=== PATIENT | female | born 1940 | race Caucasian/White ===

== ENCOUNTER 2018-02-13 05:44 | Day surgery (SDC) | payer MEDICARE, BC ==
[2018-02-07 16:26] VITALS: BMI 27.4
--- NOTE | 2018-02-12 12:42 | HP ---
HISTORY AND PHYSICAL Surgery is 02/13/2018 Yasmeen Cabello is a 77-year-old patient seen with progressive right shoulder pain. After treatment options were discussed with her, she elected to proceed with right shoulder arthroscopy. Consent regarding the procedure was obtained. Clearance was provided by Dr. Coates. PAST MEDICAL HISTORY: Past medical history is exm-avyipoy-ijzwxdnke diabetes, hypertension, hypothyroidism, hyperlipidemia. PAST SURGICAL HISTORY: Cholecystectomy, hysterectomy, mastectomy. DAILY MEDICATIONS: 1. Aspirin. 2. Cardizem. 3. Crestor. 4. Imdur. 5. Levothyroxine. 6. Prozac. ALLERGIES: CODEINE and VICODIN, which both cause vomiting. SOCIAL HISTORY: Patient denies tobacco use. PHYSICAL EXAMINATION: Physical evaluation right shoulder: Flexion 140 degrees. Abduction is 90 degrees. External rotation is 30 degrees with weakness. There is tenderness along the anterolateral acromion rotator cuff insertion site. Impingement sign is positive at 90 degrees. Distal neurovascular exam is intact. Right shoulder radiographs revealed cystic changes of the tuberosity, a type 2 anterior acromion and acromioclavicular joint osteoarthritis. A right shoulder MRI revealed rotator cuff tear, labral tear and impingement. IMPRESSION: 1. Right shoulder impingement with rotator cuff tear. 2. Right shoulder labral tear. 3. Hypertension. 4. Hyperlipidemia. 5. Hypothyroidism. PLAN: Right shoulder arthroscopy, subacromial decompression, probable arthroscopic rotator cuff repair and debridement. MMMAKEDAL / KENNETHN: [id number] /
[~2018-02-13 05:44] MED LIST: DEXAMETHASONE SOD PHOSPHATE 10 MG/ML 1 ML VIAL IV ONE; HYDROmorphone 0.5 MG/0.5 ML SYRINGE IVP PRN; LACTATED RINGERS 1,000 ML IV SCH; MORPHINE SULFATE 2 MG/ML SYRINGE IV PRN; ONDANSETRON 4 MG/2 ML VIAL IVP ONE; ceFAZolin IN SWFI 2 GM/20 ML SYRINGE IVP ONE
[2018-02-13] MEDS ORDERED: LIDOCAINE 1% 20 ML VIAL (10MG/ML) FOR IV START INTRADERMA ONE (06:36)
[2018-02-13 06:38] LABS: Glucose,Whole Blood 145 mg/dL (75-99)
[2018-02-13] MEDS ORDERED: MIDAZOLAM 2 MG/2 ML VIAL ONE (06:45)
[2018-02-13] MEDS ORDERED: MIDAZOLAM 2 MG/2 ML VIAL IV ONE (06:56)
--- NOTE | 2018-02-13 07:07 | P.ONQ ---
Anesthesiology Proc Note - PNB - Peripheral Nerve Block Performed Right Interscalene Single Time Out Performed: Yes Procedure Start Time: 06:58 Procedure Stop Time: 07:02 Indication: Acute Post-Operative Pain, Requested by physician (Dr Garcia) Sedation Type: Sedate with meaningful contact maintained Preparation: Sterile Prep Position: Supine Catheter: None Needle Types: ToZapposy Needle Size: 50mm (2") Needle Gauge: 20 Technique: Ultrasound Injectate: 0.5% Ropivacaine (see comment for volume) (30 mls) Blood Aspirated: No Pain Paresthesia on Injection Noted: No Resistance on Injection: Normal Events: Uneventful and Well Tolerated
[2018-02-13] MEDS ORDERED: GLYCOPYRROLATE 0.2 MG/ML 2 ML VIAL ONE (07:26)
[2018-02-13] MEDS ORDERED: NEOSTIGMINE 1 MG/ML 10 ML VIAL ONE (07:26)
[2018-02-13] MEDS ORDERED: fentaNYL (PF) 50 MCG/ML 2 ML AMP ONE (07:26)
[2018-02-13] MEDS ORDERED: LIDOCAINE 1% INJ 10MG/ML (20 ML MDV) ONE (07:26)
[2018-02-13] MEDS ORDERED: ePHEDrine SULFATE/0.9% NACL/PF 50 MG/5 ML SYRINGE IV ONE (07:26)
[2018-02-13] MEDS ORDERED: PROPOFOL 10 MG/ML 20 ML VIAL IV ONE (07:26)
[2018-02-13] MEDS ORDERED: ROCURONIUM BROMIDE 10 MG/ML 10 ML VIAL IV ONE (07:26)
[2018-02-13] MEDS ORDERED: ROPIVACAINE 5 MG/ML 30 ML VIAL ONE (07:26)
[2018-02-13] MEDS ORDERED: LACTATED RINGERS 1,000 ML IV ONE (08:43)
[2018-02-13 08:58] VITALS: TEMP 96.9
--- NOTE | 2018-02-13 09:03 | P.OP ---
Date of Procedure: 02/13/18 Preoperative Diagnosis: Right shoulder impingement Postoperative Diagnosis: 1. Right shoulder rotator cuff tear 2. Right shoulder impingement 3. Right shoulder acromioclavicular joint osteoarthritis 4. Right shoulder partial long head biceps tendon tear 5. Right shoulder labral tear Procedure(s) Performed: 1. Right shoulder arthroscopic rotator cuff repair 2. Right shoulder arthroscopic subacromial decompression 3. Right shoulder arthroscopic Blake procedure 4. Right shoulder arthroscopic biceps tenotomy 5. Right shoulder arthroscopic debridement labral tear Implants: 1Arthrex 5.5 swivel lock anchor Anesthesia: GETA, regional (Interscalene block) Surgeon: Carlos Garcia [employer] Ticket Taker #1: Marshall Yi Estimated Blood Loss (ml): 7 Pathology: none sent Condition: stable Disposition: PACU Indications for Procedure: 77-year-old patient seen with progressive right shoulder pain. After having treatment options discussed, she elected to proceed with arthroscopy. Operative Findings: see description of procedure Description of Procedure: Patient underwent an interscalene block by department of anesthesia for postoperative pain management. The patient was then taken to the operative suite. The patient underwent a general anesthetic by the department of anesthesia. The patient was placed into a lateral position and secured. There was appropriate padding of the bony prominence. Right shoulder was then prepped and draped in normal sterile orthopedic fashion. We placed the extremity in 10 pounds of longitudinal traction. A posterior incision was now made for a posterior working portal site. The trocar and cannula were inserted into the glenohumeral joint. Arthroscopy was initiated. Spinal needle was now inserted anteriorly, to ascertain the anterior working portal site. An incision was now made in that area, a trocar was inserted followed by a probe. There was some superficial tearing of the superior labrum. There was some partial tearing and hyperemia of the biceps tendon. There were grade 1 chondromalacia changes without significant osteochondral tears present. The residual labrum appeared stable. I could visualize a full-thickness rotator cuff tear from the glenohumeral side. I performed an arthroscopic biceps tenotomy. I debrided that superficial labral tear getting down to stable labral tissue. The residual labrum was probed and found to be stable. Instruments were now removed from the glenohumeral joint. Utilizing the posterior working portal site, the trocar and cannula were inserted into the subacromial space. Arthroscopy initiated. I made an incision 2 fingerbreadths lateral to the acromion. I introduced my trocar followed by my ArthroCare ablator. I now began ablating thick subacromial bursal tissue, which exposed the undersurface of the anterior acromion. There was diminished subacromial space. There was a very prominent anterior acromion. A motorized bur was introduced and a subacromial decompression was performed. I also excised some osteophytes off the inferior aspect of the distal clavicle. The AC joint was visualized and noted to be fairly arthritic. The motorized bur was introduced in the anterior portal site and a Blake procedure was performed without difficulty, decompressing the AC joint nicely. I turned my attention to the rotator cuff. There was a 1 cm rotator cuff tear. I debrided the margins getting down to stable tendon tissue. The defect now measured approximately 1.5 cm. There was an intrasubstance tear component to it. I introduced my motorized bur and abraded the footprint area, getting some petechial bleeding. I repaired the intrasubstance component with one single [id number] suture which brought the tendon together very nicely. I now passed 2 everted mattress sutures with the assistance of Goldy HINOJOSA holding the arm in the correct position. I now passed a single loop suture through the central portion of the tear well again oGldy HINOJOSA held the arm in appropriate position. I now punched a hole for fixation at the year the footprint while Goldy HINOJOSA held the arm in appropriate position. All suture limbs were passed into the anchor. The anchor was then placed down into our pre-punch hole. I held anchor in position while Goldy HINOJOSA tension all the sutures and introduced the anchor. There appeared be good fixation. All residual suture limbs were now clipped. We had good compression of the tendon along the entire footprint. I injected 1 mL Renue intra-articular. Instruments now removed from the portal sites. All portal sites were approximated with nylon suture. Sterile dressings were applied followed by a shoulder sling. Marshall HINOJOSA assisted in this case. The patient was awakened, transferred to a bed, and taken to recovery in stable condition.
[2018-02-13 09:25] LABS: Glucose,Whole Blood 151 mg/dL (75-99)
[2018-02-13 10:01] VITALS: RESP 16
[2018-02-13] MEDS ORDERED: ALBUTEROL NEBULIZED 1.25 MG/3 ML INHALATION ONE (11:37)
[2018-02-13] MEDS ORDERED: ALBUTEROL NEBULIZED 2.5 MG/3 ML INHALATION STA (11:40)
[2018-02-13 12:00] VITALS: PULSE 73
[2018-02-13 12:33] VITALS: BP 100/55
== END 2018-02-13 12:53 | disposition home or self-care (01) ==
LOC: OR 05:44
PROVIDERS: ATTEND Orthopaedic Surgery
DX: M75.121 Complete rotator cuff tear or rupture of right shoulder, not specified as traumatic (principal); S43.491A Other sprain of right shoulder joint, initial encounter; S46.111A Strain of muscle, fascia and tendon of long head of biceps, right arm, initial encounter; X58.XXXA Exposure to other specified factors, initial encounter; M94.211 Chondromalacia, right shoulder; M25.711 Osteophyte, right shoulder; M75.41 Impingement syndrome of right shoulder; M19.011 Primary osteoarthritis, right shoulder; J44.9 Chronic obstructive pulmonary disease, unspecified; E78.00 Pure hypercholesterolemia, unspecified; E03.9 Hypothyroidism, unspecified; I10 Essential (primary) hypertension; E11.9 Type 2 diabetes mellitus without complications; F32.9 Major depressive disorder, single episode, unspecified; E55.9 Vitamin D deficiency, unspecified; R42 Dizziness and giddiness; Z79.890 Hormone replacement therapy; Z79.51 Long term (current) use of inhaled steroids; Z79.82 Long term (current) use of aspirin; Z79.899 Other long term (current) drug therapy; Z88.5 Allergy status to narcotic agent; Z90.710 Acquired absence of both cervix and uterus; Z90.10 Acquired absence of unspecified breast and nipple; Z85.3 Personal history of malignant neoplasm of breast; Z87.891 Personal history of nicotine dependence
CPT/HCPCS: 29824; 29827; 29826; 94640; 64415; C1713 ×2; C1765; J2250; J1100; J2710; J2405; J2001; J3010; J2795; J2704; J0690

== ENCOUNTER 2020-05-05 10:28 | Inpatient (IN) | payer MEDICARE, BC ==
[2020-05-05] MEDS ORDERED: ACETAMINOPHEN TAB 325 MG TAB PO STA (10:50)
[2020-05-05] MEDS ORDERED: ALBUTEROL HFA INHALER INHALATION STA (10:55)
--- NOTE | 2020-05-05 10:58 | ED ---
General Adult HPI - General Chief complaint: Shortness of Breath Stated complaint: SOB Time Seen by Provider: 05/05/20 10:36 Source: patient, EMS, RN notes reviewed Mode of arrival: EMS Limitations: physical limitation - History of Present Illness Initial comments: 79-year-old female with a past medical history of COPD, hyperlipidemia, hypertension, remote breast cancer presents to the emergency room for a chief complaint of shortness of breath. She tested positive for covid 7 days ago. States she has had increased shortness of breath since that time however last night it worsened significantly. She did try a breathing treatment but it did not seem to help. Patient states she sometimes answers 2-1/2 L of oxygen at home if she needs it and she has been using this regularly since shes been diagnosed however it does not seem to be helping now. Patient admits to chills and body aches. Unsure if she has fevers.Patient has no other complaints at this time including chest pain, abdominal pain, nausea or vomiting, headache, or visual changes. - Related Data Home Medications Medication Instructions Recorded Confirmed FLUoxetine HCL [PROzac] 20 mg PO DAILY 02/08/18 05/05/20 Rosuvastatin [Crestor] 20 mg PO HS 02/08/18 05/05/20 Diltiazem HCl [Cardizem CD] 240 mg PO DAILY 05/05/20 05/05/20 Latanoprost [Xalatan 0.005%] 1 drop BOTH EYES HS 05/05/20 05/05/20 Levothyroxine Sodium [Synthroid] 50 mcg PO DAILY 05/05/20 05/05/20 Nitroglycerin Sl Tabs [Nitrostat] 0.4 mg SL Q5M PRN 05/05/20 05/05/20 Nystatin 100,000 Unit/ml Susp 500,000 unit PO QID 05/05/20 05/05/20 [Mycostatin Oral Susp] metFORMIN HCL [Glucophage] 500 mg PO DAILY 05/05/20 05/05/20 Allergies Allergy/AdvReac Type Severity Reaction Status Date / Time acetaminophen [From Vicodin] AdvReac Vomiting Verified 05/05/20 10:50 codeine AdvReac Vomiting Verified 05/05/20 10:50 hydrocodone [From Vicodin] AdvReac Vomiting Verified 05/05/20 10:50 Review of Systems ROS Statement: Those systems with pertinent positive or pertinent negative responses have been documented in the HPI. ROS Other: All systems not noted in ROS Statement are negative. Past Medical History Past Medical History: Cancer, Chest Pain / Angina, COPD, Eye Disorder, Hyperlipidemia, Hypertension, Osteoarthritis (OA), Pneumonia Additional Past Medical History / Comment(s): Right breast cancer 16 yrs ago, skin cancer on nose, pneumonia X6, last 2 yrs ago, macular degeneration. History of Any Multi-Drug Resistant Organisms: None Reported Past Surgical History: Breast Surgery, Cholecystectomy, Heart Catheterization, Hysterectomy, Orthopedic Surgery Additional Past Surgical History / Comment(s): Heart Catheterization X2, non cancerous tumor removed from right shoulder, right knee surgery, right mastectomy, kidney biopsy, skin cancer removed from nose, eye surgery for macular degeneration. Past Anesthesia/Blood Transfusion Reactions: Previous Problems w/ Anesthesia Additional Past Anesthesia/Blood Transfusion Reaction / Comment(s): Hard time waking up X1. Past Psychological History: Depression Smoking Status: Former smoker Past Alcohol Use History: Occasional Past Drug Use History: None Reported - Past Family History Mother Family Medical History: No Reported History Father Family Medical History: Cancer Additional Family Medical History / Comment(s): Colon cancer. General Exam Limitations: physical limitation General appearance: alert, in no apparent distress Head exam: Present: atraumatic, normocephalic, normal inspection Eye exam: Present: normal appearance, PERRL, EOMI. Absent: scleral icterus, conjunctival injection, periorbital swelling ENT exam: Present: normal exam, mucous membranes moist Neck exam: Present: normal inspection, full ROM. Absent: tenderness, meningismus, lymphadenopathy Respiratory exam: Present: wheezes. Absent: respiratory distress, rales, rhonchi, stridor Cardiovascular Exam: Present: regular rate, normal rhythm, normal heart sounds. Absent: systolic murmur, diastolic murmur, rubs, gallop, clicks GI/Abdominal exam: Present: soft, normal bowel sounds. Absent: distended, tenderness, guarding, rebound, rigid Course Vital Signs 05/05/20 05/05/20 10:42 12:14 Temperature 99.9 F H 99.4 F Pulse Rate 102 H 98 Respiratory 22 18 Rate Blood Pressure 114/71 133/73 O2 Sat by Pulse 91 L 94 L Oximetry EKG Findings - EKG Comments: EKG Findings:: Sinus rhythm, ventricular rate 100, NH interval 130, QTC 497 Medical Decision Making - Medical Decision Making 79-year-old female on 2 L PRN oxygen at home presents to the emergency room for shortness of breath. She is cold with positive. Patient thought she was going to "kick it" last night. Patient found to be at 88% on 2 L on initial presentation. She was really short of breath, had difficulty speaking in full sentences. She does have minimal wheezing on exam.. She was increased to 4 L in the emergency room. CBC unremarkable. CMP does show mild hypokalemia, replaced orally. It is CRP elevated. LDH elevated. Chest x-ray demonstrates a new left basilar pneumonia and lesser degree of patchy infiltrate at the right lung base. D-dimer slightly elevated at 0.91. I did discuss his case with Dr. Jackman who requests CAT scan be performed. He does accept this admission given patient is acutely hypoxic. She'll be given Decadron given she is requiring oxygen administration for Covid. - Lab Data Result diagrams: 05/05/20 10:52 05/05/20 10:52 Lab Results 05/05/20 05/05/20 05/05/20 Range/Units 10:52 10:52 10:52 WBC 10.3 (3.8-10.6) k/uL RBC 5.21 (3.80-5.40) m/uL Hgb 15.2 (11.4-16.0) gm/dL Hct 44.2 (34.0-46.0) % MCV 84.8 (80.0-100.0) fL MCH 29.1 (25.0-35.0) pg MCHC 34.3 (31.0-37.0) g/dL RDW 13.1 (11.5-15.5) % Plt Count 187 (150-450) k/uL MPV 8.1 Neutrophils % 80 % Lymphocytes % 10 % Monocytes % 8 % Eosinophils % 1 % Basophils % 1 % Neutrophils # 8.3 H (1.3-7.7) k/uL Lymphocytes # 1.0 (1.0-4.8) k/uL Monocytes # 0.8 (0-1.0) k/uL Eosinophils # 0.1 (0-0.7) k/uL Basophils # 0.1 (0-0.2) k/uL PT 12.0 (9.0-12.0) sec INR 1.2 H (<1.2) APTT 22.9 (22.0-30.0) sec D-Dimer 0.90 H (<0.60) mg/L FEU Sodium 132 L (137-145) mmol/L Potassium 3.0 L (3.5-5.1) mmol/L Chloride 91 L (98-107) mmol/L Carbon Dioxide 35 H (22-30) mmol/L Anion Gap 6 mmol/L BUN 13 (7-17) mg/dL Creatinine 0.40 L (0.52-1.04) mg/dL Est GFR (CKD-EPI)AfAm >90 (>60 ml/min/1.73 sqM) Est GFR (CKD-EPI)NonAf >90 (>60 ml/min/1.73 sqM) Glucose 146 H (74-99) mg/dL Plasma Lactic Acid Johan (0.7-2.0) mmol/L Calcium 8.3 L (8.4-10.2) mg/dL Magnesium 1.6 (1.6-2.3) mg/dL Total Bilirubin 1.1 (0.2-1.3) mg/dL AST 51 H (14-36) U/L ALT 46 H (4-34) U/L Alkaline Phosphatase 75 (38-126) U/L Lactate Dehydrogenase 796 H (313-618) U/L Troponin I (0.000-0.034) ng/mL C-Reactive Protein 31.6 H (<10.0) mg/L Total Protein 6.6 (6.3-8.2) g/dL Albumin 3.7 (3.5-5.0) g/dL 05/05/20 05/05/20 Range/Units 10:52 11:05 WBC (3.8-10.6) k/uL RBC (3.80-5.40) m/uL Hgb (11.4-16.0) gm/dL Hct (34.0-46.0) % MCV (80.0-100.0) fL MCH (25.0-35.0) pg MCHC (31.0-37.0) g/dL RDW (11.5-15.5) % Plt Count (150-450) k/uL MPV Neutrophils % % Lymphocytes % % Monocytes % % Eosinophils % % Basophils % % Neutrophils # (1.3-7.7) k/uL Lymphocytes # (1.0-4.8) k/uL Monocytes # (0-1.0) k/uL Eosinophils # (0-0.7) k/uL Basophils # (0-0.2) k/uL PT (9.0-12.0) sec INR (<1.2) APTT (22.0-30.0) sec D-Dimer (<0.60) mg/L FEU Sodium (137-145) mmol/L Potassium (3.5-5.1) mmol/L Chloride (98-107) mmol/L Carbon Dioxide (22-30) mmol/L Anion Gap mmol/L BUN (7-17) mg/dL Creatinine (0.52-1.04) mg/dL Est GFR (CKD-EPI)AfAm (>60 ml/min/1.73 sqM) Est GFR (CKD-EPI)NonAf (>60 ml/min/1.73 sqM) Glucose (74-99) mg/dL Plasma Lactic Acid Johan 1.9 (0.7-2.0) mmol/L Calcium (8.4-10.2) mg/dL Magnesium (1.6-2.3) mg/dL Total Bilirubin (0.2-1.3) mg/dL AST (14-36) U/L ALT (4-34) U/L Alkaline Phosphatase (38-126) U/L Lactate Dehydrogenase (313-618) U/L Troponin I <0.012 (0.000-0.034) ng/mL C-Reactive Protein (<10.0) mg/L Total Protein (6.3-8.2) g/dL Albumin (3.5-5.0) g/dL Disposition Clinical Impression: COVID-19, Acute respiratory failure with hypoxia, Pneumonia, COPD exacerbation Disposition: ADMITTED IP TO THIS HOSP Condition: Fair Is patient prescribed a controlled substance at d/c from ED?: No Referrals: Markie Coates MD [Primary Care Provider] - 1-2 days Time of Disposition: 12:18
[2020-05-05 11:10] LABS: Basophils # (A) 0.1 k/uL (0-0.2); Basophils % (A) 1 %; Eosinophils # (A) 0.1 k/uL (0-0.7); Eosinophils % (A) 1 %; HCT 44.2 % (34.0-46.0); HGB 15.2 gm/dL (11.4-16.0); Lymphocytes % (A) 10 %; MCH 29.1 pg (25.0-35.0); MCHC 34.3 g/dL (31.0-37.0); MCV 84.8 fL (80.0-100.0); Mean Platelet Volume 8.1; Monocytes # (A) 0.8 k/uL (0-1.0); Monocytes % (A) 8 %; Neutrophils # (A) 8.3 k/uL (1.3-7.7); Neutrophils % (A) 80 %; Platelet Count 187 k/uL (150-450); RBC 5.21 m/uL (3.80-5.40); RDW 13.1 % (11.5-15.5); WBC 10.3 k/uL (3.8-10.6)
--- NOTE | 2020-05-05 11:22 | XR ---
EXAMINATION TYPE: XR chest 1V portable DATE OF EXAM: 05/05/2020 Comparison: 07/05/2018 Clinical History: 79-year-old female weakness and short of breath, Suspected COVID-19 pneumonia Findings: Heart upper limits of normal in size. New left basilar opacity with obscuration of the left hemidiaph ragm. Additional patchy right basilar opacity. Mild hyperinflation may reflect underlying emphysema. Impression: New left basilar opacity/pneumonia. Possible small effusion. Lesser degree of patchy infiltrate at th e right base.
[2020-05-05 11:28] LABS: ALT 46 U/L (4-34); AST 51 U/L (14-36); African American GFR (CKD) >90 (>60 ml/min/1.73 sqM); Albumin 3.7 g/dL (3.5-5.0); Alkaline Phosphatase 75 U/L (38-126); Anion Gap 6 mmol/L; Blood Urea Nitrogen 13 mg/dL (7-17); C Reactive Protein 31.6 mg/L (<10.0); Calcium 8.3 mg/dL (8.4-10.2); Carbon Dioxide 35 mmol/L (22-30); Chloride 91 mmol/L (98-107); Glucose 146 mg/dL (74-99); LDH 796 U/L (313-618); Magnesium 1.6 mg/dL (1.6-2.3); Non-African American GFR(CKD) >90 (>60 ml/min/1.73 sqM); Sodium 132 mmol/L (137-145); Total Bilirubin 1.1 mg/dL (0.2-1.3); Total Protein 6.6 g/dL (6.3-8.2)
[2020-05-05 11:36] LABS: INR 1.2 (<1.2); Partial Thromboplastin Time 22.9 sec (22.0-30.0)
[2020-05-05] MEDS ORDERED: POTASSIUM CHLORIDE ER 20 MEQ TAB.ER PO STA (11:50)
[2020-05-05] MEDS ORDERED: NALOXONE 0.4 MG/ML 1 ML VIAL IV PRN (12:11)
[2020-05-05] MEDS: SODIUM CHLORIDE 0.9% 1,000 ML IV SCH (12:16)
--- NOTE | 2020-05-05 13:56 | CT ---
CT CHEST FOR PULMONARY EMBOLISM. EXAMINATION TYPE: CT chest angio for PE DATE OF EXAM: 05/05/2020 INDICATION: SOB CT DLP: 297.8 mGycm, Automated exposure control for dose reduction was used. CONTRAST: Patient injected with 85 mL of Isovue 370. COMPARISON: None TECHNIQUE: CT of the chest is performed on a spiral scan at 2 mm thick sections. Study is performed with intravenous contrast timed for evaluation for pulmonary embolism. This will limit additional po rtions of the evaluation. 3-D MIP images reconstructed by the technologist are reviewed on the compu ter in the coronal and sagittal planes. FINDINGS: No persistent filling defects are evident to suggest an acute pulmonary embolism. No right heart stra in is evident. No mediastinal or hilar adenopathy enlarged by CT criteria is evident. The ascending aorta diameter at the level of the main pulmonary artery is 3.0 cm. The main pulmonary artery diameter at the bifur cation is 3.2 cm. Correlate for pulmonary hypertension. Mild scattered peripheral infiltrates are present. These are nonspecific but can be associated with a telectasis or atypical pneumonia. More focal density may be within the lingula measuring 1.1 cm. Seri es 406, image 55. Emphysematous changes present. Streak atelectasis is likely within the right middle lobe upper portion There is been a right mastectomy. Limited CT section through the upper abdomen. There may be some mild fatty infiltration liver. IMPRESSIONS: 1. No acute pulmonary embolism. 2. Scattered peripheral infiltrates lower lung greene. Atelectasis and atypical pneumonia could be co nsidered. 3. Small focal density anterior medial mid lingula. This could be an infiltrate or nodule. Follow-up is recommended
[2020-05-05] MEDS: ALBUTEROL HFA INHALER INHALATION SCH ×2 (14:15→20:04)
[2020-05-05] MEDS: DEXAMETHASONE SOD PHOSPHATE 10 MG/ML 1 ML VIAL IV SCH (14:18)
[2020-05-05 20:45] LABS: Ferritin 125.1 ng/mL (10.0-291.0)
[2020-05-06] MEDS: ALBUTEROL HFA INHALER INHALATION SCH ×4 (01:34→19:35)
[2020-05-06] MEDS: ACETAMINOPHEN TAB 325 MG TAB PO PRN ×2 (04:11→18:55)
[2020-05-06] MEDS: DEXAMETHASONE SOD PHOSPHATE 10 MG/ML 1 ML VIAL IV SCH (09:14)
[2020-05-06] MEDS: SODIUM CHLORIDE 0.9% 1,000 ML IV SCH (12:29)
[2020-05-06 12:59] VITALS: BMI 26.6
[2020-05-06] MEDS ORDERED: NITROGLYCERIN SL TABS 0.4 MG TAB SUBLINGUAL PRN (13:16)
[2020-05-06] MEDS ORDERED: REMDESIVIR 200 MG in SODIUM CHLORIDE 0.9% 250 ML IVPB ONE (17:00)
[2020-05-06] MEDS: ATORVASTATIN 40 MG TAB PO SCH (18:55)
[2020-05-06] MEDS: LATANOPROST 0.005% OPHTH DROPS 2.5 ML BTL BOTH EYES SCH (18:59)
[2020-05-07] MEDS: LEVOTHYROXINE 50 MCG TAB PO SCH (04:40)
[2020-05-07] MEDS: ACETAMINOPHEN TAB 325 MG TAB PO PRN (04:42)
[2020-05-07] MEDS: ALBUTEROL HFA INHALER INHALATION SCH ×5 (05:00→20:27)
[2020-05-07] MEDS: DEXAMETHASONE SOD PHOSPHATE 10 MG/ML 1 ML VIAL IV SCH (08:16)
[2020-05-07] MEDS: metFORMIN 500 MG TAB PO SCH ×2 (08:16→08:22)
[2020-05-07] MEDS: DILTIAZEM CD 240 MG CAP.ER.24H PO SCH (08:17)
[2020-05-07] MEDS: FLUoxetine HCL 20 MG CAP PO SCH (08:17)
[2020-05-07 08:23] LABS: Glucose,Whole Blood 178 mg/dL (75-99)
[2020-05-07 08:45] LABS: Basophils # (A) 0.1 k/uL (0-0.2); Basophils % (A) 1 %; Eosinophils % (A) 0 %; HCT 44.2 % (34.0-46.0); HGB 14.6 gm/dL (11.4-16.0); Lymphocytes # (A) 0.8 k/uL (1.0-4.8); Lymphocytes % (A) 8 %; MCH 29.1 pg (25.0-35.0); MCHC 33.1 g/dL (31.0-37.0); MCV 88.1 fL (80.0-100.0); Mean Platelet Volume 8.5; Monocytes # (A) 0.6 k/uL (0-1.0); Monocytes % (A) 7 %; Neutrophils # (A) 7.8 k/uL (1.3-7.7); Neutrophils % (A) 82 %; Platelet Count 190 k/uL (150-450); RBC 5.01 m/uL (3.80-5.40); RDW 13.2 % (11.5-15.5); WBC 9.5 k/uL (3.8-10.6)
[2020-05-07] MEDS: ALPRAZolam 0.25 MG TAB PO PRN (09:55)
[2020-05-07 11:25] LABS: African American GFR (CKD) 105.2 (60.0-200.0); Anion Gap 7.7 mmol/L (4.00-12.00); Calcium 8.6 mg/dL (8.7-10.3); Carbon Dioxide 34.3 mmol/L (21.6-31.8); Magnesium 1.9 mg/dL (1.5-2.4); Non-African American GFR(CKD) 90.8 (60.0-200.0); Potassium 4.4 mmol/L (3.5-5.5)
[2020-05-07 12:31] LABS: Glucose,Whole Blood 329 mg/dL (75-99)
[2020-05-07] MEDS ORDERED: INSULIN ASPART (NovoLOG) 100 UNIT/ML VIAL SQ ONE (13:14)
[2020-05-07] MEDS: SODIUM CHLORIDE 0.9% 1,000 ML IV SCH (13:20)
[2020-05-07 17:01] LABS: Glucose,Whole Blood 340 mg/dL (75-99)
[2020-05-07] MEDS: ZINC SULFATE 220 MG CAP PO SCH (17:37)
[2020-05-07] MEDS: MULTIVITAMINS, THERA 1 EACH TAB PO SCH (17:37)
[2020-05-07] MEDS: CHOLECALCIFEROL 1,000 UNIT TAB PO SCH (17:37)
[2020-05-07] MEDS: ASCORBIC ACID 500 MG TAB PO SCH (17:38)
[2020-05-07] MEDS: REMDESIVIR 100 MG in SODIUM CHLORIDE 0.9% 250 ML IVPB SCH (17:38)
[2020-05-07] MEDS: INSULIN ASPART (NovoLOG) 100 UNIT/ML VIAL SQ SCH ×2 (17:38→20:49)
[2020-05-07] MEDS: LATANOPROST 0.005% OPHTH DROPS 2.5 ML BTL BOTH EYES SCH (19:58)
[2020-05-07] MEDS: ATORVASTATIN 40 MG TAB PO SCH (19:58)
[2020-05-07] MEDS: ENOXAPARIN 30 MG/0.3 ML SYRINGE SQ SCH (19:59)
[2020-05-07 20:43] LABS: Glucose,Whole Blood 261 mg/dL (75-99)
[2020-05-08] MEDS: ALBUTEROL HFA INHALER INHALATION SCH ×4 (03:10→19:15)
[2020-05-08] MEDS: LEVOTHYROXINE 50 MCG TAB PO SCH (04:45)
[2020-05-08 07:02] LABS: Glucose,Whole Blood 202 mg/dL (75-99)
[2020-05-08] MEDS: INSULIN ASPART (NovoLOG) 100 UNIT/ML VIAL SQ SCH ×4 (08:06→21:31)
[2020-05-08] MEDS: FLUoxetine HCL 20 MG CAP PO SCH (08:06)
[2020-05-08] MEDS: metFORMIN 500 MG TAB PO SCH (08:07)
[2020-05-08] MEDS: ENOXAPARIN 30 MG/0.3 ML SYRINGE SQ SCH ×2 (08:07→21:31)
[2020-05-08] MEDS: DILTIAZEM CD 240 MG CAP.ER.24H PO SCH (08:07)
[2020-05-08] MEDS: DEXAMETHASONE SOD PHOSPHATE 10 MG/ML 1 ML VIAL IV SCH (09:12)
[2020-05-08 11:12] LABS: Glucose,Whole Blood 225 mg/dL (75-99)
[2020-05-08] MEDS: SODIUM CHLORIDE 0.9% 1,000 ML IV SCH (11:47)
--- NOTE | 2020-05-08 12:35 | P.HPIM ---
History of Present Illness H&P Date: 05/06/20 Chief Complaint: Shortness of breath This is a pleasant 79-year-old female who was diagnosed as covert infection about 7 days ago, progressive increased shortness of breath has been noted in the last 2 days was hypoxic unable to complete full sentences, came into the hospital for further evaluation and intervention and treatment, patient has significant history of depression dyslipidemia hypertension hypertensive cardiovascular disease, hypothyroidism, angina, type 2 diabetes mellitus, in emergency department she was noted to have a low-grade fever she was tachypneic tachycardic, wiring 2 L supplemental oxygen, patient underwent chest x-ray and computed tomography scan of the chest, patient admitted into the hospital with supplemental oxygen IV steroids and REMdesivir therapy her chest x-ray assistive of left-sided pneumonia and small left-sided pleural effusion bilateral interstitial infiltrate also involving the right side in patchy fashion, ED of chest failed to show any pulmonary embolism however confirmed similar findings, heart covid 19 came back positive Review of Systems All systems: negative Past Medical History Past Medical History: Cancer, Chest Pain / Angina, COPD, Diabetes Mellitus, Eye Disorder, GERD/Reflux, Hyperlipidemia, Hypertension, Osteoarthritis (OA), Pn eumonia, Respiratory Disorder, Thyroid Disorder Additional Past Medical History / Comment(s): Pt states she received + covid results on 05/02/20 at a [facility] from [facility]. 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 History of Any Multi-Drug Resistant Organisms: None Reported Past Surgical History: Breast Surgery, Cholecystectomy, Heart Catheterization, Hysterectomy, Orthopedic Surgery Additional Past Surgical History / Comment(s): R mastectomy, R shoulder arthroscopy, R shoulder benign tumor removed, R knee arthroscopy, renal biopsy- pt cannot recall reason, L eye macular hole with repair, bilateral cataract removals, colonoscopies, R inguinal hernia repair, pt thinks she has had a bronchoscopy in the past. Past Anesthesia/Blood Transfusion Reactions: Previous Problems w/ Anesthesia Additional Past Anesthesia/Blood Transfusion Reaction / Comment(s): Hard time waking up X1. Smoking Status: Former smoker - Past Family History Mother Family Medical History: Dementia Father Family Medical History: Cancer Additional Family Medical History / Comment(s): Colon cancer. Sister(s) Family Medical History: Cancer Additional Family Medical History / Comment(s): colon cancer. Medications and Allergies Home Medications Medication Instructions Recorded Confirmed Type FLUoxetine HCL [PROzac] 20 mg PO DAILY 02/08/18 05/05/20 History Rosuvastatin [Crestor] 20 mg PO HS 02/08/18 05/05/20 History Diltiazem HCl [Cardizem CD] 240 mg PO DAILY 05/05/20 05/05/20 History Latanoprost [Xalatan 0.005%] 1 drop BOTH EYES HS 05/05/20 05/05/20 History Levothyroxine Sodium [Synthroid] 50 mcg PO DAILY 05/05/20 05/05/20 History Nitroglycerin Sl Tabs [Nitrostat] 0.4 mg SL Q5M PRN 05/05/20 05/05/20 History Nystatin 100,000 Unit/ml Susp 500,000 unit PO QID 05/05/20 05/05/20 History [Mycostatin Oral Susp] metFORMIN HCL [Glucophage] 500 mg PO DAILY 05/05/20 05/05/20 History Allergies Allergy/AdvReac Type Severity Reaction Status Date / Time acetaminophen [From Vicodin] AdvReac Vomiting Verified 05/05/20 10:50 codeine AdvReac Vomiting Verified 05/05/20 10:50 hydrocodone [From Vicodin] AdvReac Vomiting Verified 05/05/20 10:50 Physical Exam Vitals: Vital Signs Temp Pulse Resp BP Pulse Ox 05/06/20 12:10 97.8 F 94 26 H 136/91 05/06/20 05:14 98.6 F 81 20 145/75 93 L 05/05/20 20:00 98.7 F 94 18 114/62 92 L Intake and Output 05/06/20 05/06/20 05/06/20 06:59 14:59 22:59 Intake Total 960 Output Total 600 Balance 360 Intake: Oral 960 Output: Urine 600 Uretheral (Fenton) 600 Other: # Voids 2 # Bowel Movements 1 Weight 70.307 kg - Constitutional General appearance: average body habitus, cooperative, disheveled - EENT Eyes: PERRLA ENT: hearing grossly normal Ears: bilateral: normal - Neck Neck: normal ROM Carotids: bilateral: upstroke normal Thyroid: bilateral: normal size - Respiratory Respiratory: bilateral: diminished - Cardiovascular Rhythm: regular Heart sounds: normal: S1, S2 - Gastrointestinal General gastrointestinal: decreased bowel sounds - Integumentary Integumentary: normal turgor - Neurologic Neurologic: CNII-XII intact - Musculoskeletal Musculoskeletal: gait normal, generalized weakness, strength equal bilaterally - Psychiatric Psychiatric: A&O x's 3, appropriate affect, intact judgment & insight Results CBC & Chem 7: 05/07/20 08:17 05/07/20 08:17 Labs: Microbiology - Last 24 Hours (Table) 05/05/20 11:20 Blood Culture - Preliminary Blood No Growth after 24 hours Chest x-ray: report reviewed, image reviewed Abdominal x-ray: report reviewed, image reviewed (Finding as noted above) Thrombosis Risk Factor Assmnt - Choose All That Apply Any of the Below Risk Factors Present?: Yes Each Factor Represents 1 point: Abnormal pulmonary function (COPD), Obesity (BMI >25), Serious lung disease incl. pneumonia (< 1month) Other Risk Factors: Yes Each Risk Factor Represents 2 Points: Malignancy Each Risk Factor Represents 3 Points: Age 75 years or older Other congenital or acquired thrombophilia - If yes, enter type in comment: No Thrombosis Risk Factor Assessment Total Risk Factor Score: 8 Thrombosis Risk Factor Assessment Level: High Risk Assessment and Plan Assessment: Acute hypoxic respiratory failure Covid 19 pneumonia Uncontrolled diabetes Hypertension hypertensive cardiovascular disease Hypothyroidism Lipidemia Generalized anxiety disorder Plan: Supplemental oxygen Deep breathing exercise incentive spirometry Prone positioning Decadron RAMdesivir for 5 days Replacement of electrolytes and minerals vitamins including vitamin C, zinc, D Continue home medications Recommendations pending plan of care as per clinical response of the patient Time with Patient: Greater than 30
--- NOTE | 2020-05-08 12:39 | P.PN ---
Subjective Progress Note Date: 05/07/20 Principal diagnosis: Acute hypoxic respiratory failure Covid 19 pneumonia Uncontrolled diabetes Hypertension hypertensive cardiovascular disease Hypothyroidism Lipidemia Generalized anxiety disorder 05/07/2020, patient seen eval examined overall respiratory status remains compromised, patient is on 15 L high flow oxygen, saturation is mid 80s, will switch to aerosolized oxygen continue supportive care instructed to continue deep breathing exercises incentive spirometry will add broad-spectrum antibiotics as well This is a pleasant 79-year-old female who was diagnosed as covert infection about 7 days ago, progressive increased shortness of breath has been noted in the last 2 days was hypoxic unable to complete full sentences, came into the hospital for further evaluation and intervention and treatment, patient has significant history of depression dyslipidemia hypertension hypertensive cardiovascular disease, hypothyroidism, angina, type 2 diabetes mellitus, in emergency department she was noted to have a low-grade fever she was tachypneic tachycardic, wiring 2 L supplemental oxygen, patient underwent chest x-ray and computed tomography scan of the chest, patient admitted into the hospital with supplemental oxygen IV steroids and REMdesivir therapy her chest x-ray assistive of left-sided pneumonia and small left-sided pleural effusion bilateral interstitial infiltrate also involving the right side in patchy fashion, ED of chest failed to show any pulmonary embolism however confirmed similar findings, heart covid 19 came back positive Objective - Vital Signs Vital signs: Vital Signs Temp 98.6 F 05/07/20 05:00 Pulse 69 05/07/20 05:00 Resp 14 05/07/20 05:00 BP 131/66 05/07/20 05:00 Pulse Ox 95 05/07/20 12:43 Intake & Output 05/06/20 05/07/20 05/07/20 18:59 06:59 18:59 Intake Total 250 240 Output Total 400 Balance 250 -160 Weight 70.307 kg Intake: Intake, IV Titration 250 Amount Remdesivir 200 mg In 250 Sodium Chloride 0.9% 250 ml @ 250 mls/hr IVPB ONCE ONE Rx#:[id number] Oral 240 Output: Urine 400 Other: Voiding Method Bedside Commode # Voids 3 2 # Bowel Movements 0 - Exam - Constitutional General appearance: average body habitus, cooperative, disheveled - EENT Eyes: PERRLA ENT: hearing grossly normal Ears: bilateral: normal - Neck Neck: normal ROM Carotids: bilateral: upstroke normal Thyroid: bilateral: normal size - Respiratory Respiratory: bilateral: diminished - Cardiovascular Rhythm: regular Heart sounds: normal: S1, S2 - Gastrointestinal General gastrointestinal: decreased bowel sounds - Integumentary Integumentary: normal turgor - Neurologic Neurologic: CNII-XII intact - Musculoskeletal Musculoskeletal: gait normal, generalized weakness, strength equal bilaterally - Psychiatric Psychiatric: A&O x's 3, appropriate affect, intact judgment & insight - Labs CBC & Chem 7: 05/07/20 08:17 05/07/20 08:17 Labs: Abnormal Lab Results - Last 24 Hours (Table) 05/07/20 05/07/20 05/07/20 Range/Units 08:17 08:17 08:21 Neutrophils # 7.8 H (1.3-7.7) k/uL Lymphocytes # 0.8 L (1.0-4.8) k/uL Carbon Dioxide 34.3 H (21.6-31.8) mmol/L Creatinine 0.5 L (0.6-1.5) mg/dL BUN/Creatinine Ratio 28.00 H (12.00-20.00) Ratio Glucose 190 H (70-110) mg/dL POC Glucose (mg/dL) 178 H (75-99) mg/dL Calcium 8.6 L (8.7-10.3) mg/dL 05/07/20 Range/Units 12:19 Neutrophils # (1.3-7.7) k/uL Lymphocytes # (1.0-4.8) k/uL Carbon Dioxide (21.6-31.8) mmol/L Creatinine (0.6-1.5) mg/dL BUN/Creatinine Ratio (12.00-20.00) Ratio Glucose (70-110) mg/dL POC Glucose (mg/dL) 329 H (75-99) mg/dL Calcium (8.7-10.3) mg/dL Microbiology - Last 24 Hours (Table) 05/05/20 11:20 Blood Culture - Preliminary Blood No Growth after 48 hours Assessment and Plan Assessment: Acute hypoxic respiratory failure Covid 19 pneumonia Uncontrolled diabetes Hypertension hypertensive cardiovascular disease Hypothyroidism Lipidemia Generalized anxiety disorder Plan: Supplemental oxygen Deep breathing exercise incentive spirometry Prone positioning Decadron RAMdesivir for 5 days Replacement of electrolytes and minerals vitamins including vitamin C, zinc, D Continue home medications Recommendations pending plan of care as per clinical response of the patient Time with Patient: Greater than 30
--- NOTE | 2020-05-08 12:41 | P.PN ---
Subjective Progress Note Date: 05/08/20 Principal diagnosis: Acute hypoxic respiratory failure Covid 19 pneumonia Uncontrolled diabetes Hypertension hypertensive cardiovascular disease Hypothyroidism Lipidemia Generalized anxiety disorder 05/08/2020, patient seen eval examined during the rounds currently patient is on 20 L, 50% oxygen, saturation is mid 90s his sputum is being sent for Gram stain and culture, continue therapy for community-acquired pneumonia and Covid 19 pneumonia and follow clinical course closely 05/07/2020, patient seen eval examined overall respiratory status remains compromised, patient is on 15 L high flow oxygen, saturation is mid 80s, will switch to aerosolized oxygen continue supportive care instructed to continue deep breathing exercises incentive spirometry will add broad-spectrum antibiotics as well This is a pleasant 79-year-old female who was diagnosed as covert infection about 7 days ago, progressive increased shortness of breath has been noted in the last 2 days was hypoxic unable to complete full sentences, came into the hospital for further evaluation and intervention and treatment, patient has significant history of depression dyslipidemia hypertension hypertensive cardiovascular disease, hypothyroidism, angina, type 2 diabetes mellitus, in emergency department she was noted to have a low-grade fever she was tachypneic tachycardic, wiring 2 L supplemental oxygen, patient underwent chest x-ray and computed tomography scan of the chest, patient admitted into the hospital with supplemental oxygen IV steroids and REMdesivir therapy her chest x-ray assistive of left-sided pneumonia and small left-sided pleural effusion bilateral interstitial infiltrate also involving the right side in patchy fashion, ED of chest failed to show any pulmonary embolism however confirmed similar findings, heart covid 19 came back positive Objective - Vital Signs Vital signs: Vital Signs Temp 98.2 F 05/08/20 11:00 Pulse 67 05/08/20 11:00 Resp 24 05/08/20 11:00 BP 117/59 05/08/20 11:00 Pulse Ox 93 L 05/08/20 12:24 Intake & Output 05/07/20 05/08/20 05/08/20 18:59 06:59 18:59 Output Total 400 Balance -400 Output: Urine 400 Other: Voiding Method Bedside Commode Bedside Commode # Voids 5 2 - Exam - Constitutional General appearance: average body habitus, cooperative, disheveled - EENT Eyes: PERRLA ENT: hearing grossly normal Ears: bilateral: normal - Neck Neck: normal ROM Carotids: bilateral: upstroke normal Thyroid: bilateral: normal size - Respiratory Respiratory: bilateral: diminished - Cardiovascular Rhythm: regular Heart sounds: normal: S1, S2 - Gastrointestinal General gastrointestinal: decreased bowel sounds - Integumentary Integumentary: normal turgor - Neurologic Neurologic: CNII-XII intact - Musculoskeletal Musculoskeletal: gait normal, generalized weakness, strength equal bilaterally - Psychiatric Psychiatric: A&O x's 3, appropriate affect, intact judgment & insight - Labs CBC & Chem 7: 05/07/20 08:17 05/07/20 08:17 Labs: Abnormal Lab Results - Last 24 Hours (Table) 05/07/20 05/07/20 05/08/20 Range/Units 16:59 20:41 06:59 POC Glucose (mg/dL) 340 H 261 H 202 H (75-99) mg/dL 05/08/20 Range/Units 11:09 POC Glucose (mg/dL) 225 H (75-99) mg/dL Microbiology - Last 24 Hours (Table) 05/05/20 11:20 Blood Culture - Preliminary Blood No Growth after 48 hours Assessment and Plan Assessment: Acute hypoxic respiratory failure Covid 19 pneumonia Community-acquired pneumonia/secondary bacterial pneumonia Uncontrolled diabetes Hypertension hypertensive cardiovascular disease Hypothyroidism Lipidemia Generalized anxiety disorder Plan: Add IV Rocephin Sputum for Gram stain and culture Supplemental oxygen Deep breathing exercise incentive spirometry Prone positioning Decadron RAMdesivir for 5 days Replacement of electrolytes and minerals vitamins including vitamin C, zinc, D Continue home medications Recommendations pending plan of care as per clinical response of the patient Time with Patient: Greater than 30
[2020-05-08] MEDS: REMDESIVIR 100 MG in SODIUM CHLORIDE 0.9% 250 ML IVPB SCH (16:48)
[2020-05-08] MEDS: CHOLECALCIFEROL 1,000 UNIT TAB PO SCH (16:49)
[2020-05-08] MEDS: MULTIVITAMINS, THERA 1 EACH TAB PO SCH (16:49)
[2020-05-08] MEDS: ZINC SULFATE 220 MG CAP PO SCH (16:50)
[2020-05-08] MEDS: ASCORBIC ACID 500 MG TAB PO SCH (16:50)
[2020-05-08 17:03] LABS: Glucose,Whole Blood 279 mg/dL (75-99)
[2020-05-08 20:04] LABS: Glucose,Whole Blood 269 mg/dL (75-99)
[2020-05-08] MEDS: ATORVASTATIN 40 MG TAB PO SCH (21:32)
[2020-05-08] MEDS: LATANOPROST 0.005% OPHTH DROPS 2.5 ML BTL BOTH EYES SCH (21:48)
[2020-05-09] MEDS: ALBUTEROL HFA INHALER INHALATION SCH ×4 (03:55→19:46)
[2020-05-09] MEDS: LEVOTHYROXINE 50 MCG TAB PO SCH (05:31)
[2020-05-09 07:12] LABS: Glucose,Whole Blood 152 mg/dL (75-99)
[2020-05-09] MEDS: metFORMIN 500 MG TAB PO SCH (07:43)
[2020-05-09] MEDS: INSULIN ASPART (NovoLOG) 100 UNIT/ML VIAL SQ SCH ×4 (08:52→21:25)
[2020-05-09] MEDS: DEXAMETHASONE SOD PHOSPHATE 10 MG/ML 1 ML VIAL IV SCH (08:52)
[2020-05-09] MEDS: ENOXAPARIN 30 MG/0.3 ML SYRINGE SQ SCH ×2 (08:55→21:25)
[2020-05-09] MEDS: FLUoxetine HCL 20 MG CAP PO SCH (08:55)
[2020-05-09] MEDS: DILTIAZEM CD 240 MG CAP.ER.24H PO SCH (08:56)
[2020-05-09 11:25] LABS: Glucose,Whole Blood 172 mg/dL (75-99)
[2020-05-09] MEDS: SODIUM CHLORIDE 0.9% 1,000 ML IV SCH (12:15)
--- NOTE | 2020-05-09 15:49 | P.PN ---
Subjective Progress Note Date: 05/09/20 Principal diagnosis: Acute hypoxic respiratory failure Covid 19 pneumonia Uncontrolled diabetes Hypertension hypertensive cardiovascular disease Hypothyroidism Lipidemia Generalized anxiety disorder 05/09/2020, patient seen eval reexamined, remains on 15 L 60% oxygen, shortness of breath is there but oxygen saturation improved to 9596% less short of breath on activity, 05/08/2020, patient seen eval examined during the rounds currently patient is on 20 L, 50% oxygen, saturation is mid 90s his sputum is being sent for Gram stain and culture, continue therapy for community-acquired pneumonia and Covid 19 pneumonia and follow clinical course closely 05/07/2020, patient seen eval examined overall respiratory status remains compromised, patient is on 15 L high flow oxygen, saturation is mid 80s, will switch to aerosolized oxygen continue supportive care instructed to continue deep breathing exercises incentive spirometry will add broad-spectrum antibiotics as well This is a pleasant 79-year-old female who was diagnosed as covert infection about 7 days ago, progressive increased shortness of breath has been noted in the last 2 days was hypoxic unable to complete full sentences, came into the hospital for further evaluation and intervention and treatment, patient has significant history of depression dyslipidemia hypertension hypertensive cardiovascular disease, hypothyroidism, angina, type 2 diabetes mellitus, in emergency department she was noted to have a low-grade fever she was tachypneic tachycardic, wiring 2 L supplemental oxygen, patient underwent chest x-ray and computed tomography scan of the chest, patient admitted into the hospital with supplemental oxygen IV steroids and REMdesivir therapy her chest x-ray assistive of left-sided pneumonia and small left-sided pleural effusion bilateral interstitial infiltrate also involving the right side in patchy fashion, ED of chest failed to show any pulmonary embolism however confirmed similar findings, heart covid 19 came back positive Objective - Vital Signs Vital signs: Vital Signs Temp 98.1 F 05/09/20 11:00 Pulse 64 05/09/20 11:00 Resp 22 05/09/20 11:00 BP 135/72 05/09/20 11:00 Pulse Ox 91 L 05/09/20 15:44 Intake & Output 05/08/20 05/09/20 05/09/20 18:59 06:59 18:59 Intake Total 350 Output Total 1999 1999 Balance -1999 350 -1999 Intake: Oral 350 Output: Urine 1999 1999 Other: Voiding Method Bedside Commode Bedside Commode # Voids 3 # Bowel Movements 1 - Exam - Constitutional General appearance: average body habitus, cooperative, disheveled - EENT Eyes: PERRLA ENT: hearing grossly normal Ears: bilateral: normal - Neck Neck: normal ROM Carotids: bilateral: upstroke normal Thyroid: bilateral: normal size - Respiratory Respiratory: bilateral: diminished - Cardiovascular Rhythm: regular Heart sounds: normal: S1, S2 - Gastrointestinal General gastrointestinal: decreased bowel sounds - Integumentary Integumentary: normal turgor - Neurologic Neurologic: CNII-XII intact - Musculoskeletal Musculoskeletal: gait normal, generalized weakness, strength equal bilaterally - Psychiatric Psychiatric: A&O x's 3, appropriate affect, intact judgment & insight - Labs CBC & Chem 7: 05/07/20 08:17 05/07/20 08:17 Labs: Abnormal Lab Results - Last 24 Hours (Table) 05/07/20 05/08/20 05/08/20 Range/Units 08:17 16:53 19:51 POC Glucose (mg/dL) 279 H 269 H (75-99) mg/dL Hemoglobin A1c 7.9 H (4.0-6.0) % 05/09/20 05/09/20 Range/Units 07:10 11:23 POC Glucose (mg/dL) 152 H 172 H (75-99) mg/dL Hemoglobin A1c (4.0-6.0) % Microbiology - Last 24 Hours (Table) 05/05/20 11:20 Blood Culture - Preliminary Blood No Growth after 96 hours Assessment and Plan Assessment: Acute hypoxic respiratory failure Covid 19 pneumonia Community-acquired pneumonia/secondary bacterial pneumonia Uncontrolled diabetes Hypertension hypertensive cardiovascular disease Hypothyroidism Lipidemia Generalized anxiety disorder Plan: Add IV Rocephin Sputum for Gram stain and culture Supplemental oxygen Deep breathing exercise incentive spirometry Prone positioning Decadron RAMdesivir for 5 days Replacement of electrolytes and minerals vitamins including vitamin C, zinc, D Continue home medications Recommendations pending plan of care as per clinical response of the patient Time with Patient: Greater than 30
[2020-05-09] MEDS: REMDESIVIR 100 MG in SODIUM CHLORIDE 0.9% 250 ML IVPB SCH (16:44)
[2020-05-09] MEDS: ASCORBIC ACID 500 MG TAB PO SCH (16:45)
[2020-05-09] MEDS: ZINC SULFATE 220 MG CAP PO SCH (16:45)
[2020-05-09] MEDS: MULTIVITAMINS, THERA 1 EACH TAB PO SCH (16:45)
[2020-05-09] MEDS: CHOLECALCIFEROL 1,000 UNIT TAB PO SCH (16:45)
[2020-05-09 17:01] LABS: Glucose,Whole Blood 259 mg/dL (75-99)
[2020-05-09 21:14] LABS: Glucose,Whole Blood 175 mg/dL (75-99)
[2020-05-09] MEDS: LATANOPROST 0.005% OPHTH DROPS 2.5 ML BTL BOTH EYES SCH (21:24)
[2020-05-09] MEDS: ATORVASTATIN 40 MG TAB PO SCH (21:25)
[2020-05-10] MEDS: LEVOTHYROXINE 50 MCG TAB PO SCH (05:54)
[2020-05-10] MEDS: ALBUTEROL HFA INHALER INHALATION SCH ×3 (07:46→19:08)
[2020-05-10 07:57] LABS: Glucose,Whole Blood 206 mg/dL (75-99)
[2020-05-10] MEDS: FLUoxetine HCL 20 MG CAP PO SCH (08:37)
[2020-05-10] MEDS: INSULIN ASPART (NovoLOG) 100 UNIT/ML VIAL SQ SCH ×4 (08:37→21:13)
[2020-05-10] MEDS: DEXAMETHASONE SOD PHOSPHATE 10 MG/ML 1 ML VIAL IV SCH (08:37)
[2020-05-10] MEDS: DILTIAZEM CD 240 MG CAP.ER.24H PO SCH (08:37)
[2020-05-10] MEDS: ENOXAPARIN 30 MG/0.3 ML SYRINGE SQ SCH ×2 (08:37→21:12)
[2020-05-10] MEDS: metFORMIN 500 MG TAB PO SCH (08:47)
[2020-05-10] MEDS: SODIUM CHLORIDE 0.9% 1,000 ML IV SCH (11:31)
[2020-05-10 11:42] LABS: Glucose,Whole Blood 214 mg/dL (75-99)
--- NOTE | 2020-05-10 15:28 | P.PN ---
Subjective Progress Note Date: 05/10/20 Principal diagnosis: Acute hypoxic respiratory failure Covid 19 pneumonia Uncontrolled diabetes Hypertension hypertensive cardiovascular disease Hypothyroidism Lipidemia Generalized anxiety disorder 05/10/2020, patient has been on high flow aerosolized oxygen with air wall, she has been prone doing incentive spirometry, denies any cough or sputum production, she is afebrile, saturation is 93%, blood cultures no growth sputum culture wide variety of organism rare however are growing final ID pending, on third generation cephalosporin along with IV Decadron and anticoagulation with Lovenox, 05/09/2020, patient seen eval reexamined, remains on 15 L 60% oxygen, shortness of breath is there but oxygen saturation improved to 9596% less short of breath on activity, 05/08/2020, patient seen eval examined during the rounds currently patient is on 20 L, 50% oxygen, saturation is mid 90s his sputum is being sent for Gram stain and culture, continue therapy for community-acquired pneumonia and Covid 19 pneumonia and follow clinical course closely 05/07/2020, patient seen eval examined overall respiratory status remains compromised, patient is on 15 L high flow oxygen, saturation is mid 80s, will switch to aerosolized oxygen continue supportive care instructed to continue deep breathing exercises incentive spirometry will add broad-spectrum antibiotics as well This is a pleasant 79-year-old female who was diagnosed as covert infection about 7 days ago, progressive increased shortness of breath has been noted in the last 2 days was hypoxic unable to complete full sentences, came into the hospital for further evaluation and intervention and treatment, patient has significant history of depression dyslipidemia hypertension hypertensive cardiovascular disease, hypothyroidism, angina, type 2 diabetes mellitus, in emergency department she was noted to have a low-grade fever she was tachypneic tachycardic, wiring 2 L supplemental oxygen, patient underwent chest x-ray and computed tomography scan of the chest, patient admitted into the hospital with supplemental oxygen IV steroids and REMdesivir therapy her chest x-ray assistive of left-sided pneumonia and small left-sided pleural effusion bilateral interstitial infiltrate also involving the right side in patchy fashion, ED of chest failed to show any pulmonary embolism however confirmed similar findings, heart covid 19 came back positive Objective - Vital Signs Vital signs: Vital Signs Temp 98.0 F 05/10/20 11:00 Pulse 80 05/10/20 11:00 Resp 18 05/10/20 11:00 BP 153/70 05/10/20 11:00 Pulse Ox 93 L 05/10/20 15:12 Intake & Output 05/09/20 05/10/20 05/10/20 18:59 06:59 18:59 Intake Total 500 290 Output Total 1999 Balance -1500 290 Intake: Intake, IV Titration 500 Amount Remdesivir 100 mg In 250 Sodium Chloride 0.9% 250 ml @ 250 mls/hr IVPB DAILY@1700 [facility] Rx#: [id number] Sodium Chloride 0.9% 1, 200 000 ml @ 20 mls/hr IV . Q24H [facility] Rx#:[id number] cefTRIAXone 1 gm In 50 Sodium Chloride 0.9% 50 ml @ 100 mls/hr IVPB Q24HR [facility] Rx#:[id number] Oral 290 Output: Urine 2000 Other: Voiding Method Bedside Commode Bedside Commode # Voids 2 2 # Bowel Movements 1 - Exam - Constitutional General appearance: average body habitus, cooperative, disheveled - EENT Eyes: PERRLA ENT: hearing grossly normal Ears: bilateral: normal - Neck Neck: normal ROM Carotids: bilateral: upstroke normal Thyroid: bilateral: normal size - Respiratory Respiratory: bilateral: diminished - Cardiovascular Rhythm: regular Heart sounds: normal: S1, S2 - Gastrointestinal General gastrointestinal: decreased bowel sounds - Integumentary Integumentary: normal turgor - Neurologic Neurologic: CNII-XII intact - Musculoskeletal Musculoskeletal: gait normal, generalized weakness, strength equal bilaterally - Psychiatric Psychiatric: A&O x's 3, appropriate affect, intact judgment & insight - Labs CBC & Chem 7: 05/07/20 08:17 05/07/20 08:17 Labs: Abnormal Lab Results - Last 24 Hours (Table) 05/09/20 05/09/20 05/10/20 Range/Units 17:00 20:59 07:52 POC Glucose (mg/dL) 259 H 175 H 206 H (75-99) mg/dL 05/10/20 Range/Units 11:39 POC Glucose (mg/dL) 214 H (75-99) mg/dL Microbiology - Last 24 Hours (Table) 05/05/20 11:20 Blood Culture - Preliminary Blood No Growth after 120 hours 05/09/20 08:30 Gram Stain - Preliminary Sputum Sputum Culture - Preliminary Assessment and Plan Assessment: Acute hypoxic respiratory failure Covid 19 pneumonia Community-acquired pneumonia/secondary bacterial pneumonia Uncontrolled diabetes Hypertension hypertensive cardiovascular disease Hypothyroidism Lipidemia Generalized anxiety disorder Plan: Continue IV Rocephin Follow-up Sputum for Gram stain and culture Supplemental oxygen Deep breathing exercise incentive spirometry Prone positioning Decadron RAMdesivir for 5 days Replacement of electrolytes and minerals vitamins including vitamin C, zinc, D Continue home medications Recommendations pending plan of care as per clinical response of the patient Time with Patient: Greater than 30
[2020-05-10 17:34] LABS: Glucose,Whole Blood 462 mg/dL (75-99)
[2020-05-10] MEDS: ZINC SULFATE 220 MG CAP PO SCH (17:55)
[2020-05-10] MEDS: MULTIVITAMINS, THERA 1 EACH TAB PO SCH (17:55)
[2020-05-10] MEDS: ASCORBIC ACID 500 MG TAB PO SCH (17:55)
[2020-05-10] MEDS: CHOLECALCIFEROL 1,000 UNIT TAB PO SCH (17:56)
[2020-05-10] MEDS: REMDESIVIR 100 MG in SODIUM CHLORIDE 0.9% 250 ML IVPB SCH (17:56)
[2020-05-10] MEDS ORDERED: INSULIN ASPART (NovoLOG) 100 UNIT/ML VIAL SQ ONE (18:00)
[2020-05-10 21:03] LABS: Glucose,Whole Blood 337 mg/dL (75-99)
[2020-05-10] MEDS: ATORVASTATIN 40 MG TAB PO SCH (21:12)
[2020-05-10] MEDS: LATANOPROST 0.005% OPHTH DROPS 2.5 ML BTL BOTH EYES SCH (21:13)
[2020-05-11] MEDS: LEVOTHYROXINE 50 MCG TAB PO SCH (06:22)
[2020-05-11 07:27] LABS: Glucose,Whole Blood 153 mg/dL (75-99)
[2020-05-11] MEDS: ALBUTEROL HFA INHALER INHALATION SCH ×3 (07:44→19:25)
[2020-05-11] MEDS: FLUoxetine HCL 20 MG CAP PO SCH (08:00)
[2020-05-11] MEDS: DILTIAZEM CD 240 MG CAP.ER.24H PO SCH (08:00)
[2020-05-11] MEDS: DEXAMETHASONE SOD PHOSPHATE 10 MG/ML 1 ML VIAL IV SCH (08:00)
[2020-05-11] MEDS: ENOXAPARIN 30 MG/0.3 ML SYRINGE SQ SCH ×2 (08:02→23:11)
[2020-05-11] MEDS: INSULIN ASPART (NovoLOG) 100 UNIT/ML VIAL SQ SCH ×4 (08:03→23:11)
[2020-05-11] MEDS: metFORMIN 500 MG TAB PO SCH (08:18)
[2020-05-11] MEDS: ACETAMINOPHEN TAB 325 MG TAB PO PRN (08:46)
--- NOTE | 2020-05-11 12:01 | P.PN ---
Subjective Progress Note Date: 05/11/20 Principal diagnosis: Acute hypoxic respiratory failure Covid 19 pneumonia Uncontrolled diabetes Hypertension hypertensive cardiovascular disease Hypothyroidism Lipidemia Generalized anxiety disorder 05/10/2020, patient seen eval examined during the rounds labs reviewed med [facility] reviewed care plan discussed, respiratory status remained stable, denies any chest pain breathing comfortably, remains on high flow aerosolized oxygen with airvo, oxygen saturation is 97%, remains her usual therapy for Covid 19 pneumonia 05/10/2020, patient has been on high flow aerosolized oxygen with air wall, she has been prone doing incentive spirometry, denies any cough or sputum pr oduction, she is afebrile, saturation is 93%, blood cultures no growth sputum culture wide variety of organism rare however are growing final ID pending, on third generation cephalosporin along with IV Decadron and anticoagulation with Lovenox, 05/09/2020, patient seen eval reexamined, remains on 15 L 60% oxygen, shortness of breath is there but oxygen saturation improved to 9596% less short of breath on activity, 05/08/2020, patient seen eval examined during the rounds currently patient is on 20 L, 50% oxygen, saturation is mid 90s his sputum is being sent for Gram stain and culture, continue therapy for community-acquired pneumonia and Covid 19 pneumonia and follow clinical course closely 05/07/2020, patient seen eval examined overall respiratory status remains compromised, patient is on 15 L high flow oxygen, saturation is mid 80s, will switch to aerosolized oxygen continue supportive care instructed to continue deep breathing exercises incentive spirometry will add broad-spectrum antibiotics as well This is a pleasant 79-year-old female who was diagnosed as covert infection about 7 days ago, progressive increased shortness of breath has been noted in the last 2 days was hypoxic unable to complete full sentences, came into the hospital for further evaluation and intervention and treatment, patient has significant history of depression dyslipidemia hypertension hypertensive cardiovascular disease, hypothyroidism, angina, type 2 diabetes mellitus, in emergency department she was noted to have a low-grade fever she was tachypneic tachycardic, wiring 2 L supplemental oxygen, patient underwent chest x-ray and computed tomography scan of the chest, patient admitted into the hospital with supplemental oxygen IV steroids and REMdesivir therapy her chest x-ray assistive of left-sided pneumonia and small left-sided pleural effusion bilateral interstitial infiltrate also involving the right side in patchy fashion, ED of chest failed to show any pulmonary embolism however confirmed similar findings, heart covid 19 came back positive Objective - Vital Signs Vital signs: Vital Signs Temp 97.3 F L 05/11/20 04:30 Pulse 64 05/11/20 04:30 Resp 16 05/11/20 04:30 BP 104/59 05/11/20 04:30 Pulse Ox 95 05/11/20 04:30 Intake & Output 05/10/20 05/11/20 05/11/20 18:59 06:59 18:59 Intake Total 1800 80 Balance 1800 80 Intake: Intake, IV Titration 80 Amount Sodium Chloride 0.9% 1, 80 000 ml @ 20 mls/hr IV . Q24H [facility] Rx#:[id number] Oral 1800 Other: Voiding Method Bedside Commode Bedside Commode # Voids 4 4 # Bowel Movements 0 - Exam - Constitutional General appearance: average body habitus, cooperative, disheveled - EENT Eyes: PERRLA ENT: hearing grossly normal Ears: bilateral: normal - Neck Neck: normal ROM Carotids: bilateral: upstroke normal Thyroid: bilateral: normal size - Respiratory Respiratory: bilateral: diminished - Cardiovascular Rhythm: regular Heart sounds: normal: S1, S2 - Gastrointestinal General gastrointestinal: decreased bowel sounds - Integumentary Integumentary: normal turgor - Neurologic Neurologic: CNII-XII intact - Musculoskeletal Musculoskeletal: gait normal, generalized weakness, strength equal bilaterally - Psychiatric Psychiatric: A&O x's 3, appropriate affect, intact judgment & insight - Labs CBC & Chem 7: 05/07/20 08:17 05/07/20 08:17 Labs: Abnormal Lab Results - Last 24 Hours (Table) 05/10/20 05/10/20 05/11/20 Range/Units 17:29 20:54 07:24 POC Glucose (mg/dL) 462 H 337 H 153 H (75-99) mg/dL Microbiology - Last 24 Hours (Table) 05/09/20 08:30 Gram Stain - Final Sputum Sputum Culture - Final Ariane albicans 05/05/20 11:20 Blood Culture - Preliminary Blood No Growth after 120 hours Assessment and Plan Assessment: Acute hypoxic respiratory failure Covid 19 pneumonia Community-acquired pneumonia/secondary bacterial pneumonia Uncontrolled diabetes Hypertension hypertensive cardiovascular disease Hypothyroidism Lipidemia Generalized anxiety disorder Plan: Continue IV Rocephin Follow-up Sputum for Gram stain and culture no growth has been noted some ariane likely contamination isolated Supplemental oxygen Deep breathing exercise incentive spirometry Prone positioning Decadron RAMdesivir for 5 days Replacement of electrolytes and minerals vitamins including vitamin C, zinc, D Continue home medications Recommendations pending plan of care as per clinical response of the patient Time with Patient: Greater than 30
[2020-05-11] MEDS: SODIUM CHLORIDE 0.9% 1,000 ML IV SCH (12:12)
[2020-05-11 12:57] LABS: Glucose,Whole Blood 183 mg/dL (75-99)
[2020-05-11] MEDS: CHOLECALCIFEROL 1,000 UNIT TAB PO SCH (17:17)
[2020-05-11] MEDS: MULTIVITAMINS, THERA 1 EACH TAB PO SCH (17:17)
[2020-05-11] MEDS: ZINC SULFATE 220 MG CAP PO SCH (17:17)
[2020-05-11] MEDS: ASCORBIC ACID 500 MG TAB PO SCH (17:17)
[2020-05-11 17:19] LABS: Glucose,Whole Blood 284 mg/dL (75-99)
[2020-05-11 21:08] LABS: Glucose,Whole Blood 293 mg/dL (75-99)
[2020-05-11] MEDS: ALPRAZolam 0.25 MG TAB PO PRN (23:10)
[2020-05-11] MEDS: ATORVASTATIN 40 MG TAB PO SCH (23:11)
[2020-05-11] MEDS: LATANOPROST 0.005% OPHTH DROPS 2.5 ML BTL BOTH EYES SCH (23:14)
[2020-05-12] MEDS: LEVOTHYROXINE 50 MCG TAB PO SCH (05:13)
[2020-05-12 07:31] LABS: Glucose,Whole Blood 181 mg/dL (75-99)
[2020-05-12] MEDS: ALBUTEROL HFA INHALER INHALATION SCH ×3 (08:18→19:05)
[2020-05-12] MEDS: INSULIN ASPART (NovoLOG) 100 UNIT/ML VIAL SQ SCH ×4 (09:10→20:50)
[2020-05-12] MEDS: DILTIAZEM CD 240 MG CAP.ER.24H PO SCH (09:58)
[2020-05-12] MEDS: metFORMIN 500 MG TAB PO SCH (09:58)
[2020-05-12] MEDS: ENOXAPARIN 30 MG/0.3 ML SYRINGE SQ SCH ×2 (09:58→20:50)
[2020-05-12] MEDS: FLUoxetine HCL 20 MG CAP PO SCH (09:58)
[2020-05-12] MEDS: DEXAMETHASONE SOD PHOSPHATE 10 MG/ML 1 ML VIAL IV SCH (09:58)
--- NOTE | 2020-05-12 10:11 | P.PN ---
Subjective Progress Note Date: 05/12/20 Principal diagnosis: Acute hypoxic respiratory failure Covid 19 pneumonia Uncontrolled diabetes Hypertension hypertensive cardiovascular disease Hypothyroidism Lipidemia Generalized anxiety disorder 05/12/2020, patient seen eval examined patient remains on air wall aerosolized high flow oxygen, oxygen percent is slowly being titrated down more awake and alert sitting upright on the bed short of breath on exertion, oxygen saturation 91%, getting usual therapy for Covid 19 pneumonia 05/11/2020, patient seen eval examined during the rounds labs reviewed medications reviewed care plan discussed, respiratory status remained stable, denies any chest pain breathing comfortably, remains on high flow aerosolized oxygen with airvo, oxygen saturation is 97%, remains her usual therapy for Covid 19 pneumonia 05/10/2020, patient has been on high flow aerosolized oxygen with air wall, she has been prone doing incentive spirometry, denies any cough or sputum production, she is afebrile, saturation is 93%, blood cultures no growth sputum culture wide variety of organism rare however are growing final ID pending, on third generation cephalosporin along with IV Decadron and anticoagulation with Lovenox, 05/09/2020, patient seen eval reexamined, remains on 15 L 60% oxygen, shortness of breath is there but oxygen saturation improved to 9596% less short of breath on activity, 05/08/2020, patient seen eval examined during the rounds currently patient is on 20 L, 50% oxygen, saturation is mid 90s his sputum is being sent for Gram stain and culture, continue therapy for community-acquired pneumonia and Covid 19 pneumonia and follow clinical course closely 05/07/2020, patient seen eval examined overall respiratory status remains compromised, patient is on 15 L high flow oxygen, saturation is mid 80s, will switch to aerosolized oxygen continue supportive care instructed to continue deep breathing exercises incentive spirometry will add broad-spectrum antibiotics as well This is a pleasant 79-year-old female who was diagnosed as covert infection about 7 days ago, progressive increased shortness of breath has been noted in the last 2 days was hypoxic unable to complete full sentences, came into the hospital for further evaluation and intervention and treatment, patient has significant history of depression dyslipidemia hypertension hypertensive ca rdiovascular disease, hypothyroidism, angina, type 2 diabetes mellitus, in emergency department she was noted to have a low-grade fever she was tachypneic tachycardic, wiring 2 L supplemental oxygen, patient underwent chest x-ray and computed tomography scan of the chest, patient admitted into the hospital with supplemental oxygen IV steroids and REMdesivir therapy her chest x-ray assistive of left-sided pneumonia and small left-sided pleural effusion bilateral interstitial infiltrate also involving the right side in patchy fashion, ED of chest failed to show any pulmonary embolism however confirmed similar findings, heart covid 19 came back positive Objective - Vital Signs Vital signs: Vital Signs Temp 97.5 F L 05/12/20 05:00 Pulse 57 L 05/12/20 05:00 Resp 18 05/12/20 05:00 BP 148/58 05/12/20 05:00 Pulse Ox 91 L 05/12/20 05:00 Intake & Output 05/11/20 05/12/20 05/12/20 18:59 06:59 18:59 Intake Total 960 Balance 960 Intake: Intake, IV Titration 160 Amount Sodium Chloride 0.9% 1, 160 000 ml @ 20 mls/hr IV . Q24H [facility] Rx#:[id number] Oral 800 Other: Voiding Method Bedside Commode Bedside Commode # Voids 3 # Bowel Movements 1 - Exam - Constitutional General appearance: average body habitus, cooperative, disheveled - EENT Eyes: PERRLA ENT: hearing grossly normal Ears: bilateral: normal - Neck Neck: normal ROM Carotids: bilateral: upstroke normal Thyroid: bilateral: normal size - Respiratory Respiratory: bilateral: diminished - Cardiovascular Rhythm: regular Heart sounds: normal: S1, S2 - Gastrointestinal General gastrointestinal: decreased bowel sounds - Integumentary Integumentary: normal turgor - Neurologic Neurologic: CNII-XII intact - Musculoskeletal Musculoskeletal: gait normal, generalized weakness, strength equal bilaterally - Psychiatric Psychiatric: A&O x's 3, appropriate affect, intact judgment & insight - Labs CBC & Chem 7: 05/07/20 08:17 05/07/20 08:17 Labs: Abnormal Lab Results - Last 24 Hours (Table) 05/11/20 05/11/20 05/11/20 Range/Units 12:39 17:13 21:00 POC Glucose (mg/dL) 183 H 284 H 293 H (75-99) mg/dL 05/12/20 Range/Units 07:28 POC Glucose (mg/dL) 181 H (75-99) mg/dL Microbiology - Last 24 Hours (Table) 05/05/20 11:20 Blood Culture - Final Blood No Growth after 144 hours 05/09/20 08:30 Gram Stain - Final Sputum Sputum Culture - Final Ariane albicans Assessment and Plan Assessment: Acute hypoxic respiratory failure Covid 19 pneumonia Community-acquired pneumonia/secondary bacterial pneumonia Uncontrolled diabetes Hypertension hypertensive cardiovascular disease Hypothyroidism Lipidemia Generalized anxiety disorder Plan: Continue IV Rocephin Supplemental oxygen, titrated down as tolerated Deep breathing exercise incentive spirometry Prone positioning Decadron RAMdesivir for 5 days Replacement of electrolytes and minerals vitamins including vitamin C, zinc, D Continue home medications Recommendations pending plan of care as per clinical response of the patient
[2020-05-12 11:37] LABS: Glucose,Whole Blood 148 mg/dL (75-99)
[2020-05-12] MEDS: SODIUM CHLORIDE 0.9% 1,000 ML IV SCH (13:30)
[2020-05-12] MEDS: CHOLECALCIFEROL 1,000 UNIT TAB PO SCH (16:09)
[2020-05-12] MEDS: MULTIVITAMINS, THERA 1 EACH TAB PO SCH (16:09)
[2020-05-12] MEDS: ASCORBIC ACID 500 MG TAB PO SCH (16:09)
[2020-05-12] MEDS: ZINC SULFATE 220 MG CAP PO SCH (16:09)
[2020-05-12 17:22] LABS: Glucose,Whole Blood 262 mg/dL (75-99)
[2020-05-12 20:13] LABS: Glucose,Whole Blood 336 mg/dL (75-99)
[2020-05-12] MEDS: ATORVASTATIN 40 MG TAB PO SCH (20:50)
[2020-05-12] MEDS: LATANOPROST 0.005% OPHTH DROPS 2.5 ML BTL BOTH EYES SCH (20:51)
[2020-05-13] MEDS: LEVOTHYROXINE 50 MCG TAB PO SCH (06:03)
[2020-05-13 07:11] LABS: Glucose,Whole Blood 188 mg/dL (75-99)
[2020-05-13] MEDS: ALBUTEROL HFA INHALER INHALATION SCH ×3 (07:32→19:51)
[2020-05-13] MEDS: ENOXAPARIN 30 MG/0.3 ML SYRINGE SQ SCH ×2 (08:06→20:47)
[2020-05-13] MEDS: INSULIN ASPART (NovoLOG) 100 UNIT/ML VIAL SQ SCH ×4 (08:06→20:47)
[2020-05-13] MEDS: FLUoxetine HCL 20 MG CAP PO SCH (08:07)
[2020-05-13] MEDS: DEXAMETHASONE SOD PHOSPHATE 10 MG/ML 1 ML VIAL IV SCH (08:07)
[2020-05-13] MEDS: metFORMIN 500 MG TAB PO SCH (08:08)
[2020-05-13] MEDS: DILTIAZEM CD 240 MG CAP.ER.24H PO SCH (08:09)
[2020-05-13 10:44] LABS: Glucose,Whole Blood 216 mg/dL (75-99)
[2020-05-13] MEDS: SODIUM CHLORIDE 0.9% 1,000 ML IV SCH (12:48)
[2020-05-13] MEDS: ACETAMINOPHEN TAB 325 MG TAB PO PRN ×2 (14:56→20:48)
--- NOTE | 2020-05-13 16:34 | P.PN ---
Subjective Progress Note Date: 05/13/20 Principal diagnosis: Acute hypoxic respiratory failure Covid 19 pneumonia Uncontrolled diabetes Hypertension hypertensive cardiovascular disease Hypothyroidism Lipidemia Generalized anxiety disorder 05/13/2020, patient seen eval examined during the rounds labs reviewed med ications reviewed care plan discussed, respiratory status remained marginal but she is on 35 L now and aerosolized oxygen, oxygen saturation is 96%, breathing comfortably less this neck on activity and exertion 05/12/2020, patient seen eval examined patient remains on air wall aerosolized high flow oxygen, oxygen percent is slowly being titrated down more awake and alert sitting upright on the bed short of breath on exertion, oxygen saturation 91%, getting usual therapy for Covid 19 pneumonia 05/11/2020, patient seen eval examined during the rounds labs reviewed medications reviewed care plan discussed, respiratory status remained stable, denies any chest pain breathing comfortably, remains on high flow aerosolized oxygen with airvo, oxygen saturation is 97%, remains her usual therapy for Covid 19 pneumonia 05/10/2020, patient has been on high flow aerosolized oxygen with air wall, she has been prone doing incentive spirometry, denies any cough or sputum production, she is afebrile, saturation is 93%, blood cultures no growth sputum culture wide variety of organism rare however are growing final ID pending, on third generation cephalosporin along with IV Decadron and anticoagulation with Lovenox, 05/09/2020, patient seen eval reexamined, remains on 15 L 60% oxygen, shortness of breath is there but oxygen saturation improved to 9596% less short of breath on activity, 05/08/2020, patient seen eval examined during the rounds currently patient is on 20 L, 50% oxygen, saturation is mid 90s his sputum is being sent for Gram stain and culture, continue therapy for community-acquired pneumonia and Covid 19 pneumonia and follow clinical course closely 05/07/2020, patient seen eval examined overall respiratory status remains compromised, patient is on 15 L high flow oxygen, saturation is mid 80s, will switch to aerosolized oxygen continue supportive care instructed to continue deep breathing exercises incentive spirometry will add broad-spectrum antibiotics as well This is a pleasant 79-year-old female who was diagnosed as covert infection about 7 days ago, progressive increased shortness of breath has been noted in the last 2 days was hypoxic unable to complete full sentences, came into the hospital for further evaluation and intervention and treatment, patient has significant history of depression dyslipidemia hypertension hypertensive cardiovascular disease, hypothyroidism, angina, type 2 diabetes mellitus, in emergency department she was noted to have a low-grade fever she was tachypneic tachycardic, wiring 2 L supplemental oxygen, patient underwent chest x-ray and computed tomography scan of the chest, patient admitted into the hospital with s upplemental oxygen IV steroids and REMdesivir therapy her chest x-ray assistive of left-sided pneumonia and small left-sided pleural effusion bilateral interstitial infiltrate also involving the right side in patchy fashion, ED of chest failed to show any pulmonary embolism however confirmed similar findings, heart covid 19 came back positive Objective - Vital Signs Vital signs: Vital Signs Temp 97.9 F 05/13/20 10:58 Pulse 72 05/13/20 10:58 Resp 18 05/13/20 10:58 BP 157/74 05/13/20 10:58 Pulse Ox 96 05/13/20 15:24 Intake & Output 05/12/20 05/13/20 05/13/20 18:59 06:59 18:59 Intake Total 450 160 Balance 450 160 Weight 70.307 kg Intake: Intake, IV Titration 450 160 Amount Sodium Chloride 0.9% 1, 450 160 000 ml @ 20 mls/hr IV . Q24H [facility] Rx#:[id number] Other: Voiding Method Bedside Commode Bedside Commode Bedside Commode - Exam - Constitutional General appearance: average body habitus, cooperative, disheveled - EENT Eyes: PERRLA ENT: hearing grossly normal Ears: bilateral: normal - Neck Neck: normal ROM Carotids: bilateral: upstroke normal Thyroid: bilateral: normal size - Respiratory Respiratory: bilateral: diminished - Cardiovascular Rhythm: regular Heart sounds: normal: S1, S2 - Gastrointestinal General gastrointestinal: decreased bowel sounds - Integumentary Integumentary: normal turgor - Neurologic Neurologic: CNII-XII intact - Musculoskeletal Musculoskeletal: gait normal, generalized weakness, strength equal bilaterally - Psychiatric Psychiatric: A&O x's 3, appropriate affect, intact judgment & insight - Labs CBC & Chem 7: 05/07/20 08:17 05/07/20 08:17 Labs: Abnormal Lab Results - Last 24 Hours (Table) 05/12/20 05/12/20 05/13/20 Range/Units 17:16 20:12 07:10 POC Glucose (mg/dL) 262 H 336 H 188 H (75-99) mg/dL 05/13/20 Range/Units 10:43 POC Glucose (mg/dL) 216 H (75-99) mg/dL Assessment and Plan Assessment: Acute hypoxic respiratory failure Covid 19 pneumonia Community-acquired pneumonia/secondary bacterial pneumonia Uncontrolled diabetes Hypertension hypertensive cardiovascular disease Hypothyroidism Lipidemia Generalized anxiety disorder Plan: Continue IV Rocephin Supplemental oxygen, titrated down as tolerated Deep breathing exercise incentive spirometry Prone positioning Decadron RAMdesivir for 5 days Replacement of electrolytes and minerals vitamins including vitamin C, zinc, D Continue home medications Recommendations pending plan of care as per clinical response of the patient Time with Patient: Greater than 30
[2020-05-13 16:50] LABS: Glucose,Whole Blood 273 mg/dL (75-99)
[2020-05-13] MEDS: ZINC SULFATE 220 MG CAP PO SCH (17:00)
[2020-05-13] MEDS: MULTIVITAMINS, THERA 1 EACH TAB PO SCH (17:00)
[2020-05-13] MEDS: ASCORBIC ACID 500 MG TAB PO SCH (17:00)
[2020-05-13] MEDS: CHOLECALCIFEROL 1,000 UNIT TAB PO SCH (17:00)
[2020-05-13 20:15] LABS: Glucose,Whole Blood 199 mg/dL (75-99)
[2020-05-13] MEDS: LATANOPROST 0.005% OPHTH DROPS 2.5 ML BTL BOTH EYES SCH (20:47)
[2020-05-13] MEDS: ATORVASTATIN 40 MG TAB PO SCH (20:47)
[2020-05-14] MEDS: LEVOTHYROXINE 50 MCG TAB PO SCH (05:53)
[2020-05-14] MEDS: ACETAMINOPHEN TAB 325 MG TAB PO PRN (05:55)
[2020-05-14 07:11] LABS: Glucose,Whole Blood 176 mg/dL (75-99)
[2020-05-14] MEDS: metFORMIN 500 MG TAB PO SCH (07:46)
[2020-05-14] MEDS: INSULIN ASPART (NovoLOG) 100 UNIT/ML VIAL SQ SCH ×4 (08:44→20:57)
[2020-05-14] MEDS: FLUoxetine HCL 20 MG CAP PO SCH (08:44)
[2020-05-14] MEDS: DEXAMETHASONE SOD PHOSPHATE 10 MG/ML 1 ML VIAL IV SCH (08:45)
[2020-05-14] MEDS: DILTIAZEM CD 240 MG CAP.ER.24H PO SCH (08:45)
[2020-05-14] MEDS: ENOXAPARIN 30 MG/0.3 ML SYRINGE SQ SCH ×2 (08:54→20:57)
[2020-05-14] MEDS: ALBUTEROL HFA INHALER INHALATION SCH ×3 (09:07→20:08)
--- NOTE | 2020-05-14 10:50 | P.PN ---
Subjective Progress Note Date: 05/14/20 Principal diagnosis: Acute hypoxic respiratory failure Covid 19 pneumonia Uncontrolled diabetes Hypertension hypertensive cardiovascular disease Hypothyroidism Lipidemia Generalized anxiety disorder 05/14/2020, patient seen and evaluated examined during the rounds is still on aerosolized high flow oxygen, FiO2 slowly being tapered down, denies any chest pain breathing has been stable patient has been doing prone positioning during sleep and deep breathing exercises that they'll incentive spirometry being done as well, sugars are stable 176, patient remains on usual therapy for Covid 19 pneumonia along with broad-spectrum antibiotics my remains afebrile oxygen satur ation is 93%, 05/13/2020, patient seen eval examined during the rounds labs reviewed medications reviewed care plan discussed, respiratory status remained marginal but she is on 35 L now and aerosolized oxygen, oxygen saturation is 96%, breathing comfortably less this neck on activity and exertion 05/12/2020, patient seen eval examined patient remains on air wall aerosolized high flow oxygen, oxygen percent is slowly being titrated down more awake and alert sitting upright on the bed short of breath on exertion, oxygen saturation 91%, getting usual therapy for Covid 19 pneumonia 05/11/2020, patient seen eval examined during the rounds labs reviewed medications reviewed care plan discussed, respiratory status remained stable, denies any chest pain breathing comfortably, remains on high flow aerosolized oxygen with airvo, oxygen saturation is 97%, remains her usual therapy for Covid 19 pneumonia 05/10/2020, patient has been on high flow aerosolized oxygen with air wall, she has been prone doing incentive spirometry, denies any cough or sputum production, she is afebrile, saturation is 93%, blood cultures no growth sputum culture wide variety of organism rare however are growing final ID pending, on third generation cephalosporin along with IV Decadron and anticoagulation with L ovenox, 05/09/2020, patient seen eval reexamined, remains on 15 L 60% oxygen, shortness of breath is there but oxygen saturation improved to 9596% less short of breath on activity, 05/08/2020, patient seen eval examined during the rounds currently patient is on 20 L, 50% oxygen, saturation is mid 90s his sputum is being sent for Gram stain and culture, continue therapy for community-acquired pneumonia and Covid 19 pneumonia and follow clinical course closely 05/07/2020, patient seen eval examined overall respiratory status remains compromised, patient is on 15 L high flow oxygen, saturation is mid 80s, will switch to aerosolized oxygen continue supportive care instructed to continue deep breathing exercises incentive spirometry will add broad-spectrum antibiotics as well This is a pleasant 79-year-old female who was diagnosed as covert infection about 7 days ago, progressive increased shortness of breath has been noted in the last 2 days was hypoxic unable to complete full sentences, came into the hospital for further evaluation and intervention and treatment, patient has significant history of depression dyslipidemia hypertension hypertensive cardiovascular disease, hypothyroidism, angina, type 2 diabetes mellitus, in emergency department she was noted to have a low-grade fever she was tachypneic tachycardic, wiring 2 L supplemental oxygen, patient underwent chest x-ray and computed tomography scan of the chest, patient admitted into the hospital with supplemental oxygen IV steroids and REMdesivir therapy her chest x-ray assistive of left-sided pneumonia and small left-sided pleural effusion bilateral interstitial infiltrate also involving the right side in patchy fashion, ED of chest failed to show any pulmonary embolism however confirmed similar findings, heart covid 19 came back positive Objective - Vital Signs Vital signs: Vital Signs Temp 98.0 F 05/14/20 10:21 Pulse 64 05/14/20 10:21 Resp 18 05/14/20 10:21 BP 138/61 05/14/20 10:21 Pulse Ox 93 L 05/14/20 10:21 Intake & Output 05/13/20 05/14/20 05/14/20 18:59 06:59 18:59 Intake Total 240 590 Balance 240 590 Weight 70.307 kg Intake: Intake, IV Titration 240 Amount Sodium Chloride 0.9% 1, 240 000 ml @ 20 mls/hr IV . Q24H [facility] Rx#:[id number] Oral 590 Other: Voiding Method Bedside Commode Bedside Commode # Voids 4 - Exam - Constitutional General appearance: average body habitus, cooperative, disheveled - EENT Eyes: PERRLA ENT: hearing grossly normal Ears: bilateral: normal - Neck Neck: normal ROM Carotids: bilateral: upstroke normal Thyroid: bilateral: normal size - Respiratory Respiratory: bilateral: diminished - Cardiovascular Rhythm: regular Heart sounds: normal: S1, S2 - Gastrointestinal General gastrointestinal: decreased bowel sounds - Integumentary Integumentary: normal turgor - Neurologic Neurologic: CNII-XII intact - Musculoskeletal Musculoskeletal: gait normal, generalized weakness, strength equal bilaterally - Psychiatric Psychiatric: A&O x's 3, appropriate affect, intact judgment & insight - Labs CBC & Chem 7: 05/07/20 08:17 05/07/20 08:17 Labs: Abnormal Lab Results - Last 24 Hours (Table) 05/13/20 05/13/20 05/14/20 Range/Units 16:49 20:14 07:08 POC Glucose (mg/dL) 273 H 199 H 176 H (75-99) mg/dL Assessment and Plan Assessment: Acute hypoxic respiratory failure Covid 19 pneumonia Community-acquired pneumonia/secondary bacterial pneumonia Uncontrolled diabetes Hypertension hypertensive cardiovascular disease Hypothyroidism Lipidemia Generalized anxiety disorder Plan: Continue IV Rocephin Supplemental oxygen, titrated down as tolerated Deep breathing exercise incentive spirometry Prone positioning Decadron RAMdesivir for 5 days Replacement of electrolytes and minerals vitamins including vitamin C, zinc, D Continue home medications Recommendations pending plan of care as per clinical response of the patient Time with Patient: Greater than 30
[2020-05-14 10:58] LABS: Glucose,Whole Blood 167 mg/dL (75-99)
[2020-05-14] MEDS: SODIUM CHLORIDE 0.9% 1,000 ML IV SCH (13:07)
[2020-05-14] MEDS: ASCORBIC ACID 500 MG TAB PO SCH (16:52)
[2020-05-14] MEDS: CHOLECALCIFEROL 1,000 UNIT TAB PO SCH (16:53)
[2020-05-14] MEDS: MULTIVITAMINS, THERA 1 EACH TAB PO SCH (16:53)
[2020-05-14] MEDS: ZINC SULFATE 220 MG CAP PO SCH (16:53)
[2020-05-14 17:17] LABS: Glucose,Whole Blood 249 mg/dL (75-99)
[2020-05-14 20:59] LABS: Glucose,Whole Blood 361 mg/dL (75-99)
[2020-05-14] MEDS: LATANOPROST 0.005% OPHTH DROPS 2.5 ML BTL BOTH EYES SCH (20:59)
[2020-05-15] MEDS: ALPRAZolam 0.25 MG TAB PO PRN ×2 (00:34→22:17)
[2020-05-15] MEDS: LEVOTHYROXINE 50 MCG TAB PO SCH (05:26)
[2020-05-15 07:26] LABS: Glucose,Whole Blood 193 mg/dL (75-99)
[2020-05-15] MEDS: ALBUTEROL HFA INHALER INHALATION SCH ×3 (07:56→19:29)
[2020-05-15 10:59] LABS: Glucose,Whole Blood 230 mg/dL (75-99)
[2020-05-15] MEDS: metFORMIN 500 MG TAB PO SCH (11:19)
[2020-05-15] MEDS: INSULIN ASPART (NovoLOG) 100 UNIT/ML VIAL SQ SCH ×4 (11:19→20:45)
[2020-05-15] MEDS: FLUoxetine HCL 20 MG CAP PO SCH (11:19)
[2020-05-15] MEDS: DILTIAZEM CD 240 MG CAP.ER.24H PO SCH (11:19)
[2020-05-15] MEDS: DEXAMETHASONE SOD PHOSPHATE 10 MG/ML 1 ML VIAL IV SCH (11:20)
[2020-05-15] MEDS: ENOXAPARIN 30 MG/0.3 ML SYRINGE SQ SCH ×2 (11:20→20:45)
[2020-05-15 17:09] LABS: Glucose,Whole Blood 393 mg/dL (75-99)
[2020-05-15] MEDS: ASCORBIC ACID 500 MG TAB PO SCH (17:39)
[2020-05-15] MEDS: ZINC SULFATE 220 MG CAP PO SCH (17:39)
[2020-05-15] MEDS: MULTIVITAMINS, THERA 1 EACH TAB PO SCH (17:39)
[2020-05-15] MEDS: CHOLECALCIFEROL 1,000 UNIT TAB PO SCH (17:39)
[2020-05-15] MEDS: SODIUM CHLORIDE 0.9% 1,000 ML IV SCH (17:42)
[2020-05-15 20:36] LABS: Glucose,Whole Blood 327 mg/dL (75-99)
[2020-05-15] MEDS: ATORVASTATIN 40 MG TAB PO SCH (20:45)
[2020-05-15] MEDS: LATANOPROST 0.005% OPHTH DROPS 2.5 ML BTL BOTH EYES SCH (20:47)
[2020-05-16] MEDS: LEVOTHYROXINE 50 MCG TAB PO SCH (05:05)
[2020-05-16] MEDS: ALBUTEROL HFA INHALER INHALATION SCH ×3 (07:30→20:22)
[2020-05-16 07:34] LABS: Glucose,Whole Blood 190 mg/dL (75-99)
--- NOTE | 2020-05-16 08:45 | P.PN ---
Subjective Progress Note Date: 05/16/20 Principal diagnosis: Acute hypoxic respiratory failure Covid 19 pneumonia Uncontrolled diabetes Hypertension hypertensive cardiovascular disease Hypothyroidism Lipidemia Generalized anxiety disorder 05/16/2020, patient seen and evaluated, FiO2 is down to 5 L now, sitting upright on the bed breathing comfortably, patient continued do deep breathing sense incentive spirometry, sleeping in prone position, denies any cough or sputum production, walking in the room with a walker, hemodynamic status stable afebrile with oxygen saturation of 94% on 5 L, patient remain on usual therapy for Covid 19 pneumonia, we'll repeat chest x-ray and labs in the morning 05/15/2020, patient checked FiO2 continued to be titrated down in good spirits nonspecific complaints 05/14/2020, patient seen and evaluated examined during the rounds is still on aerosolized high flow oxygen, FiO2 slowly being tapered down, denies any chest pain breathing has been stable patient has been doing prone positioning during sleep and deep breathing exercises that they'll incentive spirometry being done as well, sugars are stable 176, patient remains on usual therapy for Covid 19 pneumonia along with broad-spectrum antibiotics my remains afebrile oxygen saturation is 93%, 05/13/2020, patient seen eval examined during the rounds labs reviewed medications reviewed care plan discussed, respiratory status remained marginal but she is on 35 L now and aerosolized oxygen, oxygen saturation is 96%, breathing comfortably less this neck on activity and exertion 05/12/2020, patient seen eval examined patient remains on air wall aerosolized high flow oxygen, oxygen percent is slowly being titrated down more awake and alert sitting upright on the bed short of breath on exertion, oxygen saturation 91%, getting usual therapy for Covid 19 pneumonia 05/11/2020, patient seen eval examined during the rounds labs reviewed medications reviewed care plan discussed, respiratory status remained stable, denies any chest pain breathing comfortably, remains on high flow aerosolized oxygen with airvo, oxygen saturation is 97%, remains her usual therapy for Covid 19 pneumonia 05/10/2020, patient has been on high flow aerosolized oxygen with air wall, she has been prone doing incentive spirometry, denies any cough or sputum production, she is afebrile, saturation is 93%, blood cultures no growth sputum culture wide variety of organism rare however are growing final ID pending, on third generation cephalosporin along with IV Decadron and anticoagulation with Lovenox, 05/09/2020, patient seen eval reexamined, remains on 15 L 60% oxygen, shortness of breath is there but oxygen saturation improved to 9596% less short of breath on activity, 05/08/2020, patient seen eval examined during the rounds currently patient is on 20 L, 50% oxygen, saturation is mid 90s his sputum is being sent for Gram stain and culture, continue therapy for community-acquired pneumonia and Covid 19 pneumonia and follow clinical course closely 05/07/2020, patient seen eval examined overall respiratory status remains compromised, patient is on 15 L high flow oxygen, saturation is mid 80s, will switch to aerosolized oxygen continue supportive care instructed to continue deep breathing exercises incentive spirometry will add broad-spectrum antibiotics as well This is a pleasant 79-year-old female who was diagnosed as covert infection about 7 days ago, progressive increased shortness of breath has been noted in the last 2 days was hypoxic unable to complete full sentences, came into the hospital for further evaluation and intervention and treatment, patient has significant history of depression dyslipidemia hypertension hypertensive cardiovascular disease, hypothyroidism, angina, type 2 diabetes mellitus, in emergency department she was noted to have a low-grade fever she was tachypneic tachycardic, wiring 2 L supplemental oxygen, patient underwent chest x-ray and computed tomography scan of the chest, patient admitted into the hospital with supplemental oxygen IV steroids and REMdesivir therapy her chest x-ray assistive of left-sided pneumonia and small left-sided pleural effusion bilateral interstitial infiltrate also involving the right side in patchy fashion, ED of chest failed to show any pulmonary embolism however confirmed similar findings, heart covid 19 came back positive Objective - Vital Signs Vital signs: Vital Signs Temp 97.6 F 05/16/20 04:15 Pulse 63 05/16/20 04:15 Resp 18 05/16/20 04:15 BP 115/52 05/16/20 04:15 Pulse Ox 94 L 05/16/20 07:30 Intake & Output 05/15/20 05/16/20 05/16/20 18:59 06:59 18:59 Intake Total 760 600 Balance 760 600 Intake: Intake, IV Titration 160 Amount Sodium Chloride 0.9% 1, 160 000 ml @ 20 mls/hr IV . Q24H [facility] Rx#:[id number] Oral 600 600 Other: Voiding Method Bedside Commode Bedside Commode # Voids 3 3 - Exam - Constitutional General appearance: average body habitus, cooperative, disheveled - EENT Eyes: PERRLA ENT: hearing grossly normal Ears: bilateral: normal - Neck Neck: normal ROM Carotids: bilateral: upstroke normal Thyroid: bilateral: normal size - Respiratory Respiratory: bilateral: diminished - Cardiovascular Rhythm: regular Heart sounds: normal: S1, S2 - Gastrointestinal General gastrointestinal: decreased bowel sounds - Integumentary Integumentary: normal turgor - Neurologic Neurologic: CNII-XII intact - Musculoskeletal Musculoskeletal: gait normal, generalized weakness, strength equal bilaterally - Psychiatric Psychiatric: A&O x's 3, appropriate affect, intact judgment & insight - Labs CBC & Chem 7: 05/07/20 08:17 05/07/20 08:17 Labs: Abnormal Lab Results - Last 24 Hours (Table) 05/15/20 05/15/20 05/15/20 Range/Units 10:58 17:08 20:35 POC Glucose (mg/dL) 230 H 393 H 327 H (75-99) mg/dL 05/16/20 Range/Units 07:33 POC Glucose (mg/dL) 190 H (75-99) mg/dL Assessment and Plan Assessment: Acute hypoxic respiratory failure Covid 19 pneumonia Community-acquired pneumonia/secondary bacterial pneumonia Uncontrolled diabetes Hypertension hypertensive cardiovascular disease Hypothyroidism Lipidemia Generalized anxiety disorder Plan: Continue IV Rocephin Supplemental oxygen, titrated down as tolerated Deep breathing exercise incentive spirometry Prone positioning Decadron RAMdesivir for 5 days Replacement of electrolytes and minerals vitamins including vitamin C, zinc, D Continue home medications Recommendations pending plan of care as per clinical response of the patient Time with Patient: Greater than 30
[2020-05-16] MEDS: metFORMIN 500 MG TAB PO SCH (09:43)
[2020-05-16] MEDS: ENOXAPARIN 30 MG/0.3 ML SYRINGE SQ SCH ×2 (09:44→20:41)
[2020-05-16] MEDS: DEXAMETHASONE SOD PHOSPHATE 10 MG/ML 1 ML VIAL IV SCH (09:44)
[2020-05-16] MEDS: INSULIN ASPART (NovoLOG) 100 UNIT/ML VIAL SQ SCH ×4 (09:44→20:41)
[2020-05-16] MEDS: FLUoxetine HCL 20 MG CAP PO SCH (09:45)
[2020-05-16] MEDS: DILTIAZEM CD 240 MG CAP.ER.24H PO SCH (09:45)
[2020-05-16 11:16] LABS: Glucose,Whole Blood 260 mg/dL (75-99)
[2020-05-16 17:01] LABS: Glucose,Whole Blood 330 mg/dL (75-99)
[2020-05-16] MEDS: MULTIVITAMINS, THERA 1 EACH TAB PO SCH (17:52)
[2020-05-16] MEDS: CHOLECALCIFEROL 1,000 UNIT TAB PO SCH (17:52)
[2020-05-16] MEDS: ZINC SULFATE 220 MG CAP PO SCH (17:53)
[2020-05-16] MEDS: ASCORBIC ACID 500 MG TAB PO SCH (17:53)
[2020-05-16] MEDS: SODIUM CHLORIDE 0.9% 1,000 ML IV SCH (19:01)
[2020-05-16 20:25] LABS: Glucose,Whole Blood 360 mg/dL (75-99)
[2020-05-16] MEDS: ATORVASTATIN 40 MG TAB PO SCH (20:41)
[2020-05-16] MEDS: LATANOPROST 0.005% OPHTH DROPS 2.5 ML BTL BOTH EYES SCH (20:43)
[2020-05-16] MEDS: ALPRAZolam 0.25 MG TAB PO PRN (22:21)
[2020-05-17] MEDS: LEVOTHYROXINE 50 MCG TAB PO SCH (05:15)
[2020-05-17 05:40] LABS: Basophils # (A) 0.1 k/uL (0-0.2); Basophils % (A) 1 %; Eosinophils % (A) 0 %; HCT 38.8 % (34.0-46.0); Lymphocytes # (A) 0.6 k/uL (1.0-4.8); Lymphocytes % (A) 8 %; MCH 28.9 pg (25.0-35.0); MCHC 33.6 g/dL (31.0-37.0); Mean Platelet Volume 7.9; Monocytes # (A) 0.5 k/uL (0-1.0); Monocytes % (A) 6 %; Neutrophils # (A) 6.9 k/uL (1.3-7.7); Neutrophils % (A) 84 %; Platelet Count 122 k/uL (150-450); RBC 4.51 m/uL (3.80-5.40); RDW 13.1 % (11.5-15.5); WBC 8.2 k/uL (3.8-10.6)
[2020-05-17 07:14] LABS: Glucose,Whole Blood 230 mg/dL (75-99)
[2020-05-17] MEDS: ALBUTEROL HFA INHALER INHALATION SCH ×3 (07:40→20:05)
--- NOTE | 2020-05-17 07:42 | XR ---
EXAMINATION TYPE: XR chest 1V DATE OF EXAM: 05/17/2020 COMPARISON: 05/05/2020 HISTORY: 79-year-old female, COVID 19 pneumonia TECHNIQUE: Single frontal view of the chest is obtained. FINDINGS: Patchy left basilar opacity and possible trace effusion. Interstitial densities appear slightly more pronounced. Surgical clips right axilla. Heart borderline in size. Hyperinflation. IMPRESSION: 1. COPD with increasing interstitial change could reflect worsening atypical pneumonia or developing superimposed mild CHF. 2. Continued left basilar atelectasis and/or consolidation.
[2020-05-17] MEDS: INSULIN ASPART (NovoLOG) 100 UNIT/ML VIAL SQ SCH ×4 (08:19→21:26)
[2020-05-17] MEDS: DEXAMETHASONE SOD PHOSPHATE 10 MG/ML 1 ML VIAL IV SCH (08:19)
[2020-05-17] MEDS: ENOXAPARIN 30 MG/0.3 ML SYRINGE SQ SCH ×2 (08:19→21:26)
[2020-05-17] MEDS: metFORMIN 500 MG TAB PO SCH (08:20)
[2020-05-17] MEDS: FLUoxetine HCL 20 MG CAP PO SCH (08:21)
[2020-05-17] MEDS: DILTIAZEM CD 240 MG CAP.ER.24H PO SCH (08:21)
[2020-05-17 09:15] LABS: African American GFR (CKD) 99.1 (60.0-200.0); Albumin 3.5 g/dL (3.80-4.90); Albumin/Globulin Ratio 1.94 (1.60-3.17); Anion Gap 8.2 mmol/L (4.00-12.00); BUN/Creat Ratio 31.67 Ratio (12.00-20.00); Calcium 8.5 mg/dL (8.7-10.3); Carbon Dioxide 26.8 mmol/L (21.6-31.8); Globulin 1.8 g/dL (1.6-3.3); Non-African American GFR(CKD) 85.5 (60.0-200.0); Potassium 4.7 mmol/L (3.5-5.5); Total Bilirubin 0.5 mg/dL (0.2-1.2); Total Protein 5.3 g/dL (6.2-8.2)
[2020-05-17 11:38] LABS: Glucose,Whole Blood 313 mg/dL (75-99)
--- NOTE | 2020-05-17 11:42 | P.PN ---
Subjective Progress Note Date: 05/17/20 Principal diagnosis: Acute hypoxic respiratory failure Covid 19 pneumonia Uncontrolled diabetes Hypertension hypertensive cardiovascular disease Hypothyroidism Lipidemia Generalized anxiety disorder 05/17/2020, patient seen eval examined during the rounds labs reviewed med ications reviewed care plan discussed, respiratory status remained stable, denies any chest pain, patient is down to 4 L nasal cannula patient due to use home oxygen 2-1/2 L at home, will try to taper down the oxygen to 2-1/2 L in next 24 hours likely discharge home in next 24 hours 05/16/2020, patient seen and evaluated, FiO2 is down to 5 L now, sitting upright on the bed breathing comfortably, patient continued do deep breathing sense incentive spirometry, sleeping in prone position, denies any cough or sputum production, walking in the room with a walker, hemodynamic status stable afebrile with oxygen saturation of 94% on 5 L, patient remain on usual therapy for Covid 19 pneumonia, we'll repeat chest x-ray and labs in the morning 05/15/2020, patient checked FiO2 continued to be titrated down in good spirits nonspecific complaints 05/14/2020, patient seen and evaluated examined during the rounds is still on aerosolized high flow oxygen, FiO2 slowly being tapered down, denies any chest pain breathing has been stable patient has been doing prone positioning during sleep and deep breathing exercises that they'll incentive spirometry being done as well, sugars are stable 176, patient remains on usual therapy for Covid 19 pneumonia along with broad-spectrum antibiotics my remains afebrile oxygen saturation is 93%, 05/13/2020, patient seen eval examined during the rounds labs reviewed medications reviewed care plan discussed, respiratory status remained marginal but she is on 35 L now and aerosolized oxygen, oxygen saturation is 96%, breathing comfortably less this neck on activity and exertion 05/12/2020, patient seen eval examined patient remains on air wall aerosolized high flow oxygen, oxygen percent is slowly being titrated down more awake and alert sitting upright on the bed short of breath on exertion, oxygen saturation 91%, getting usual therapy for Covid 19 pneumonia 05/11/2020, patient seen eval examined during the rounds labs reviewed medications reviewed care plan discussed, respiratory status remained stable, denies any chest pain breathing comfortably, remains on high flow aerosolized oxygen with airvo, oxygen saturation is 97%, remains her usual therapy for Covid 19 pneumonia 05/10/2020, patient has been on high flow aerosolized oxygen with air wall, she has been prone doing incentive spirometry, denies any cough or sputum production, she is afebrile, saturation is 93%, blood cultures no growth sputum culture wide variety of organism rare however are growing final ID pending, on third generation cephalosporin along with IV Decadron and anticoagulation with Lovenox, 05/09/2020, patient seen eval reexamined, remains on 15 L 60% oxygen, shortness of breath is there but oxygen saturation improved to 9596% less short of breath on activity, 05/08/2020, patient seen eval examined during the rounds currently patient is on 20 L, 50% oxygen, saturation is mid 90s his sputum is being sent for Gram stain and culture, continue therapy for community-acquired pneumonia and Covid 19 pneumonia and follow clinical course closely 05/07/2020, patient seen eval examined overall respiratory status remains compromised, patient is on 15 L high flow oxygen, saturation is mid 80s, will switch to aerosolized oxygen continue supportive care instructed to continue deep breathing exercises incentive spirometry will add broad-spectrum antibiotics as well This is a pleasant 79-year-old female who was diagnosed as covert infection about 7 days ago, progressive increased shortness of breath has been noted in the last 2 days was hypoxic unable to complete full sentences, came into the hospital for further evaluation and intervention and treatment, patient has significant history of depression dyslipidemia hypertension hypertensive cardi ovascular disease, hypothyroidism, angina, type 2 diabetes mellitus, in emergency department she was noted to have a low-grade fever she was tachypneic tachycardic, wiring 2 L supplemental oxygen, patient underwent chest x-ray and computed tomography scan of the chest, patient admitted into the hospital with supplemental oxygen IV steroids and REMdesivir therapy her chest x-ray assistive of left-sided pneumonia and small left-sided pleural effusion bilateral interstitial infiltrate also involving the right side in patchy fashion, ED of chest failed to show any pulmonary embolism however confirmed similar findings, heart covid 19 came back positive Objective - Vital Signs Vital signs: Vital Signs Temp 98.4 F 05/17/20 11:00 Pulse 65 05/17/20 11:00 Resp 17 05/17/20 11:00 BP 127/68 05/17/20 11:00 Pulse Ox 94 L 05/17/20 11:00 Intake & Output 05/16/20 05/17/20 05/17/20 18:59 06:59 18:59 Intake Total 800 600 Balance 800 600 Intake: Oral 800 600 Other: Voiding Method Bedside Commode Bedside Commode # Voids 2 3 # Bowel Movements 2 1 - Exam - Constitutional General appearance: average body habitus, cooperative, disheveled - EENT Eyes: PERRLA ENT: hearing grossly normal Ears: bilateral: normal - Neck Neck: normal ROM Carotids: bilateral: upstroke normal Thyroid: bilateral: normal size - Respiratory Respiratory: bilateral: diminished - Cardiovascular Rhythm: regular Heart sounds: normal: S1, S2 - Gastrointestinal General gastrointestinal: decreased bowel sounds - Integumentary Integumentary: normal turgor - Neurologic Neurologic: CNII-XII intact - Musculoskeletal Musculoskeletal: gait normal, generalized weakness, strength equal bilaterally - Psychiatric Psychiatric: A&O x's 3, appropriate affect, intact judgment & insight - Labs CBC & Chem 7: 05/17/20 05:10 05/17/20 05:10 Labs: Abnormal Lab Results - Last 24 Hours (Table) 05/16/20 05/16/20 05/17/20 Range/Units 16:59 20:23 05:10 Plt Count 122 L (150-450) k/uL Lymphocytes # 0.6 L (1.0-4.8) k/uL Sodium (135-145) mmol/L BUN/Creatinine Ratio (12.00-20.00) Ratio Glucose (70-110) mg/dL POC Glucose (mg/dL) 330 H 360 H (75-99) mg/dL Calcium (8.7-10.3) mg/dL AST (13-35) U/L ALT (8-44) U/L Total Protein (6.2-8.2) g/dL Albumin (3.80-4.90) g/dL 05/17/20 05/17/20 05/17/20 Range/Units 05:10 07:04 11:35 Plt Count (150-450) k/uL Lymphocytes # (1.0-4.8) k/uL Sodium 132 L (135-145) mmol/L BUN/Creatinine Ratio 31.67 H (12.00-20.00) Ratio Glucose 272 H (70-110) mg/dL POC Glucose (mg/dL) 230 H 313 H (75-99) mg/dL Calcium 8.5 L (8.7-10.3) mg/dL AST 49 H (13-35) U/L ALT 69 H (8-44) U/L Total Protein 5.3 L (6.2-8.2) g/dL Albumin 3.50 L (3.80-4.90) g/dL Assessment and Plan Assessment: Acute hypoxic respiratory failure Covid 19 pneumonia Community-acquired pneumonia/secondary bacterial pneumonia Uncontrolled diabetes Hypertension hypertensive cardiovascular disease Hypothyroidism Lipidemia Generalized anxiety disorder Plan: Continue IV Rocephin Supplemental oxygen, titrated down as tolerated Deep breathing exercise incentive spirometry Prone positioning Decadron RAMdesivir for 5 days Replacement of electrolytes and minerals vitamins including vitamin C, zinc, D Continue home medications Recommendations pending plan of care as per clinical response of the patient Time with Patient: Greater than 30
[2020-05-17] MEDS: SODIUM CHLORIDE 0.9% 1,000 ML IV SCH (13:27)
[2020-05-17] MEDS: ASCORBIC ACID 500 MG TAB PO SCH (16:35)
[2020-05-17] MEDS: ZINC SULFATE 220 MG CAP PO SCH (16:35)
[2020-05-17] MEDS: MULTIVITAMINS, THERA 1 EACH TAB PO SCH (16:35)
[2020-05-17] MEDS: CHOLECALCIFEROL 1,000 UNIT TAB PO SCH (16:35)
[2020-05-17 18:02] LABS: Glucose,Whole Blood 346 mg/dL (75-99)
[2020-05-17] MEDS: ATORVASTATIN 40 MG TAB PO SCH (21:26)
[2020-05-17] MEDS: LATANOPROST 0.005% OPHTH DROPS 2.5 ML BTL BOTH EYES SCH (21:27)
[2020-05-17 21:38] LABS: Glucose,Whole Blood 342 mg/dL (75-99)
[2020-05-18] MEDS: ALPRAZolam 0.25 MG TAB PO PRN (00:28)
[2020-05-18] MEDS: LEVOTHYROXINE 50 MCG TAB PO SCH (05:08)
[2020-05-18 07:27] LABS: Glucose,Whole Blood 246 mg/dL (75-99)
[2020-05-18] MEDS: metFORMIN 500 MG TAB PO SCH (07:35)
[2020-05-18] MEDS: ALBUTEROL HFA INHALER INHALATION SCH ×2 (07:46→11:38)
[2020-05-18] MEDS: FLUoxetine HCL 20 MG CAP PO SCH (08:15)
[2020-05-18] MEDS: INSULIN ASPART (NovoLOG) 100 UNIT/ML VIAL SQ SCH ×2 (08:15→13:37)
[2020-05-18] MEDS: DEXAMETHASONE SOD PHOSPHATE 10 MG/ML 1 ML VIAL IV SCH (08:15)
[2020-05-18] MEDS: ENOXAPARIN 30 MG/0.3 ML SYRINGE SQ SCH (08:15)
[2020-05-18] MEDS: DILTIAZEM CD 240 MG CAP.ER.24H PO SCH (08:17)
[2020-05-18] MEDS: SODIUM CHLORIDE 0.9% 1,000 ML IV SCH (08:27)
--- NOTE | 2020-05-18 11:10 | P.DS ---
Providers Date of admission: 05/05/20 12:04 Expected date of discharge: 05/18/20 Attending physician: Keith Jackman Primary care physician: Markie Coates MD Hospital Course: 05/18/2020, patient seen eval reexamined during the rounds labs reviewed medications reviewed care plan discussed with the staff at length, patient is back on 2 L oxygen, patient does have oxygen at home, patient wants to go home she has completed her usual Covid 19 therapy including Decadron and IV REM doesn't wear, patient can be discharged home at this point time her sugars are running high she does have history of diabetes and elevated hemoglobin A1c, patient will benefit from glucometer and regular check of sugars and to follow- up with primary care provider so further adjustment in diabetes management can be done 05/17/2020, patient seen eval examined during the rounds labs reviewed medications reviewed care plan discussed, respiratory status remained stable, denies any chest pain, patient is down to 4 L nasal cannula patient due to use home oxygen 2-1/2 L at home, will try to taper down the oxygen to 2-1/2 L in next 24 hours likely discharge home in next 24 hours 05/16/2020, patient seen and evaluated, FiO2 is down to 5 L now, sitting upright on the bed breathing comfortably, patient continued do deep breathing sense incentive spirometry, sleeping in prone position, denies any cough or sputum production, walking in the room with a walker, hemodynamic status stable afebrile with oxygen saturation of 94% on 5 L, patient remain on usual therapy for Covid 19 pneumonia, we'll repeat chest x-ray and labs in the morning 05/15/2020, patient checked FiO2 continued to be titrated down in good spirits nonspecific complaints 05/14/2020, patient seen and evaluated examined during the rounds is still on aerosolized high flow oxygen, FiO2 slowly being tapered down, denies any chest pain breathing has been stable patient has been doing prone positioning during sleep and deep breathing exercises that they'll incentive spirometry being done as well, sugars are stable 176, patient remains on usual therapy for Covid 19 pneumonia along with broad-spectrum antibiotics my remains afebrile oxygen saturation is 93%, 05/13/2020, patient seen eval examined during the rounds labs reviewed medications reviewed care plan discussed, respiratory status remained marginal but she is on 35 L now and aerosolized oxygen, oxygen saturation is 96%, breathing comfortably less this neck on activity and exertion 05/12/2020, patient seen eval examined patient remains on air wall aerosolized high flow oxygen, oxygen percent is slowly being titrated down more awake and alert sitting upright on the bed short of breath on exertion, oxygen saturation 91%, getting usual therapy for Covid 19 pneumonia 05/11/2020, patient seen eval examined during the rounds labs reviewed medications reviewed care plan discussed, respiratory status remained stable, denies any chest pain breathing comfortably, remains on high flow aerosolized oxygen with airvo, oxygen saturation is 97%, remains her usual therapy for Covid 19 pneumonia 05/10/2020, patient has been on high flow aerosolized oxygen with air wall, she has been prone doing incentive spirometry, denies any cough or sputum production, she is afebrile, saturation is 93%, blood cultures no growth sputum culture wide variety of organism rare however are growing final ID pending, on third generation cephalosporin along with IV Decadron and anticoagulation with Lovenox, 05/09/2020, patient seen eval reexamined, remains on 15 L 60% oxygen, shortness of breath is there but oxygen saturation improved to 9596% less short of breath on activity, 05/08/2020, patient seen eval examined during the rounds currently patient is on 20 L, 50% oxygen, saturation is mid 90s his sputum is being sent for Gram stain and culture, continue therapy for community-acquired pneumonia and Covid 19 pneumonia and follow clinical course closely 05/07/2020, patient seen eval examined overall respiratory status remains compr omised, patient is on 15 L high flow oxygen, saturation is mid 80s, will switch to aerosolized oxygen continue supportive care instructed to continue deep breathing exercises incentive spirometry will add broad-spectrum antibiotics as well This is a pleasant 79-year-old female who was diagnosed as covert infection about 7 days ago, progressive increased shortness of breath has been noted in the last 2 days was hypoxic unable to complete full sentences, came into the hospital for further evaluation and intervention and treatment, patient has significant history of depression dyslipidemia hypertension hypertensive cardiovascular disease, hypothyroidism, angina, type 2 diabetes mellitus, in emergency department she was noted to have a low-grade fever she was tachypneic tachycardic, wiring 2 L supplemental oxygen, patient underwent chest x-ray and computed tomography scan of the chest, patient admitted into the hospital with supplemental oxygen IV steroids and REMdesivir therapy her chest x-ray assistive of left-sided pneumonia and small left-sided pleural effusion bilateral interstitial infiltrate also involving the right side in patchy fashion, ED of chest failed to show any pulmonary embolism however confirmed similar findings, heart covid 19 came back positive Vital signs: Vital Signs Temp 98.4 F 05/17/20 11:00 Pulse 65 05/17/20 11:00 Resp 17 05/17/20 11:00 BP 127/68 05/17/20 11:00 Pulse Ox 94 L 05/17/20 11:00 Intake & Output 05/16/20 05/17/20 05/17/20 18:59 06:59 18:59 Intake Total 800 600 Balance 800 600 Intake: Oral 800 600 Other: Voiding Method Bedside Commode Bedside Commode # Voids 2 3 # Bowel Movements 2 1 - Exam - Constitutional General appearance: average body habitus, cooperative, disheveled - EENT Eyes: PERRLA ENT: hearing grossly normal Ears: bilateral: normal - Neck Neck: normal ROM Carotids: bilateral: upstroke normal Thyroid: bilateral: normal size - Respiratory Respiratory: bilateral: diminished - Cardiovascular Rhythm: regular Heart sounds: normal: S1, S2 - Gastrointestinal General gastrointestinal: decreased bowel sounds - Integumentary Integumentary: normal turgor - Neurologic Neurologic: CNII-XII intact - Musculoskeletal Musculoskeletal: gait normal, generalized weakness, strength equal bilaterally - Psychiatric Psychiatric: A&O x's 3, appropriate affect, intact judgment & insight CBC & Chem 7: 05/17/20 05:10 05/17/20 05:10 Labs: Abnormal Lab Results - Last 24 Hours (Table) 05/16/20 05/16/20 05/17/20 Range/Units 16:59 20:23 05:10 Plt Count 122 L (150-450) k/uL Lymphocytes # 0.6 L (1.0-4.8) k/uL Sodium (135-145) mmol/L BUN/Creatinine Ratio (12.00-20.00) Ratio Glucose (70-110) mg/dL POC Glucose (mg/dL) 330 H 360 H (75-99) mg/dL Calcium (8.7-10.3) mg/dL AST (13-35) U/L ALT (8-44) U/L Total Protein (6.2-8.2) g/dL Albumin (3.80-4.90) g/dL 05/17/20 05/17/20 05/17/20 Range/Units 05:10 07:04 11:35 Plt Count (150-450) k/uL Lymphocytes # (1.0-4.8) k/uL Sodium 132 L (135-145) mmol/L BUN/Creatinine Ratio 31.67 H (12.00-20.00) Ratio Glucose 272 H (70-110) mg/dL POC Glucose (mg/dL) 230 H 313 H (75-99) mg/dL Calcium 8.5 L (8.7-10.3) mg/dL AST 49 H (13-35) U/L ALT 69 H (8-44) U/L Total Protein 5.3 L (6.2-8.2) g/dL Albumin 3.50 L (3.80-4.90) g/dL Assessment: Acute hypoxic respiratory failure Covid 19 pneumonia Community-acquired pneumonia/secondary bacterial pneumonia Uncontrolled diabetes Hypertension hypertensive cardiovascular disease Hypothyroidism Lipidemia Generalized anxiety disorder Patient Condition at Discharge: Fair Plan - Discharge Summary Discharge Rx Participant: No New Discharge Prescriptions: New Multivitamins, Thera [Multivitamin (formulary)] 1 each PO Q24H #30 tab Ascorbic Acid [Vitamin C] 1,000 mg PO Q24H 30 Days #30 tab Cholecalciferol [Vitamin D3 (25 Mcg = 1000 Iu)] 1,000 unit PO Q24H #30 tab ALPRAZolam [Xanax] 0.25 mg PO TID PRN #30 tab PRN Reason: Anxiety Continue FLUoxetine HCL [PROzac] 20 mg PO DAILY Rosuvastatin [Crestor] 20 mg PO HS metFORMIN HCL [Glucophage] 500 mg PO DAILY Nystatin 100,000 Unit/ml Susp [Mycostatin Oral Susp] 500,000 unit PO QID Nitroglycerin Sl Tabs [Nitrostat] 0.4 mg SL Q5M PRN PRN Reason: Chest Pain Levothyroxine Sodium [Synthroid] 50 mcg PO DAILY Latanoprost [Xalatan 0.005%] 1 drop BOTH EYES HS Diltiazem HCl [Cardizem CD] 240 mg PO DAILY Discharge Medication List FLUoxetine HCL [PROzac] 20 mg PO DAILY 02/08/18 [History] Rosuvastatin [Crestor] 20 mg PO HS 02/08/18 [History] Diltiazem HCl [Cardizem CD] 240 mg PO DAILY 05/05/20 [History] Latanoprost [Xalatan 0.005%] 1 drop BOTH EYES HS 05/05/20 [History] Levothyroxine Sodium [Synthroid] 50 mcg PO DAILY 05/05/20 [History] Nitroglycerin Sl Tabs [Nitrostat] 0.4 mg SL Q5M PRN 05/05/20 [History] Nystatin 100,000 Unit/ml Susp [Mycostatin Oral Susp] 500,000 unit PO QID 05/05/20 [History] metFORMIN HCL [Glucophage] 500 mg PO DAILY 05/05/20 [History] ALPRAZolam [Xanax] 0.25 mg PO TID PRN #30 tab 05/18/20 [Rx] Ascorbic Acid [Vitamin C] 1,000 mg PO Q24H 30 Days #30 tab 05/18/20 [Rx] Cholecalciferol [Vitamin D3 (25 Mcg = 1000 Iu)] 1,000 unit PO Q24H #30 tab 05/18/20 [Rx] Multivitamins, Thera [Multivitamin (formulary)] 1 each PO Q24H #30 tab 05/18/20 [Rx] Follow up Appointment(s)/Referral(s): Markie Coates MD [Primary Care Provider] - 1-2 days [facility], [NON-STAFF] - Discharge/Stand Alone Forms: Who Do I Call?, Help In The Home Discharge Disposition: HOME WITH HOME HEALTH SERVICES
[2020-05-18 12:22] LABS: Glucose,Whole Blood 262 mg/dL (75-99)
[2020-05-18 12:48] VITALS: BP 120/63; PULSE 69; RESP 18; TEMP 97.9
--- NOTE | 2020-05-19 08:33 | CDI ---
Documentation Clarification Form Date: 05/19/20 From: Elidia Florian Phone: If you have a question about this query, please contact Cindy Francisco, Consumer Attorney at [phone] between 8am and 5pm. Admit Date: 05/05/2020 12:04:00 PM Patient Name: Yasmeen Cabello Visit Number: [id number] Discharge Date: 05/18/2020 04:42:00 PM ATTENTION: The Clinical Documentation Specialists (CDI) and [facility] Coding Staff appreciate your assistance in clarifying documentation. Please respond to the clarification below the line at the bottom and electronically sign. The CDI & [facility] Coding staff will review the response and follow-up if needed. Please note: Queries are made part of the Legal Health Record. If you have any questions, please contact the author of this message via ITS. Dr. Keith Jackman, The patient has uncontrolled Type II diabetes, as indicated in the H&P, DS and progress notes. POC Glucose: 178, 329, 340, 261, 202, 225, 279, 269, 152, 172, 259, 175, 206, 214, 462, 337 (05/05-05/10) Glucose: 146, 190, 272 Treatment: blood glucose monitoring ACHS, consistent carbohydrate diet, Insulin and Glucophage Per [facility] 2016 - query the provider for clarification whether the patient has hyperglycemia or hypoglycemia so that the appropriate code may be reported - uncontrolled diabetes indicates that the patient's blood sugar is not at an acceptable level, because it is either too high or too low. In order to capture the severity of Illness and necessary documentation specificity, please clarify if Type 2 uncontrolled diabetes is: Hyperglycemia MTDD
== END 2020-05-18 16:42 | disposition home health service (06) | DRG 177 ==
LOC: EC 10:28 → 6NMEDSUR 12:04
PROVIDERS: ADMIT Internal Medicine Sleep Medicine; ATTEND Internal Medicine Sleep Medicine
PROC: 5A0955A Assistance with Respiratory Ventilation, Greater than 96 Consecutive Hours, High Flow/Velocity Cannula (ICD-10-PCS; 2020-05-05)
PROC: XW033E5 Introduction of Remdesivir Anti-infective into Peripheral Vein, Percutaneous Approach, New Technology Group 5 (ICD-10-PCS; principal; 2020-05-06)
DX: U07.1 COVID-19 (principal); J96.01 Acute respiratory failure with hypoxia; J15.9 Unspecified bacterial pneumonia; J12.82 Pneumonia due to coronavirus disease 2019; J44.1 Chronic obstructive pulmonary disease with (acute) exacerbation; J44.0 Chronic obstructive pulmonary disease with (acute) lower respiratory infection; E11.65 Type 2 diabetes mellitus with hyperglycemia; I11.9 Hypertensive heart disease without heart failure; E03.9 Hypothyroidism, unspecified; F32.9 Major depressive disorder, single episode, unspecified; K21.9 Gastro-esophageal reflux disease without esophagitis; E78.5 Hyperlipidemia, unspecified; E87.6 Hypokalemia; F41.1 Generalized anxiety disorder; M54.31 Sciatica, right side; H35.342 Macular cyst, hole, or pseudohole, left eye; M19.90 Unspecified osteoarthritis, unspecified site; Z79.890 Hormone replacement therapy; Z79.84 Long term (current) use of oral hypoglycemic drugs; Z79.899 Other long term (current) drug therapy; Z87.891 Personal history of nicotine dependence; Z90.11 Acquired absence of right breast and nipple; Z87.01 Personal history of pneumonia (recurrent); Z85.3 Personal history of malignant neoplasm of breast; Z85.828 Personal history of other malignant neoplasm of skin; Z90.49 Acquired absence of other specified parts of digestive tract; Z92.21 Personal history of antineoplastic chemotherapy; Z90.710 Acquired absence of both cervix and uterus; Z87.39 Personal history of other diseases of the musculoskeletal system and connective tissue; Z98.42 Cataract extraction status, left eye; Z98.41 Cataract extraction status, right eye; Z87.42 Personal history of other diseases of the female genital tract; Z87.440 Personal history of urinary (tract) infections; Z87.11 Personal history of peptic ulcer disease; Z98.890 Other specified postprocedural states; Z88.6 Allergy status to analgesic agent; Z88.5 Allergy status to narcotic agent; Z80.0 Family history of malignant neoplasm of digestive organs; Z81.8 Family history of other mental and behavioral disorders
CPT/HCPCS: 36415; 71045; 71275; 80048; 80053; 82728; 83036; 83605; 83615; 83735; 84145; 84484; 85025; 85379; 85610; 85730; 86140; 87040; 87070; 87205; 87635; 93005; 94640; 94760; 96374; 99285

== ENCOUNTER 2022-11-12 19:00 | Emergency (ER) | payer MEDICARE, BC ==
[2022-11-12 19:43] VITALS: TEMP 97.5
[2022-11-12] MEDS ORDERED: SODIUM CHLORIDE 0.9% 500 ML 500 ML IV ONE (19:49)
[2022-11-12] MEDS ORDERED: KETOROLAC 15 MG/ML 1 ML VIAL IVP STA (19:49)
[2022-11-12 20:26] LABS: Basophils % (A) 1 %; Eosinophils # (A) 0.3 k/uL (0-0.7); Eosinophils % (A) 4 %; HGB 14.9 gm/dL (11.4-16.0); Lymphocytes # (A) 1.3 k/uL (1.0-4.8); Lymphocytes % (A) 20 %; MCH 29.3 pg (25.0-35.0); MCHC 32.4 g/dL (31.0-37.0); MCV 90.4 fL (80.0-100.0); Mean Platelet Volume 7.8; Monocytes # (A) 0.5 k/uL (0-1.0); Monocytes % (A) 8 %; Neutrophils # (A) 4.6 k/uL (1.3-7.7); Neutrophils % (A) 68 %; Platelet Count 293 k/uL (150-450); RBC 5.09 m/uL (3.80-5.40); RDW 13.7 % (11.5-15.5); WBC 6.8 k/uL (3.8-10.6)
--- NOTE | 2022-11-12 20:27 | ED ---
General Adult HPI - General Chief complaint: Back Pain/Injury Stated complaint: back pain,lower abd pain Time Seen by Provider: 11/12/22 19:29 Source: patient, RN notes reviewed Mode of arrival: ambulatory Limitations: no limitations - History of Present Illness Initial comments: 82-year-old female with no significant past medical history presents to the emergency department with a chief complaint of fluid. There is restricted last week. She rates the pain 10 out of 10. She reports that it radiates to her left lower back to the left lower quadrant. She is complaining of accompanying symptoms of nausea however has not vomited. She denies any fever, chills, chest pain, shortness of breath, abdominal pain, dysuria, hematuria. She is not taken anything for his symptoms. - Related Data Home Medications Medication Instructions Recorded Confirmed FLUoxetine HCL [PROzac] 20 mg PO DAILY 02/08/18 05/05/20 Rosuvastatin [Crestor] 20 mg PO HS 02/08/18 05/05/20 Latanoprost [Xalatan 0.005%] 1 drop BOTH EYES HS 05/05/20 05/05/20 Levothyroxine Sodium [Synthroid] 50 mcg PO DAILY 05/05/20 05/05/20 Nitroglycerin Sl Tabs [Nitrostat] 0.4 mg SL Q5M PRN 05/05/20 05/05/20 Nystatin 100,000 Unit/ml Susp 500,000 unit PO QID 05/05/20 05/05/20 [Mycostatin Oral Susp] dilTIAZem HCL [Cardizem CD] 240 mg PO DAILY 05/05/20 05/05/20 metFORMIN HCL [Glucophage] 500 mg PO DAILY 05/05/20 05/05/20 Previous Rx's Medication Instructions Recorded ALPRAZolam [Xanax] 0.25 mg PO TID PRN #30 tab 05/18/20 Ascorbic Acid [Vitamin C] 1,000 mg PO Q24H 30 Days #30 tab 05/18/20 Cholecalciferol [Vitamin D3 (25 1,000 unit PO Q24H #30 tab 05/18/20 Mcg = 1000 Iu)] Multivitamins, Thera [Multivitamin 1 each PO Q24H #30 tab 05/18/20 (formulary)] Cephalexin [Keflex] 500 mg PO BID #14 cap 11/12/22 Ibuprofen [Motrin] 800 mg PO Q6HR #30 tab 11/12/22 Lidocaine 5% Patch [Lidoderm 5% 1 patch TOPICAL DAILY #10 patch 11/12/22 Patch] Allergies Allergy/AdvReac Type Severity Reaction Status Date / Time acetaminophen [From Vicodin] AdvReac Vomiting Verified 05/05/20 10:50 codeine AdvReac Vomiting Verified 05/05/20 10:50 hydrocodone [From Vicodin] AdvReac Vomiting Verified 05/05/20 10:50 Review of Systems ROS Statement: Those systems with pertinent positive or pertinent negative responses have been documented in the HPI. ROS Other: All systems not noted in ROS Statement are negative. Past Medical History Past Medical History: Cancer, Chest Pain / Angina, COPD, Diabetes Mellitus, Eye Disorder, GERD/Reflux, Hyperlipidemia, Hypertension, Osteoarthritis (OA), Pneumonia, Respiratory Disorder, Thyroid Disorder Additional Past Medical History / Comment(s): Pt states she received + covid results on 05/02/20 at a [facility] across from [facility]. 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 History of Any Multi-Drug Resistant Organisms: None Reported Past Surgical History: Breast Surgery, Cholecystectomy, Heart Catheterization, Hysterectomy, Orthopedic Surgery Additional Past Surgical History / Comment(s): R mastectomy, R shoulder arthroscopy, R shoulder benign tumor removed, R knee arthroscopy, renal biopsy- pt cannot recall reason, L eye macular hole with repair, bilateral cataract removals, colonoscopies, R inguinal hernia repair, pt thinks she has had a bronchoscopy in the past. Past Anesthesia/Blood Transfusion Reactions: Previous Problems w/ Anesthesia Additional Past Anesthesia/Blood Transfusion Reaction / Comment(s): Hard time waking up X1. Past Psychological History: Depression Smoking Status: Former smoker - Past Family History Mother Family Medical History: Dementia Father Family Medical History: Cancer Additional Family Medical History / Comment(s): Colon cancer. Sister(s) Family Medical History: Cancer Additional Family Medical History / Comment(s): colon cancer. General Exam - General Exam Comments Initial Comments: General: Alert, in no acute distress Head: atraumatic normocephalic. Eyes PERRL, EOMI intact, mucous membranes moist Respiratory: Lungs clear to auscultation bilaterally Cardiovascular: Heart rate regular rate and rhythm Abdominal: Soft without guarding or rebound Extremities: Normal inspection with full range of motion and normal capillary refill Neuroogic: alert and oriented 3, CN II-XII intact, able to ambulate with steady gait Skin: warm dry and intact with normal color Limitations: no limitations Course Vital Signs 11/12/22 11/12/22 11/12/22 19:12 19:40 22:24 Temperature 97.7 F 97.5 F L Pulse Rate 80 74 67 Respiratory 16 20 18 Rate Blood Pressure 160/82 182/117 158/84 O2 Sat by Pulse 92 L 95 93 L Oximetry Medical Decision Making - Medical Decision Making Was pt. sent in by a medical professional or institution (, PA, PROTECTIVE SIGNAL INSTALLER HELPER, urgent care, hospital, or intermediate...) When possible be specific @ -[No] Did you speak to anyone other than the patient for history (EMS, parent, family, police, friend...)? What history was obtained from this source @ -[No] Did you review nursing and triage notes (agree or disagree)? Why? @ -[I reviewed and agree with nursing and triage notes] Were old charts reviewed (outside hosp., previous admission, EMS record, old EKG, old radiological studies, urgent care reports/EKG's, intermediate records)? Report findings @ -[No old charts were reviewed] Differential Diagnosis (chest pain, altered mental status, abdominal pain women, abdominal pain men, vaginal bleeding, weakness, fever, dyspnea, syncope, headache, dizziness, GI bleed, back pain, seizure, CVA, palpatations, mental health, musculoskeletal)? @ -[not applicable] EKG interpreted by me (3pts min.). @ -[As above] X-rays interpreted by me (1pt min.). @ -[None done] CT interpreted by me (1pt min.). @ -CT abdomen and pelvis reveals 2 mm stone in bladder with mild inflammatory changes U/S interpreted by me (1pt. min.). @ -[None done] What testing was considered but not performed or refused? (CT, X-rays, U/S, labs)? Why? @ -[None] What meds were considered but not given or refused? Why? @ -[None] Did you discuss the management of the patient with other professionals (professionals i.e. , ASHISH, PROTECTIVE SIGNAL INSTALLER HELPER, lab, RT, psych nurse, social scientist, service coordinator, t eacher, national insurance officer, case reviewer)? Give summary @ -[No] Was smoking cessation discussed for >3mins.? @ -[No] Was critical care preformed (if so, how long)? @ -[No] Were there social determinants of health that impacted care today? How? (Homelessness, low income, unemployed, alcoholism, drug addiction, transportation, low edu. Level, literacy, decrease access to med. care, half-way, r ehab)? @ -[No] Was there de-escalation of care discussed even if they declined (Discuss DNR or withdrawal of care, Hospice)? DNR status @ -[No] What co-morbidities impacted this encounter? (DM, HTN, Smoking, COPD, CAD, Cance r, CVA, ARF, Chemo, Hep., AIDS, mental health diagnosis, sleep apnea, morbid obesity)? @ -[None] Was patient admitted / discharged? Hospital course, mention meds given and route, prescriptions, significant lab abnormalities, going to OR and other pertinent info. @ -Discharged. This is a pleasant 82-year-old female who presents to the emergency department with back pain. Patient had thorough history and physical exam performed on the ED. Physical exam is essentially unremarkable. Patient able to move all extremities freely. Mild lumbar paraspinal tenderness. No step-off or midline tenderness Patient had imaging performed in the ED which was essentially negative. I discussed the results in detail with the patient verbalized understanding and all questions were addressed. Return precautions were discussed at length. Patient was discharged home in stable condition. With recommend close follow-up in 1-2 days with PCP. I discussed the case with TEA Katz who agrees with plan of care Undiagnosed new problem with uncertain prognosis? @ -[No] Drug Therapy requiring intensive monitoring for toxicity (Heparin, Nitro, Insulin, Cardizem)? @ -[No] Were any procedures done? @ -[No] Diagnosis/symptom? @ -Low Back pain Acute, or Chronic, or Acute on Chronic? @ -Acute Uncomplicated (without systemic symptoms) or Complicated (systemic symptoms)? @ -Uncomplicated Side effects of treatment? @ -[No] Exacerbation, Progression, or Severe Exacerbation? @ -[No] Poses a threat to life or bodily function? How? (Chest pain, [place], [place], pneumonia, PE, COPD, DKA, ARF, appy, cholecystitis, CVA, Diverticulitis, Homicidal, Suicidal, threat to staff... and all critical care pts) @ -Low Likelihood - Lab Data Result diagrams: 11/12/22 20:02 11/12/22 20:02 Lab Results 11/12/22 11/12/22 11/12/22 Range/Units 20:02 20:02 21:12 WBC 6.8 (3.8-10.6) k/uL RBC 5.09 (3.80-5.40) m/uL Hgb 14.9 (11.4-16.0) gm/dL Hct 46.0 (34.0-46.0) % MCV 90.4 (80.0-100.0) fL MCH 29.3 (25.0-35.0) pg MCHC 32.4 (31.0-37.0) g/dL RDW 13.7 (11.5-15.5) % Plt Count 293 (150-450) k/uL MPV 7.8 Neutrophils % 68 % Lymphocytes % 20 % Monocytes % 8 % Eosinophils % 4 % Basophils % 1 % Neutrophils # 4.6 (1.3-7.7) k/uL Lymphocytes # 1.3 (1.0-4.8) k/uL Monocytes # 0.5 (0-1.0) k/uL Eosinophils # 0.3 (0-0.7) k/uL Basophils # 0.0 (0-0.2) k/uL Sodium 138 (137-145) mmol/L Potassium 4.0 (3.5-5.1) mmol/L Chloride 103 (98-107) mmol/L Carbon Dioxide 23 (22-30) mmol/L Anion Gap 12 mmol/L BUN 15 (7-17) mg/dL Creatinine 0.69 (0.52-1.04) mg/dL Est GFR (CKD-EPI)AfAm >90 (>60 ml/min/1.73 sqM) Est GFR (CKD-EPI)NonAf 80 (>60 ml/min/1.73 sqM) Glucose 89 (74-99) mg/dL Calcium 9.9 (8.4-10.2) mg/dL Total Bilirubin 1.1 (0.2-1.3) mg/dL AST 32 (14-36) U/L ALT 18 (4-34) U/L Alkaline Phosphatase 75 (38-126) U/L Total Protein 7.7 (6.3-8.2) g/dL Albumin 4.3 (3.5-5.0) g/dL Urine Color Yellow Urine Appearance Clear (Clear) Urine pH 5.5 (5.0-8.0) Ur Specific [place] 1.018 (1.001-1.035) Urine Protein Negative (Negative) Urine Glucose (UA) Negative (Negative) Urine Ketones Negative (Negative) Urine Blood Negative (Negative) Urine Nitrite Negative (Negative) Urine Bilirubin Negative (Negative) Urine Urobilinogen 2.0 (<2.0) mg/dL Ur Leukocyte Esterase Large H (Negative) Urine RBC 4 (0-5) /hpf Urine WBC 36 H (0-5) /hpf Ur Squamous Epith Cells 2 (0-4) /hpf Urine Bacteria Rare H (None) /hpf Urine Mucus Rare H (None) /hpf Disposition Clinical Impression: Mechanical back pain, Urinary tract infection Disposition: HOME SELF-CARE Condition: Stable Instructions (If sedation given, give patient instructions): Acute Low Back Pain (ED) Additional Instructions: Please return to the nearest emergency department with symptoms worsen or persist Prescriptions: Cephalexin [Keflex] 500 mg PO BID #14 cap Lidocaine 5% Patch [Lidoderm 5% Patch] 1 patch TOPICAL DAILY #10 patch Ibuprofen [Motrin] 800 mg PO Q6HR #30 tab Is patient prescribed a controlled substance at d/c from ED?: No Referrals: Markie Coates MD [Primary Care Provider] - 1-2 days Time of Disposition: 22:07
--- NOTE | 2022-11-12 20:31 | CT ---
EXAMINATION TYPE: CT abdomen pelvis wo con CT DLP: 510.9 mGycm, Automated exposure control for dose reduction was used. DATE OF EXAM: 11/12/2022 8:20 PM COMPARISON: No relevant priors. CLINICAL INDICATION:Female, 82 years old with history of Low back pain, LLQ pain; c/o flank pain TECHNIQUE: Axial CT of the abdomen and pelvis. Sagittal and coronal reformats were created on a [employer] workstation. Contrast used: None Oral contrast used: without Oral Contrast FINDINGS: LOWER CHEST: Left lower lobe 4 mm groundglass nodule (series 201, image 23). Bibasilar atelectasis. R ight posterior fat-containing diaphragmatic hernia. ABDOMEN LIVER: Nodular contour hepatic steatosis. GALLBLADDER AND BILE DUCTS: The gallbladder is surgically absent. PANCREAS: Within normal limits for technique. SPLEEN: Unremarkable. ADRENAL GLANDS: Unremarkable. KIDNEYS AND URETERS: No evidence of hydronephrosis or renal calculus. The ureters are unremarkable. PELVIS BLADDER: Layering 2 mm calculus in the left lower urinary bladder (series 201, image 123). No perives icular inflammatory changes. Minimal wall thickening. REPRODUCTIVE: Unremarkable. ABDOMEN & PELVIS STOMACH AND BOWEL: Small hiatal hernia, duodenum is unremarkable. Scattered diverticula are noted thr oughout the colon. No evidence of bowel obstruction. PERITONEUM: No evidence of pneumoperitoneum or free fluid. VASCULATURE: Severe atherosclerotic calcifications are present throughout the abdominal aorta and its branches. No evidence of aortic aneurysm. MUSCULOSKELETAL: No acute osseous abnormalities. Mild disc degeneration changes are present throughou t the thoracolumbar spine. Mild levoscoliotic curvature. Degenerative changes of the hip joints bilat erally. LYMPH NODES: No gross evidence for lymphadenopathy. SOFT TISSUE/ABDOMINAL WALL: Subcentimeter fat-containing umbilical hernia. Fat-containing bilateral i nguinal hernias, left greater than right. IMPRESSION: 1. Layering 2 mm calculus within the urinary bladder, suspected to relate to recently expelled nephr olithiasis. Circumferential bladder wall thickening which is likely reactive. Correlate with urinalys is findings to exclude acute cystitis. 2. Cirrhotic morphology of the liver with hepatic steatosis. 3. Additional incidental findings as detailed above.
[2022-11-12 20:48] LABS: ALT 18 U/L (4-34); AST 32 U/L (14-36); African American GFR (CKD) >90 (>60 ml/min/1.73 sqM); Albumin 4.3 g/dL (3.5-5.0); Alkaline Phosphatase 75 U/L (38-126); Anion Gap 12 mmol/L; Blood Urea Nitrogen 15 mg/dL (7-17); Calcium 9.9 mg/dL (8.4-10.2); Carbon Dioxide 23 mmol/L (22-30); Chloride 103 mmol/L (98-107); Glucose 89 mg/dL (74-99); Non-African American GFR(CKD) 80 (>60 ml/min/1.73 sqM); Sodium 138 mmol/L (137-145); Total Bilirubin 1.1 mg/dL (0.2-1.3); Total Protein 7.7 g/dL (6.3-8.2)
[2022-11-12] MEDS ORDERED: IBUPROFEN 800 MG TAB PO STA (21:37)
[2022-11-12 21:41] LABS: Appearance,Urine Clear (Clear); Bacteria,Urine Rare /hpf; Bilirubin,Urine Negative (Negative); Blood,Urine Negative (Negative); Color,Urine Yellow; Glucose,Urine (UA) Negative (Negative); Ketones,Urine Negative (Negative); Leukocyte Esterase,Urine Large (Negative); Mucus,Urine Rare /hpf; Nitrite,Urine Negative (Negative); PH, Urine 5.5 (5.0-8.0); Protein,Urine Negative (Negative); RBC,Urine 4 /hpf (0-5); Specific Gravity,Urine 1.018 (1.001-1.035); Squamous Epithelial Cell,Urine 2 /hpf (0-4); WBC,Urine 36 /hpf (0-5)
[2022-11-12] MEDS ORDERED: LIDOCAINE 5% PATCH TOPICAL SCH (21:45)
[2022-11-12] MEDS ORDERED: CEPHALEXIN 500 MG CAP PO STA ×2 (22:04→22:20)
[2022-11-12] MEDS ORDERED: IBUPROFEN 600 MG STARTER PACK 4 TAB BTL PO STA (22:05)
[2022-11-12 22:24] VITALS: BP 158/84; PULSE 67; RESP 18
== END 2022-11-12 22:42 | disposition home or self-care (01) ==
LOC: EC 19:00
DX: M54.50 Low back pain, unspecified (principal); N39.0 Urinary tract infection, site not specified; K76.0 Fatty (change of) liver, not elsewhere classified; E03.9 Hypothyroidism, unspecified; E11.9 Type 2 diabetes mellitus without complications; E78.5 Hyperlipidemia, unspecified; F32.A Depression, unspecified; I10 Essential (primary) hypertension; J44.9 Chronic obstructive pulmonary disease, unspecified; K21.9 Gastro-esophageal reflux disease without esophagitis; M19.90 Unspecified osteoarthritis, unspecified site; Z79.84 Long term (current) use of oral hypoglycemic drugs; Z79.890 Hormone replacement therapy; Z79.899 Other long term (current) drug therapy; Z88.5 Allergy status to narcotic agent; Z88.8 Allergy status to other drugs, medicaments and biological substances; Z87.891 Personal history of nicotine dependence; Z90.49 Acquired absence of other specified parts of digestive tract; Z86.16 Personal history of COVID-19
CPT/HCPCS: 36415; 80053; 85025; 81001; 74176; 99284; 96374; J1885

== ENCOUNTER 2023-05-24 18:54 | Inpatient (IN) | payer MEDICARE, BC ==
[2023-05-24] MEDS ORDERED: NALOXONE 0.4 MG/ML 1 ML VIAL IV PRN (19:38)
--- NOTE | 2023-05-24 20:02 | ED ---
General Adult HPI - General Chief complaint: Recheck/Abnormal Lab/Rx Stated complaint: Nausea, Vomiting Time Seen by Provider: 05/24/23 19:10 Source: patient, EMS, RN notes reviewed, old records reviewed Mode of arrival: EMS - History of Present Illness Initial comments: 82 female transferred from [facility] with concern for new onset CHF. she had elevated BNP at 8000 and chest x-ray showing cardiomegaly and trace effusions. She was sent to this institution for echo and cardiology consultation. Her initial complaint had been nausea and vomiting which is an ongoing issue for the past several months. She has no prior history of CHF. She has no lower extremity edema. No chest pain. - Related Data Home Medications Medication Instructions Recorded Confirmed FLUoxetine HCL [PROzac] 20 mg PO DAILY 02/08/18 05/05/20 Rosuvastatin [Crestor] 20 mg PO HS 02/08/18 05/05/20 Latanoprost [Xalatan 0.005%] 1 drop BOTH EYES HS 05/05/20 05/05/20 Levothyroxine Sodium [Synthroid] 50 mcg PO DAILY 05/05/20 05/05/20 Nitroglycerin Sl Tabs [Nitrostat] 0.4 mg SL Q5M PRN 05/05/20 05/05/20 Nystatin 100,000 Unit/ml Susp 500,000 unit PO QID 05/05/20 05/05/20 [Mycostatin Oral Susp] dilTIAZem HCL [Cardizem CD] 240 mg PO DAILY 05/05/20 05/05/20 metFORMIN HCL [Glucophage] 500 mg PO DAILY 05/05/20 05/05/20 Previous Rx's Medication Instructions Recorded ALPRAZolam [Xanax] 0.25 mg PO TID PRN #30 tab 05/18/20 Ascorbic Acid [Vitamin C] 1,000 mg PO Q24H 30 Days #30 tab 05/18/20 Cholecalciferol [Vitamin D3 (25 1,000 unit PO Q24H #30 tab 05/18/20 Mcg = 1000 Iu)] Multivitamins, Thera [Multivitamin 1 each PO Q24H #30 tab 05/18/20 (formulary)] Cephalexin [Keflex] 500 mg PO BID #14 cap 11/12/22 Ibuprofen [Motrin] 800 mg PO Q6HR #30 tab 11/12/22 Lidocaine 5% Patch [Lidoderm 5% 1 patch TOPICAL DAILY #10 patch 11/12/22 Patch] Allergies Allergy/AdvReac Type Severity Reaction Status Date / Time acetaminophen [From Vicodin] AdvReac Vomiting Verified 05/05/20 10:50 codeine AdvReac Vomiting Verified 05/05/20 10:50 hydrocodone [From Vicodin] AdvReac Vomiting Verified 05/05/20 10:50 Review of Systems ROS Statement: Those systems with pertinent positive or pertinent negative responses have been documented in the HPI. ROS Other: All systems not noted in ROS Statement are negative. Past Medical History Past Medical History: Cancer, Chest Pain / Angina, Heart Failure, COPD, Diabetes Mellitus, Eye Disorder, GERD/Reflux, Hyperlipidemia, Hypertension, Osteoarthritis (OA), Pneumonia, Respiratory Disorder, Thyroid Disorder Additional Past Medical History / Comment(s): Pt states she received + covid results on 05/02/20 at a [facility] across from [facility]. 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 History of Any Multi-Drug Resistant Organisms: None Reported Past Surgical History: Breast Surgery, Cholecystectomy, Heart Catheterization, Hysterectomy, Orthopedic Surgery Additional Past Surgical History / Comment(s): R mastectomy, R shoulder arthroscopy, R shoulder benign tumor removed, R knee arthroscopy, renal biopsy- pt cannot recall reason, L eye macular hole with repair, bilateral cataract removals, colonoscopies, R inguinal hernia repair, pt thinks she has had a bronchoscopy in the past. Past Anesthesia/Blood Transfusion Reactions: Previous Problems w/ Anesthesia Additional Past Anesthesia/Blood Transfusion Reaction / Comment(s): Hard time waking up X1. Past Psychological History: Depression Smoking Status: Former smoker Past Alcohol Use History: Rare Past Drug Use History: None Reported - Past Family History Mother Family Medical History: Dementia Father Family Medical History: Cancer Additional Family Medical History / Comment(s): Colon cancer. Sister(s) Family Medical History: Cancer Additional Family Medical History / Comment(s): colon cancer. Course Vital Signs 05/24/23 18:56 Temperature 97.3 F L Pulse Rate 77 Respiratory 20 Rate Blood Pressure 112/85 O2 Sat by Pulse 93 L Oximetry - Reevaluation(s) Reevaluation #1: 05/24/23 20:01 Laboratory tests will be repeated, results pending Medical Decision Making - Medical Decision Making Was pt. sent in by a medical professional or institution (, ASHISH, HEARING AID ASSISTANT, urgent care, hospital, or half-way...) When possible be specific @ -No Did you speak to anyone other than the patient for history (EMS, parent, family, police, friend...)? What history was obtained from this source @ -No Did you review nursing and triage notes (agree or disagree)? Why? @ -I reviewed and agree with nursing and triage notes Were old charts reviewed (outside hosp., previous admission, EMS record, old EKG, old radiological studies, urgent care reports/EKG's, half-way records)? Report findings @ -No old charts were reviewed Differential Diagnosis (chest pain, altered mental status, abdominal pain women, abdominal pain men, vaginal bleeding, weakness, fever, dyspnea, syncope, headache, dizziness, GI bleed, back pain, seizure, CVA, palpatations, mental health, musculoskeletal)? @ -Differential Dyspnea: Coronary syndrome, arrhythmia, tamponade, asthma, COPD, pulmonary embolism, pneumonia, pneumothorax, pulmonary effusion, anaphylaxis, diabetic ketoacidosis, flailed chest, pulmonary contusion, diaphragmatic rupture, anemia, neuromuscular, this is not meant to be an all-inclusive list. EKG interpreted by me (3pts min.). @ Sinus rhythm rate of 79, NE interval 156, QRS duration 73, QTC [address] segment elevation. X-rays interpreted by me (1pt min.). @ -None done CT interpreted by me (1pt min.). @ -None done U/S interpreted by me (1pt. min.). @ -None done What testing was considered but not performed or refused? (CT, X-rays, U/S, labs)? Why? @ -None What meds were considered but not given or refused? Why? @ -None Did you discuss the management of the patient with other professionals (professionals i.e. , ASHISH, HEARING AID ASSISTANT, lab, RT, psych nurse, social services director, package car driver, teacher, airfield services officer, director of casework)? Give summary @ Dr. Almeida Was smoking cessation discussed for >3mins.? @ -No Was critical care preformed (if so, how long)? @ -No Were there social determinants of health that impacted care today? How? (Homelessness, low income, unemployed, alcoholism, drug addiction, transportation, low edu. Level, literacy, decrease access to med. care, fci, rehab)? @ -No Was there de-escalation of care discussed even if they declined (Discuss DNR or withdrawal of care, Hospice)? DNR status @ -No What co-morbidities impacted this encounter? (DM, HTN, Smoking, COPD, CAD, Cancer, CVA, ARF, Chemo, Hep., AIDS, mental health diagnosis, sleep apnea, morbid obesity)? @ -[COPD Was patient admitted / discharged? Hospital course, mention meds given and route, prescriptions, significant lab abnormalities, going to OR and other pertinent info. @ -[82-year-old female transferred from outside facility with elevated BNP and concern for new onset heart failure. Patient had went to the emergency department with complaints of nausea vomiting and was noted to have a chest x- ray with pleural effusion and elevated BNP. She does have chronic dyspnea and wears 3 L of home O2 secondary to COPD at baseline. She has no increased oxygen requirement. She feels well at the time my evaluation. She will be admitted for repeat laboratory testing and echo which will be obtained in the morning. Her jelly filter tender is placed on consult. Undiagnosed new problem with uncertain prognosis? @ -No Drug Therapy requiring intensive monitoring for toxicity (Heparin, Nitro, Insulin, Cardizem)? @ -No Were any procedures done? @ -No Diagnosis/symptom? @ -New-onset CHF Acute, or Chronic, or Acute on Chronic? @ -[Acute Uncomplicated (without systemic symptoms) or Complicated (systemic symptoms)? @ -default Side effects of treatment? @ -No Exacerbation, Progression, or Severe Exacerbation? @ -No Poses a threat to life or bodily function? How? (Chest pain, [place], [place], pneumonia, PE, COPD, DKA, ARF, appy, cholecystitis, CVA, Diverticulitis, Homicidal, Suicidal, threat to staff... and all critical care pts) @ Yes, CHF Disposition Clinical Impression: New onset of congestive heart failure Disposition: ADMITTED IP TO THIS HOSP Condition: Stable Is patient prescribed a controlled substance at d/c from ED?: No Referrals: Teresa Pratt MD [Primary Care Provider] - 1-2 days Time of Disposition: 20:02
[2023-05-24 20:04] LABS: Basophils # (A) 0.1 k/uL (0-0.2); Basophils % (A) 1 %; Eosinophils # (A) 0.1 k/uL (0-0.7); Eosinophils % (A) 1 %; HCT 47.2 % (34.0-46.0); HGB 15.1 gm/dL (11.4-16.0); Hypochromasia Slight; Lymphocytes # (A) 1.1 k/uL (1.0-4.8); Lymphocytes % (A) 13 %; MCH 29.9 pg (25.0-35.0); MCHC 31.9 g/dL (31.0-37.0); MCV 93.7 fL (80.0-100.0); Mean Platelet Volume 8.5; Monocytes # (A) 0.5 k/uL (0-1.0); Monocytes % (A) 6 %; Neutrophils # (A) 6.6 k/uL (1.3-7.7); Neutrophils % (A) 78 %; Platelet Count 195 k/uL (150-450); RBC 5.04 m/uL (3.80-5.40); RDW 13.5 % (11.5-15.5); WBC 8.5 k/uL (3.8-10.6)
[2023-05-24 20:14] LABS: ALT 14 U/L (4-34); AST 37 U/L (14-36); African American GFR (CKD) 46 (>60 ml/min/1.73 sqM); Albumin 3.8 g/dL (3.5-5.0); Alkaline Phosphatase 64 U/L (38-126); Anion Gap 8 mmol/L; Blood Urea Nitrogen 19 mg/dL (7-17); Calcium 9.1 mg/dL (8.4-10.2); Carbon Dioxide 31 mmol/L (22-30); Chloride 104 mmol/L (98-107); Glucose 105 mg/dL (74-99); Magnesium 1.8 mg/dL (1.6-2.3); Non-African American GFR(CKD) 40 (>60 ml/min/1.73 sqM); Potassium 3.4 mmol/L (3.5-5.1); Sodium 143 mmol/L (137-145); Total Protein 6.3 g/dL (6.3-8.2)
[2023-05-24 20:23] LABS: NT-Pro-B-Type Natriuretic Pept 8130 pg/mL
[2023-05-25] MEDS ORDERED: HEPARIN SODIUM 1,000 UN/ML (10ML VL) IV ONE (01:56)
[2023-05-25] MEDS ORDERED: HEPARIN SODIUM 1,000 UN/ML (10ML VL) IV PRN (01:56)
[2023-05-25] MEDS: HEPARIN SOD,PORK IN 0.45% NACL 25,000 UNIT in 0.45% NACL 1 250ML.BAG IV SCH (02:16)
[2023-05-25] MEDS ORDERED: POTASSIUM CHLORIDE ER 20 MEQ TAB.ER PO STA (02:29)
--- NOTE | 2023-05-25 02:30 | P.HPIM ---
History of Present Illness H&P Date: 05/24/23 Patient is a 82-year-old female with a PMH of breast cancer status post bilateral mastectomy, COPD on 3 L of cannula oxygen at home, and type II DM, and hypothyroidism who was transferred from [facility] where she presented with complaints of nausea and vomiting. Patient reports that ever since her most recent mastectomy in January 2023 and since starting anastrozole, that she has been experiencing intermittent nausea which has gradually been worsening. Reports having 1-2 episodes of vomiting a week. Denies expressing abdominal pain. Does report occasional diarrhea without blood or black tarry stools. She also reports abdominal distention which has been worsening over the past few weeks. Denies chest discomfort with baseline limited exercise tolerance due to COPD which is unchanged. She was previously seen by her PCP but it was a new physician and she was given Zofran and sent home and was not satisfied with taking the medication. She underwent extensive evaluation at [facility] which was all reviewed. Chest x-ray revealed moderate cardiomegaly with small left-sided pleural effusion without evidence of edema. EKG at our facility revealed sinus r hythm with evidence of right ventricular hypertrophy with poor R-wave progression at 79 bpm. Laboratory evaluation revealed WBC count 6.3, hemoglobin 15.3, platelet, 97, glucose 189, BUN 17, creatinine 1.19, sodium 143, potassium 3.2, magnesium 1.2, chloride 101, troponin T high-sensitivity 26, and proBNP 8102 with lactic acid 4.5. ED documentation reviewed and case discussed with ED provider Review of systems: Pertinent positives and negatives as discussed in HPI, a complete review of systems was performed and all other systems are negative. Physical examination: Vital signs reviewed General: non toxic, no distress, appears at stated age, normal weight Derm: no unusual rashes/lesions, warm Head: atraumatic, normocephalic, symmetric Eyes: EOMI, no lid lag, anicteric sclera, pupils equal round reactive to light ENT: Nose and ears atraumatic Neck: No cervical lymphadenopathy, trachea midline, supple Mouth: no lip lesion, mucus membranes moist Cardiovascular: S1S2 reg, no murmur, positive dorsalis pedis pulse bilateral, no edema Lungs: CTA bilateral, no rhonchi, no rales, no accessory muscle use Abdominal: Distended, nontender to palpation, no guarding Ext: muscle strength 5 out of 5 in all 4 extremities grossly, no gross muscle atrophy, no contractures, Neuro: CN II-XI grossly intact, no gross focal neuro deficits Psych: Alert, oriented, appropriate affect Assessment: Cardiomegaly and elevated BNP with trace pleural effusion, rule out CHF Lactic acidosis Hypokalemia and hypomagnesemia Nausea and vomiting with abdominal distention, unclear etiology, possibly linked to anastrozole use Chronic conditions: COPD with chronic hypoxic respiratory failure, type II DM, hypothyroidism Imaging: She underwent extensive evaluation at [facility] which was all reviewed. Chest x-ray revealed moderate cardiomegaly with small left-sided pleural effusion without evidence of edema. EKG at our facility revealed sinus rhythm with evidence of right ventricular hypertrophy with poor R-wave progression at 79 bpm. Data Review: Laboratory evaluation revealed WBC count 6.3, hemoglobin 15.3, platelet, 97, glucose 189, BUN 17, creatinine 1.19, sodium 143, potassium 3.2, magnesium 1.2, chloride 101, troponin T high-sensitivity 26, and proBNP 8102 with lactic acid 4.5. Plan: Obtain echocardiogram Cardiology consult Cardiac monitoring Trend troponin Replace potassium and magnesium Obtain CT abdomen without contrast Continue supplemental oxygen Insulin sliding scale and blood glucose monitoring Monitor lactic acid level for resolution DVT prophylaxis: Lovenox Subq The patient is admitted with an anticipated greater than 2 midnight stay for evaluation of chf CODE STATUS: Full Code Discussed with: Patient, daughter Anticipated discharge place: Home Past Medical History Past Medical History: Cancer, Chest Pain / Angina, Heart Failure, COPD, Diabetes Mellitus, Eye Disorder, GERD/Reflux, Hyperlipidemia, Hypertension, Osteoarthritis (OA), Pneumonia, Respiratory Disorder, Thyroid Disorder Additional Past Medical History / Comment(s): Pt states she received + covid results on 05/02/20 at a [facility] clinic across from [facility]. 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 History of Any Multi-Drug Resistant Organisms: None Reported Past Surgical History: Breast Surgery, Cholecystectomy, Heart Catheterization, Hysterectomy, Orthopedic Surgery Additional Past Surgical History / Comment(s): R mastectomy, R shoulder arthroscopy, R shoulder benign tumor removed, R knee arthroscopy, renal biopsy- pt cannot recall reason, L eye macular hole with repair, bilateral cataract removals, colonoscopies, R inguinal hernia repair, pt thinks she has had a bronchoscopy in the past. Past Anesthesia/Blood Transfusion Reactions: Previous Problems w/ Anesthesia Additional Past Anesthesia/Blood Transfusion Reaction / Comment(s): Hard time waking up X1. Past Psychological History: Depression Smoking Status: Former smoker Past Alcohol Use History: Rare Past Drug Use History: None Reported - Past Family History Mother Family Medical History: Dementia Father Family Medical History: Cancer Additional Family Medical History / Comment(s): Colon cancer. Sister(s) Family Medical History: Cancer Additional Family Medical History / Comment(s): colon cancer. Medications and Allergies Home Medications Medication Instructions Recorded Confirmed Type FLUoxetine HCL [PROzac] 20 mg PO HS 02/08/18 05/24/23 History Levothyroxine Sodium [Synthroid] 50 mcg PO DAILY 05/05/20 05/24/23 History Nitroglycerin Sl Tabs [Nitrostat] 0.4 mg SL Q5M PRN 05/05/20 05/24/23 History Anastrozole [Arimidex] 1 mg PO DAILY 05/24/23 05/24/23 History Famotidine [Pepcid] 20 mg PO DAILY 05/24/23 05/24/23 History Glimepiride [Amaryl] 2 mg PO AC-BRKFST 05/24/23 05/24/23 History Ketoconazole 2% Cream [Nizoral 2%] 1 applic TOPICAL BID 05/24/23 05/24/23 History Metoprolol Tartrate [Lopressor] 25 mg PO BID 05/24/23 05/24/23 History Ondansetron Odt [Zofran ODT] 4 mg SL TID PRN 05/24/23 05/24/23 History Potassium Chloride ER [K-Dur 20] 20 meq PO DAILY 05/24/23 05/24/23 History dilTIAZem HCL [dilTIAZem HCL 24Hr 180 mg PO DAILY 05/24/23 05/24/23 History ER (Xr)] Allergies Allergy/AdvReac Type Severity Reaction Status Date / Time codeine AdvReac Vomiting Verified 05/24/23 21:15 hydrocodone [From Vicodin] AdvReac Vomiting Verified 05/24/23 21:15 Physical Exam Vitals: Vital Signs Temp Pulse Resp BP Pulse Ox 05/24/23 20:00 101/77 05/24/23 19:50 80 12 101/77 91 L 05/24/23 19:40 27 H 126/83 91 L 05/24/23 19:30 80 14 117/71 92 L 05/24/23 19:20 80 22 117/71 91 L 05/24/23 19:12 76 20 90 L 05/24/23 18:56 97.3 F L 77 20 112/85 93 L Intake and Output 05/24/23 05/24/23 05/24/23 06:59 14:59 22:59 Other: Weight 69.4 kg Results CBC & Chem 7: 05/24/23 19:51 05/24/23 19:51 Labs: Abnormal Lab Results - Last 24 Hours (Table) 05/24/23 05/24/23 Range/Units 19:51 19:51 Hct 47.2 H (34.0-46.0) % Potassium 3.4 L (3.5-5.1) mmol/L Carbon Dioxide 31 H (22-30) mmol/L BUN 19 H (7-17) mg/dL Creatinine 1.25 H (0.52-1.04) mg/dL Glucose 105 H (74-99) mg/dL AST 37 H (14-36) U/L
[2023-05-25 04:28] LABS: Basophils % (A) 1 %; Eosinophils # (A) 0.1 k/uL (0-0.7); Eosinophils % (A) 1 %; HCT 48.7 % (34.0-46.0); Hypochromasia Slight; Lymphocytes # (A) 2.1 k/uL (1.0-4.8); Lymphocytes % (A) 27 %; MCH 29.4 pg (25.0-35.0); MCHC 30.9 g/dL (31.0-37.0); MCV 95.4 fL (80.0-100.0); Mean Platelet Volume 8.6; Monocytes # (A) 0.6 k/uL (0-1.0); Monocytes % (A) 7 %; Neutrophils # (A) 4.9 k/uL (1.3-7.7); Neutrophils % (A) 63 %; Platelet Count 193 k/uL (150-450); RDW 13.5 % (11.5-15.5); WBC 7.8 k/uL (3.8-10.6)
[2023-05-25 04:42] LABS: INR 1.6 (<1.2); Prothrombin Time 16.2 sec (10.0-12.5)
[2023-05-25 05:03] LABS: Partial Thromboplastin Time 121.4 sec (22.0-30.0)
[2023-05-25 06:12] LABS: Glucose,Whole Blood 97 mg/dL (70-110)
[2023-05-25] MEDS: INSULIN ASPART (NovoLOG) 100 UNIT/ML VIAL SQ SCH ×4 (06:40→20:08)
[2023-05-25] MEDS: LEVOTHYROXINE 50 MCG TAB PO SCH (06:40)
--- NOTE | 2023-05-25 08:45 | CT ---
EXAMINATION TYPE: CT abdomen pelvis wo con DATE OF EXAM: 05/25/2023 HISTORY: Nausea, Vomiting and Abdominal Distention CT DLP: 556.4 mGycm. Automated Exposure Control for Dose Reduction was Utilized. TECHNIQUE: CT scan of the abdomen and pelvis is performed without oral or IV contrast. COMPARISON: Prior CT November 12, 2022 FINDINGS: Within the limitations of a non-contrast study, the following observations are made. LUNG BASES: Tiny left greater than right pleural effusions on current study are new from prior. Moder ate right greater than left biatrial dilatation. Cardiomegaly with tiny pericardial effusion. Calcifi cation at level of the mitral and aortic valves. Coronary artery calcification redemonstrated. LIVER/GB: Lobulated contour to the liver consistent with underlying cirrhosis redemonstrated. New adj acent ascites. Cholecystectomy clips are redemonstrated. PANCREAS: No significant abnormality is seen. SPLEEN: Spleen remains normal in size. ADRENALS: No significant abnormality is seen. KIDNEYS: No significant abnormality is seen. BOWEL: Diffuse colonic diverticulosis. No CT evidence for acute diverticulitis. No abnormal small or large bowel dilatation. GENITAL ORGANS: Uterus is surgically absent or markedly atrophic. LYMPH NODES: No greater than 1cm abdominal or pelvic lymph nodes are appreciated. OSSEOUS STRUCTURES: Scoliotic curvature with multilevel spurring in the thoracolumbar spine. Moderate narrowing and spurring of both hip joints. OTHER: Small amount of intraperitoneal ascites throughout the abdomen and pelvis from prior. Moderate to severe calcified plaque of the aorta extends into branch vessels. IMPRESSION: 1. Cirrhotic liver redemonstrated. New small amount of intraperitoneal ascites scattered throughout t he abdomen and pelvis. New tiny left greater than right pleural effusions.
[2023-05-25] MEDS ORDERED: METOPROLOL TARTRATE 25 MG TAB PO SCH (09:00)
[2023-05-25] MEDS ORDERED: DILTIAZEM CD 180 MG CAP.ER.24H PO SCH (09:00)
[2023-05-25] MEDS: POTASSIUM CHLORIDE ER 20 MEQ TAB.ER PO SCH (09:02)
--- NOTE | 2023-05-25 10:42 | CA ---
Transthoracic Echo Report Name: Yasmeen Cabello Age: 82 Gender: F : 1940 Exam Date: 05/25/2023 09:12 Exam Location: [facility] Ht (in): 64 Wt (lb): 153 Ordering Physician: Berry Bower MD Attending/Referring Phys: [id number], Sathish Gro[employer] Clerk [employer] Bozena Aviles RDCS Procedure CPT: Indications: LUNA Cardiac Hx: Technical Quality: Technically difficult study Contrast 1: Total Dose (mL): Contrast 2: Total Dose (mL): MEASUREMENTS (Male / Female) Normal Values 2D ECHO LV Diastolic Diameter PLAX 3.3 cm 4.2 - 5.9 / 3.9 - 5.3 cm LV Systolic Diameter PLAX 2.5 cm IVS Diastolic Thickness 1.2 cm 0.6 - 1.0 / 0.6 - 0.9 cm LVPW Diastolic Thickness 1.0 cm 0.6 - 1.0 / 0.6 - 0.9 cm LV Relative Wall Thickness 0.7 RV Internal Dim ED PLAX 3.5 cm LVOT Diameter 2.1 cm LA Systolic Diameter LX 3.9 cm 3.0 - 4.0 / 2.7 - 3.8 cm LV Diastolic Volume MOD BP 28.0 cm??? 67 - 155 / 56 - 104 cm??? LV Systolic Volume MOD BP 9.2 cm??? 22 - 58 / 19 - 49 cm??? LV Ejection Fraction MOD BP 67.3 % >= 55 % LV Cardiac Index MOD BP 802.6 cm???/min???m??? LV Diastolic Volume MOD 4C 23.9 cm??? LV Systolic Volume MOD 4C 7.5 cm??? LV Ejection Fraction MOD 4C 68.6 % LV Cardiac Index MOD 4C 697.4 cm???/min???m??? LV Diastolic Length 4C 5.1 cm LV Systolic Length 4C 4.6 cm LV Diastolic Volume MOD 2C 29.9 cm??? LV Systolic Volume MOD 2C 9.9 cm??? LV Ejection Fraction MOD 2C 67.0 % LV Cardiac Index MOD 2C 852.4 cm???/min???m??? LV Diastolic Length 2C 5.8 cm LV Systolic Length 2C 5.6 cm LA Volume 61.3 cm??? 18 - 58 / 22 - 52 cm??? LA Volume Index 34.3 cm???/m??? 16 - 28 cm???/m??? M-MODE Aortic Root Diameter MM 3.0 cm LA Systolic Diameter MM 1.5 cm LA Ao Ratio MM 0.5 DOPPLER AV Peak Velocity 131.8 cm/s AV Peak Gradient 7.0 mmHg Mitral E Point Velocity 95.3 cm/s Mitral A Point Velocity 122.5 cm/s Mitral E to A Ratio 0.8 MV Deceleration Time 286.2 ms MV E' Velocity 5.2 cm/s Mitral E to MV E' Ratio 18.4 TR Peak Velocity 335.5 cm/s TR Peak Gradient 45.0 mmHg Right Ventricular Systolic Press 55.0 mmHg FINDINGS Left Ventricle Left ventricular ejection fraction is estimated at 50-55 %. Small left ventricular cavity. Mildly increased septal wall thickness. Flattenning of ventricular septum in systole and diastole Right Ventricle right ventricular dilatation. There is right ventricular enlargement consistent with right ventricular volume overload. Severe pulmonary hypertension. Right ventricular systolic pressure estimated at 55 mm hg. Right Atrium Right atrium not well visualized. Left Atrium Mildly increased left atrial volume. Mildly increased left atrial area. Mitral Valve Mitral valve thickened. Mild mitral annular calcification. Trace mitral regurgitation. Aortic Valve Trileaflet aortic valve. Thickened aortic valve without stenosis. Tricuspid Valve Tricuspid valve not well visualized. [id number] tricuspid regurgitation. Pulmonic Valve Pulmonic valve not well visualized. Pericardium Small pericardial effusion by posterior wall of LV Aorta Normal size aortic root and proximal ascending aorta. CONCLUSIONS Moderate to severe RV enlargement. RV to LV ratio is greater than 1.0 RVH noted Septal flattening noted consistent with volume and pressure overload from the right side Previewed by: Dr. Mehul Luke MD (Electronically Signed) Final Date: 25 May 2023 10:41
--- NOTE | 2023-05-25 11:15 | P.CRDCN ---
History of Present Illness Consult date: 05/25/23 History of present illness: History of present illness: This is an 82-year-old female patient of Dr. MELINA Walker with past medical history of hypertension, hyperlipidemia, diabetes mellitus type 2, COPD, pulmonary hypertension, chronic hypoxic respiratory failure on home O2, right breast cancer s/p surgery without chemotherapy or radiation. We have been asked to evaluate the patient for heart failure. Patient states she presented to the hospital due to vomiting and having episodes of lightheadedness for the past 4 weeks that happens occasionally and she thinks it is related to one of her medications breast cancer. She denies having any chest pain and does not feel her symptoms are related to her heart.. EKG sinus rhythm with low voltage WBC 7.8, hemoglobin 15, platelet count 193. INR 1.6. BUN 19 creatinine 1.25. Blood sugar 105. AST 37 otherwise liver function test are normal. Magnesium 1.8. Troponin 0.028, 0.075 and 0.087. proBNP 8130. Echocardiogram reveals moderate to severe RV enlargement. RV to LV ratio is greater than 1. RVH noted. Septal flattening consistent with volume and pressure overload from the right side. EF 50 to 55%. Home cardiac medications: Cardizem XR 180 mg daily, Lopressor 25 mg twice daily, Nitrostat as needed, potassium chloride 20 mEq daily, patient also on levothyroxine 50 mcg daily. Cardiac catheterization history 2009 minimal CAD Dobutamine echocardiogram performed 02/23/2021 revealed patient slightly tach ycardic to begin but dobutamine echo was normal with vigorous contractility suggesting no ischemia. Review Of Systems: At the time of my evaluation: Constitutional: No fever, no chills. No weakness, fatigue or lethargy. EENT: No headache. No dizziness. Lungs: No shortness of breath, cough, no sputum production. No wheezing. Cardiovascular: No chest pain, no lower extremity edema. No palpitations. No paroxysmal nocturnal dyspnea. No orthopnea. No lightheadedness or dizziness. No syncopal episodes. Abdominal: No abdominal pain. Reports vomiting. No diarrhea. No constipation. No bloody or tarry stools. Musculoskeletal: No myalgias. No muscle weakness, no frequent falls. Integumentary: No wounds. No rash. No unusual bruising. Neurologic: No aphasia. No facial droop. No change in mentation. No head injury. No headache. Physical examination: Gen: This is a a 71-year-old female VS: reviewed blood pressure 136/87, heart rate 72, pulse ox 92% on 3 L nasal cannula. HEENT: Head is atraumatic, normocephalic. Pupils equal, round. Sclerae is anicteric. NECK: Supple. No JVD. . LUNGS: Clear to auscultation. No wheezes or rhonchi. No intercostal retractions. HEART: Regular rate and rhythm. No murmur. ABDOMEN: Soft No tenderness. EXTREMITIES: No pedal edema. No calf tenderness. NEUROLOGICAL: Patient is awake, alert and oriented x3. Assessment: Mild elevation of troponins less likely to be cardiac, most likely due to chronic hypoxia Vomiting Hypertension Hyperlipidemia Diabetes mellitus type 2 COPD Pulm hypertension Chronic hypoxic respiratory failure on home O2 Right-sided breast cancer s/p surgery Plan: Continue patient's home cardiac medications Obtain TSH, A1c Further recommendations to follow based upon clinical course Thank you kindly for this consultation. Nurse practitioner note has been reviewed, I agree with documented findings and plan of care. Patient was seen and examined. Past Medical History Past Medical History: Cancer, Chest Pain / Angina, Heart Failure, COPD, Diabetes Mellitus, Eye Disorder, GERD/Reflux, Hyperlipidemia, Hypertension, Osteoarthritis (OA), Pneumonia, Respiratory Disorder, Thyroid Disorder Additional Past Medical History / Comment(s): Pt states she received + covid results on 05/02/20 at [facility] across from [facility]. 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 History of Any Multi-Drug Resistant Organisms: None Reported Past Surgical History: Breast Surgery, Cholecystectomy, Heart Catheterization, Hysterectomy, Orthopedic Surgery Additional Past Surgical History / Comment(s): R mastectomy, R shoulder arthro scopy, R shoulder benign tumor removed, R knee arthroscopy, renal biopsy-pt cannot recall reason, L eye macular hole with repair, bilateral cataract removals, colonoscopies, R inguinal hernia repair, pt thinks she has had a bronchoscopy in the past. Past Anesthesia/Blood Transfusion Reactions: Previous Problems w/ Anesthesia Additional Past Anesthesia/Blood Transfusion Reaction / Comment(s): Hard time waking up X1. Past Psychological History: Depression Smoking Status: Former smoker Past Alcohol Use History: Rare Past Drug Use History: None Reported - Past Family History Mother Family Medical History: Dementia Father Family Medical History: Cancer Additional Family Medical History / Comment(s): Colon cancer. Sister(s) Family Medical History: Cancer Additional Family Medical History / Comment(s): colon cancer. Medications and Allergies Home Medications Medication Instructions Recorded Confirmed Type FLUoxetine HCL [PROzac] 20 mg PO HS 02/08/18 05/24/23 History Levothyroxine Sodium [Synthroid] 50 mcg PO DAILY 05/05/20 05/24/23 History Nitroglycerin Sl Tabs [Nitrostat] 0.4 mg SL Q5M PRN 05/05/20 05/24/23 History Anastrozole [Arimidex] 1 mg PO DAILY 05/24/23 05/24/23 History Famotidine [Pepcid] 20 mg PO DAILY 05/24/23 05/24/23 History Glimepiride [Amaryl] 2 mg PO AC-BRKFST 05/24/23 05/24/23 History Ketoconazole 2% Cream [Nizoral 2%] 1 applic TOPICAL BID 05/24/23 05/24/23 History Metoprolol Tartrate [Lopressor] 25 mg PO BID 05/24/23 05/24/23 History Ondansetron Odt [Zofran ODT] 4 mg SL TID PRN 05/24/23 05/24/23 History Potassium Chloride ER [K-Dur 20] 20 meq PO DAILY 05/24/23 05/24/23 History dilTIAZem HCL [dilTIAZem HCL 24Hr 180 mg PO DAILY 05/24/23 05/24/23 History ER (Xr)] Allergies Allergy/AdvReac Type Severity Reaction Status Date / Time codeine AdvReac Vomiting Verified 05/24/23 21:15 hydrocodone [From Vicodin] AdvReac Vomiting Verified 05/24/23 21:15 Physical Exam Vitals: Vital Signs Temp Pulse Pulse Resp BP BP BP 05/25/23 04:00 72 18 102/65 136/87 05/25/23 02:00 77 18 01/19/24 00:00 77 18 05/24/23 22:00 77 18 05/24/23 21:42 97.7 F 77 18 05/24/23 20:00 101/77 05/24/23 19:50 80 12 101/77 05/24/23 19:40 27 H 126/83 05/24/23 19:30 80 14 117/71 05/24/23 19:20 80 22 117/71 05/24/23 19:12 76 20 05/24/23 18:56 97.3 F L 77 20 112/85 BP Pulse Ox 05/25/23 04:00 92 L 05/25/23 02:00 05/25/23 00:00 99/64 92 L 05/24/23 22:00 05/24/23 21:42 108/71 93 L 05/24/23 20:00 05/24/23 19:50 91 L 05/24/23 19:40 91 L 05/24/23 19:30 92 L 05/24/23 19:20 91 L 05/24/23 19:12 90 L 05/24/23 18:56 93 L Intake and Output 05/24/23 05/25/23 05/25/23 22:59 06:59 14:59 Intake Total 23.457 Balance 23.457 Intake: Intake, IV Titration 23.457 Amount Heparin Sod,Pork in 0.45% 23.457 NaCl 25,000 unit In 0.45 % NaCl 1 250ml.bag @ 12 UNITS/KG/HR 8.328 mls/hr IV .Q24H [facility] Rx#: [id number] Other: Voiding Method Toilet Toilet # Voids 0 1 Weight 69.4 kg Results 05/25/23 03:50 05/24/23 19:51 Cardiac Enzymes 05/24/23 05/24/23 05/24/23 Range/Units 19:51 19:51 22:31 AST 37 H (14-36) U/L Troponin I 0.028 0.075 H* (0.000-0.034) ng/mL 05/25/23 Range/Units 00:28 AST (14-36) U/L Troponin I 0.087 H* (0.000-0.034) ng/mL Coagulation 05/25/23 Range/Units 03:50 PT 16.2 H (10.0-12.5) sec APTT 121.4 H* (22.0-30.0) sec CBC 05/24/23 05/25/23 Range/Units 19:51 03:50 WBC 8.5 7.8 (3.8-10.6) k/uL RBC 5.04 5.10 (3.80-5.40) m/uL Hgb 15.1 15.0 (11.4-16.0) gm/dL Hct 47.2 H 48.7 H (34.0-46.0) % Plt Count 195 193 (150-450) k/uL Comprehensive Metabolic Panel 05/24/23 Range/Units 19:51 Sodium 143 (137-145) mmol/L Potassium 3.4 L (3.5-5.1) mmol/L Chloride 104 (98-107) mmol/L Carbon Dioxide 31 H (22-30) mmol/L BUN 19 H (7-17) mg/dL Creatinine 1.25 H (0.52-1.04) mg/dL Glucose 105 H (74-99) mg/dL Calcium 9.1 (8.4-10.2) mg/dL AST 37 H (14-36) U/L ALT 14 (4-34) U/L Alkaline Phosphatase 64 (38-126) U/L Total Protein 6.3 (6.3-8.2) g/dL Albumin 3.8 (3.5-5.0) g/dL Current Medications Generic Name Dose Route Start Last Admin Trade Name Freq PRN Reason Stop Dose Admin Diltiazem HCl 180 mg 05/25/23 09:00 Diltiazem Cd 180 Mg Cap.Er.24h PO DAILY NANCY Fluoxetine HCl 20 mg 05/25/23 21:00 Fluoxetine Hcl 20 Mg Cap PO HS NANCY Heparin Sodium (Porcine) 0 unit 05/25/23 01:56 Heparin Sodium 1,000 Un/Ml (10ml Vl) IV PER PROTOCOL PRN Low PTT Protocol Heparin Sodium/Sodium Chloride 250 mls @ 8.328 mls/hr 05/25/23 02:00 05/25/23 06:37 25,000 unit/ Sodium Chloride IV 9 units/kg/hr .Q24H NANCY 6.246 mls/hr Titration Protocol 12 UNITS/KG/HR Insulin Aspart 0 unit 05/25/23 07:30 05/25/23 06:40 Insulin Aspart (Novolog) 100 Unit/Ml Vial SQ Not Given ACHS [facility] Protocol Levothyroxine Sodium 50 mcg 05/25/23 06:30 05/25/23 06:40 Levothyroxine 50 Mcg Tab PO 50 mcg DAILY@0630 NANCY Administration Metoprolol Tartrate 25 mg 05/25/23 09:00 Metoprolol Tartrate 25 Mg Tab PO BID NANCY Naloxone HCl 0.2 mg 05/24/23 19:38 Naloxone 0.4 Mg/Ml 1 Ml Vial IV Q2M PRN Opioid Reversal Potassium Chloride 20 meq 05/25/23 09:00 Potassium Chloride Er 20 Meq Tab.Er PO DAILY NANCY Intake and Output 05/24/23 05/25/23 05/25/23 22:59 06:59 14:59 Intake Total 23.457 Balance 23.457 Intake: Intake, IV Titration 23.457 Amount Heparin Sod,Pork in 0.45% 23.457 NaCl 25,000 unit In 0.45 % NaCl 1 250ml.bag @ 12 UNITS/KG/HR 8.328 mls/hr IV .Q24H [facility] Rx#: [id number] Other: Voiding Method Toilet Toilet # Voids 0 1 Weight 69.4 kg 05/25/23 03:50 05/24/23 19:51
[2023-05-25 11:24] LABS: African American GFR (CKD) 31 (>60 ml/min/1.73 sqM); Anion Gap 12 mmol/L; Blood Urea Nitrogen 25 mg/dL (7-17); Calcium 8.8 mg/dL (8.4-10.2); Carbon Dioxide 20 mmol/L (22-30); Chloride 108 mmol/L (98-107); Glucose 130 mg/dL (74-99); Non-African American GFR(CKD) 27 (>60 ml/min/1.73 sqM); Potassium 4.5 mmol/L (3.5-5.1); Sodium 140 mmol/L (137-145)
[2023-05-25 11:30] LABS: Glucose,Whole Blood 133 mg/dL (70-110)
[2023-05-25 12:19] LABS: T4, Free (Free Thyroxine) 1.55 ng/dL (0.78-2.19)
[2023-05-25 16:33] LABS: Glucose,Whole Blood 69 mg/dL (70-110)
--- NOTE | 2023-05-25 16:46 | P.PN ---
Subjective Progress Note Date: 05/25/23 Pt had episodes of hypotension, bradycardia and cyanosis today associated with n/v. General: non toxic, no distress, appears at stated age, normal weight Derm: cyanotic finger tips Head: atraumatic, normocephalic, symmetric Eyes: EOMI, no lid lag, ENT: Nose and ears atraumatic Neck: No cervical lymphadenopathy, trachea midline, supple Abdominal: Distended, nontender to palpation, no guarding Ext: muscle strength 5 out of 5 in all 4 extremities grossly, no gross muscle atrophy, no contractures, Neuro: CN II-XI grossly intact, no gross focal neuro deficits Psych: Alert, oriented, appropriate affect Hospital Course: Patient is a 82-year-old female with a PMH of breast cancer status post bilateral mastectomy, COPD on 3 L of cannula oxygen at home, and type II DM, and hypothyroidism who was transferred from [facility] where she presented with complaints of nausea and vomiting. She underwent extensive evaluation at [facility] which was all reviewed. Chest x-ray revealed moderate cardiomegaly with small left-sided pleural effusion without evidence of edema. EKG at our facility revealed sinus rhythm with evidence of right ventricular hypertrophy with poor R-wave progression at 79 bpm. Laboratory evaluation revealed WBC count 6.3, hemoglobin 15.3, platelet, 97, glucose 189, BUN 17, creatinine 1.19, sodium 143, potassium 3.2, magnesium 1.2, chloride 101, troponin T high-sensitivity 26, and proBNP 8102 with lactic acid 4.5. Assessment: Right Heart Failure, Acute; Class III pulmonary HTN Lactic acidosis Hypokalemia and hypomagnesemia Nausea and vomiting with abdominal distention, unclear etiology, possibly linked to anastrozole use Chronic conditions: COPD with chronic hypoxic respiratory failure, type II DM, hypothyroidism Imaging: She underwent extensive evaluation at [facility] which was all reviewed. Chest x-ray revealed moderate cardiomegaly with small left-sided pleural effusion without evidence of edema. EKG at our facility revealed sinus rhythm with evidence of right ventricular hypertrophy with poor R-wave progression at 79 bpm. Data Review: Laboratory evaluation revealed WBC count 6.3, hemoglobin 15.3, platelet, 97, glucose 189, BUN 17, creatinine 1.19, sodium 143, potassium 3.2, magnesium 1.2, chloride 101, troponin T high-sensitivity 26, and proBNP 8102 with lactic acid 4.5. Plan: Obtain echocardiogram Cardiology consult Cardiac monitoring Trend troponin Replace potassium and magnesium Obtain CT abdomen without contrast Continue supplemental oxygen Insulin sliding scale and blood glucose monitoring Monitor lactic acid level for resolution 05/25: start midodrine, discontinue metoprolol, cardizem. Echo read reviewed, cardiology note reviewed. Case discussed with family at bedside. They would like to be no code. DVT prophylaxis: Lovenox Subq The patient is admitted with an anticipated greater than 2 midnight stay for evaluation of chf CODE STATUS: Full Code Discussed with: Patient, daughter Anticipated discharge place: Home Objective - Vital Signs Vital signs: Vital Signs Temp 97.7 F 05/24/23 21:42 Pulse 61 05/25/23 14:00 Resp 18 05/25/23 14:00 BP 106/62 05/25/23 12:00 Pulse Ox 93 L 05/25/23 12:00 FiO2 Intake & Output 05/24/23 05/25/23 05/25/23 18:59 06:59 18:59 Intake Total 23.457 30.397 Balance 23.457 30.397 Weight 69.4 kg 69.4 kg Intake: Intake, IV Titration 23.457 30.397 Amount Heparin Sod,Pork in 0.45% 23.457 30.397 NaCl 25,000 unit In 0.45 % NaCl 1 250ml.bag @ 12 UNITS/KG/HR 8.328 mls/hr IV .Q24H [facility] Rx#: [id number] Other: Voiding Method Toilet Toilet # Voids 1 3 - Labs CBC & Chem 7: 05/25/23 03:50 05/25/23 10:28 Labs: Abnormal Lab Results - Last 24 Hours (Table) 05/24/23 05/24/23 05/24/23 Range/Units 19:51 19:51 22:31 Hct 47.2 H (34.0-46.0) % MCHC (31.0-37.0) g/dL PT (10.0-12.5) sec INR (<1.2) APTT (22.0-30.0) sec Potassium 3.4 L (3.5-5.1) mmol/L Chloride (98-107) mmol/L Carbon Dioxide 31 H (22-30) mmol/L BUN 19 H (7-17) mg/dL Creatinine 1.25 H (0.52-1.04) mg/dL Glucose 105 H (74-99) mg/dL POC Glucose (mg/dL) (70-110) mg/dL AST 37 H (14-36) U/L Troponin I 0.075 H* (0.000-0.034) ng/mL TSH (0.465-4.680) mIU/L 05/25/23 05/25/23 05/25/23 Range/Units 00:28 03:50 03:50 Hct 48.7 H (34.0-46.0) % MCHC 30.9 L (31.0-37.0) g/dL PT 16.2 H (10.0-12.5) sec INR 1.6 H (<1.2) APTT 121.4 H* (22.0-30.0) sec Potassium (3.5-5.1) mmol/L Chloride (98-107) mmol/L Carbon Dioxide (22-30) mmol/L BUN (7-17) mg/dL Creatinine (0.52-1.04) mg/dL Glucose (74-99) mg/dL POC Glucose (mg/dL) (70-110) mg/dL AST (14-36) U/L Troponin I 0.087 H* (0.000-0.034) ng/mL TSH (0.465-4.680) mIU/L 05/25/23 05/25/23 05/25/23 Range/Units 10:28 10:28 11:28 Hct (34.0-46.0) % MCHC (31.0-37.0) g/dL PT (10.0-12.5) sec INR (<1.2) APTT 45.8 H (22.0-30.0) sec Potassium (3.5-5.1) mmol/L Chloride 108 H (98-107) mmol/L Carbon Dioxide 20 L (22-30) mmol/L BUN 25 H (7-17) mg/dL Creatinine 1.72 H (0.52-1.04) mg/dL Glucose 130 H (74-99) mg/dL POC Glucose (mg/dL) 133 H (70-110) mg/dL AST (14-36) U/L Troponin I (0.000-0.034) ng/mL TSH 5.200 H (0.465-4.680) mIU/L 05/25/23 Range/Units 16:31 Hct (34.0-46.0) % MCHC (31.0-37.0) g/dL PT (10.0-12.5) sec INR (<1.2) APTT (22.0-30.0) sec Potassium (3.5-5.1) mmol/L Chloride (98-107) mmol/L Carbon Dioxide (22-30) mmol/L BUN (7-17) mg/dL Creatinine (0.52-1.04) mg/dL Glucose (74-99) mg/dL POC Glucose (mg/dL) 69 L (70-110) mg/dL AST (14-36) U/L Troponin I (0.000-0.034) ng/mL TSH (0.465-4.680) mIU/L
[2023-05-25 19:55] LABS: Glucose,Whole Blood 108 mg/dL (70-110)
[2023-05-25] MEDS: MIDODRINE 5 MG TAB PO SCH (20:08)
[2023-05-25] MEDS: FLUoxetine HCL 20 MG CAP PO SCH (20:08)
[2023-05-26 03:34] LABS: Glucose,Whole Blood 97 mg/dL (70-110)
[2023-05-26] MEDS: HEPARIN SOD,PORK IN 0.45% NACL 25,000 UNIT in 0.45% NACL 1 250ML.BAG IV SCH (04:13)
[2023-05-26 06:14] LABS: Glucose,Whole Blood 169 mg/dL (70-110)
[2023-05-26] MEDS: LEVOTHYROXINE 50 MCG TAB PO SCH (06:31)
[2023-05-26] MEDS: INSULIN ASPART (NovoLOG) 100 UNIT/ML VIAL SQ SCH ×4 (06:31→20:25)
[2023-05-26 07:57] LABS: Basophils # (A) 0.1 k/uL (0-0.2); Basophils % (A) 1 %; Eosinophils % (A) 0 %; HCT 49.1 % (34.0-46.0); HGB 15.2 gm/dL (11.4-16.0); Hypochromasia Slight; Lymphocytes # (A) 1.5 k/uL (1.0-4.8); Lymphocytes % (A) 16 %; MCH 29.2 pg (25.0-35.0); MCHC 30.9 g/dL (31.0-37.0); MCV 94.6 fL (80.0-100.0); Mean Platelet Volume 9.2; Monocytes # (A) 0.7 k/uL (0-1.0); Monocytes % (A) 8 %; Neutrophils # (A) 6.9 k/uL (1.3-7.7); Neutrophils % (A) 73 %; Platelet Count 234 k/uL (150-450); RBC 5.19 m/uL (3.80-5.40); RDW 13.5 % (11.5-15.5); WBC 9.4 k/uL (3.8-10.6)
[2023-05-26 08:21] LABS: INR 1.5 (<1.2); Partial Thromboplastin Time 42.7 sec (22.0-30.0); Prothrombin Time 15.6 sec (10.0-12.5)
[2023-05-26] MEDS: MIDODRINE 5 MG TAB PO SCH ×2 (08:22→12:10)
[2023-05-26] MEDS: POTASSIUM CHLORIDE ER 20 MEQ TAB.ER PO SCH (08:22)
[2023-05-26 08:26] LABS: African American GFR (CKD) 21 (>60 ml/min/1.73 sqM); Anion Gap 10 mmol/L; Blood Urea Nitrogen 35 mg/dL (7-17); Carbon Dioxide 21 mmol/L (22-30); Chloride 106 mmol/L (98-107); Glucose 131 mg/dL (74-99); Magnesium 1.6 mg/dL (1.6-2.3); Non-African American GFR(CKD) 18 (>60 ml/min/1.73 sqM); Potassium 4.9 mmol/L (3.5-5.1); Sodium 137 mmol/L (137-145)
[2023-05-26] MEDS ORDERED: FUROSEMIDE 10 MG/ML 2 ML VIAL IV SCH (09:00)
--- NOTE | 2023-05-26 10:12 | P.PN ---
Subjective Progress Note Date: 05/26/23 Pt has not had any further episodes of hypotension. Creatinine is worsening today. Started on Lasix. Gen: In NAD, non-toxic HEENT: normocephalic, atraumatic, hearing acuity is intant, mucous membranes mo ist CVS: perfusing all extremities well, trace pitting edema, Respiratory: symmetric chest expansion, no accessory muscle use, GI: soft, NTTP, ND, : no suprapubic tenderness, no CVA tenderness MSK/Derm: no rashes, cyanosis Neuro: CN II-XII intact, no motor weakness, Psych: cooperative, euthymic mood, judgment and insight is intact Hospital Course: Patient is a 82-year-old female with a PMH of breast cancer status post bilateral mastectomy, COPD on 3 L of cannula oxygen at home, and type II DM, and hypothyroidism who was transferred from [facility] where she presented with complaints of nausea and vomiting. She underwent extensive evaluation at [facility] which was all reviewed. Chest x-ray revealed moderate cardiomegaly with small left-sided pleural effusion without evidence of edema. EKG at our facility revealed sinus rhythm with evidence of right ventricular hypertrophy with poor R-wave progression at 79 bpm. Laboratory evaluation revealed WBC count 6.3, hemoglobin 15.3, platelet, 97, glucose 189, BUN 17, creatinine 1.19, sodium 143, potassium 3.2, magnesium 1.2, chloride 101, troponin T high-sensitivity 26, and proBNP [address] abdomen/pelvis demonstrated ascites. Echocardiogram demonstrated preserved ejection fraction, right ventricular pressure and volume overload with severe pulmonary hypertension Assessment/plan: Right Heart Failure, Acute; Class III pulmonary HTN Elevated troponin Hypotension Nausea and vomiting -Midodrine was started -Lasix is being held as below -Discontinue metoprolol, Cardizem -Cardiology consulted -Monitor on telemetry -Zofran as needed -Oxygen as needed -Patient was started on heparin due to elevated troponin -Obtain lower extremity duplex to rule out DVT -Consideration of VQ scan, however, likely will be a poor study due to patient's underlying lung disease Acute kidney injury -This is likely related to hypotension episodes -Patient was started on midodrine 5 mg AC 3 times daily -Nephrology was consulted given worsening creatinine today -Lasix 20 mg IV, will hold further pushes of Lasix until creatinine starts to improve COPD with chronic hypoxemic respiratory failure Diabetes type 2 Hypothyroidism History of breast cancer -Home medications reviewed and reconciled -Discontinue anastrozole for now DVT prophylaxis: Patient is on therapeutic heparin The patient is admitted with an anticipated greater than 2 midnight stay for evaluation of chf CODE STATUS: No code Discussed with: Patient, daughter Anticipated discharge place: Home Objective - Vital Signs Vital signs: Vital Signs Temp 98.2 F 05/26/23 08:25 Pulse 63 05/26/23 08:25 Resp 20 05/26/23 08:25 BP 111/66 05/26/23 08:25 Pulse Ox 94 L 05/26/23 08:25 FiO2 Intake & Output 05/25/23 05/26/23 05/26/23 18:59 06:59 18:59 Intake Total 30.397 644.516 Balance 30.397 644.516 Intake: Intake, IV Titration 30.397 104.516 Amount Heparin Sod,Pork in 0.45% 30.397 104.516 NaCl 25,000 unit In 0.45 % NaCl 1 250ml.bag @ 12 UNITS/KG/HR 8.328 mls/hr IV .Q24H [facility] Rx#: [id number] Oral 540 Other: Voiding Method Toilet Toilet Toilet # Voids 3 1 # Bowel Movements 1 - Labs CBC & Chem 7: 05/26/23 07:08 05/26/23 07:08 Labs: Abnormal Lab Results - Last 24 Hours (Table) 05/25/23 05/25/23 05/25/23 Range/Units 10:28 10:28 10:28 Hct (34.0-46.0) % MCHC (31.0-37.0) g/dL PT (10.0-12.5) sec INR (<1.2) APTT 45.8 H (22.0-30.0) sec Chloride 108 H (98-107) mmol/L Carbon Dioxide 20 L (22-30) mmol/L BUN 25 H (7-17) mg/dL Creatinine 1.72 H (0.52-1.04) mg/dL Glucose 130 H (74-99) mg/dL POC Glucose (mg/dL) (70-110) mg/dL Hemoglobin A1c 7.0 H (<=6.0) % TSH 5.200 H (0.465-4.680) mIU/L 05/25/23 05/25/23 05/26/23 Range/Units 11:28 16:31 06:13 Hct (34.0-46.0) % MCHC (31.0-37.0) g/dL PT (10.0-12.5) sec INR (<1.2) APTT (22.0-30.0) sec Chloride (98-107) mmol/L Carbon Dioxide (22-30) mmol/L BUN (7-17) mg/dL Creatinine (0.52-1.04) mg/dL Glucose (74-99) mg/dL POC Glucose (mg/dL) 133 H 69 L 169 H (70-110) mg/dL Hemoglobin A1c (<=6.0) % TSH (0.465-4.680) mIU/L 05/26/23 05/26/23 05/26/23 Range/Units 07:08 07:08 07:08 Hct 49.1 H (34.0-46.0) % MCHC 30.9 L (31.0-37.0) g/dL PT 15.6 H (10.0-12.5) sec INR 1.5 H (<1.2) APTT 42.7 H (22.0-30.0) sec Chloride (98-107) mmol/L Carbon Dioxide 21 L (22-30) mmol/L BUN 35 H (7-17) mg/dL Creatinine 2.37 H (0.52-1.04) mg/dL Glucose 131 H (74-99) mg/dL POC Glucose (mg/dL) (70-110) mg/dL Hemoglobin A1c (<=6.0) % TSH (0.465-4.680) mIU/L
--- NOTE | 2023-05-26 10:36 | P.NPCON ---
History of Present Illness - Reason for Consult acute renal failure - History of Present Illness Reason for consultation: Acute kidney injury History of present illness: Patient is 82-year-old female seen in renal consultation for acute kidney injury. Patient's creatinine in November 2022 was 0.69 and was elevated at 1.25 this admission. Renal function has been worsening this admission with creatinine up to 2.37 today. Patient was transferred from another facility due to concern for new onset CHF. Chest x-ray showed trace effusions and BNP was elevated at 8000. Patient denies any lower extremity edema. She does state that her abdomen is quite distended. She underwent CT of the abdomen and pelvis which showed no hydronephrosis. Cirrhotic liver was noted. Small ascites and tiny pleural effusions were noted. Echocardiogram showed preserved ejection fraction with moderate to severe tricuspid regurgitation. She admits to prediabetes. Denies history of coronary artery disease. She does admit to taking 2 Aleve at night. Patient does wear oxygen at home. Patient states her blood pressures been running low for the last 1 month or so. She also admits to intermittent vomiting which now seems to be improved. Oral intake is poor. Denies gross hematuria. Denies family history of renal disease. Vital signs are stable. General: No acute distress. HEENT: Head exam is unremarkable. On nasal cannula. LUNGS: No audible rhonchi or wheezes. HEART: Rate and Rhythm are regular. ABDOMEN: Distention noted. EXTREMITITES: No edema. Past Medical History Past Medical History: Cancer, Chest Pain / Angina, Heart Failure, COPD, Diabetes Mellitus, Eye Disorder, GERD/Reflux, Hyperlipidemia, Hypertension, Osteoarthritis (OA), Pneumonia, Respiratory Disorder, Thyroid Disorder Additional Past Medical History / Comment(s): Pt states she received + covid results on 05/02/20 at [facility] across from [facility]. 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 History of Any Multi-Drug Resistant Organisms: None Reported Past Surgical History: Breast Surgery, Cholecystectomy, Heart Catheterization, Hysterectomy, Orthopedic Surgery Additional Past Surgical History / Comment(s): R mastectomy, R shoulder a rthroscopy, R shoulder benign tumor removed, R knee arthroscopy, renal biopsy-pt cannot recall reason, L eye macular hole with repair, bilateral cataract removals, colonoscopies, R inguinal hernia repair, pt thinks she has had a bronchoscopy in the past. Past Anesthesia/Blood Transfusion Reactions: Previous Problems w/ Anesthesia Additional Past Anesthesia/Blood Transfusion Reaction / Comment(s): Hard time waking up X1. Past Psychological History: Depression Smoking Status: Former smoker Past Alcohol Use History: Rare Past Drug Use History: None Reported - Past Family History Mother Family Medical History: Dementia Father Family Medical History: Cancer Additional Family Medical History / Comment(s): Colon cancer. Sister(s) Family Medical History: Cancer Additional Family Medical History / Comment(s): colon cancer. Medications and Allergies Home Medications Medication Instructions Recorded Confirmed Type FLUoxetine HCL [PROzac] 20 mg PO HS 02/08/18 05/24/23 History Levothyroxine Sodium [Synthroid] 50 mcg PO DAILY 05/05/20 05/24/23 History Nitroglycerin Sl Tabs [Nitrostat] 0.4 mg SL Q5M PRN 05/05/20 05/24/23 History Anastrozole [Arimidex] 1 mg PO DAILY 05/24/23 05/24/23 History Famotidine [Pepcid] 20 mg PO DAILY 05/24/23 05/24/23 History Glimepiride [Amaryl] 2 mg PO AC-BRKFST 05/24/23 05/24/23 History Ketoconazole 2% Cream [Nizoral 2%] 1 applic TOPICAL BID 05/24/23 05/24/23 History Metoprolol Tartrate [Lopressor] 25 mg PO BID 05/24/23 05/24/23 History Ondansetron Odt [Zofran ODT] 4 mg SL TID PRN 05/24/23 05/24/23 History Potassium Chloride ER [K-Dur 20] 20 meq PO DAILY 05/24/23 05/24/23 History dilTIAZem HCL [dilTIAZem HCL 24Hr 180 mg PO DAILY 05/24/23 05/24/23 History ER (Xr)] Allergies Allergy/AdvReac Type Severity Reaction Status Date / Time codeine AdvReac Vomiting Verified 05/24/23 21:15 hydrocodone [From Vicodin] AdvReac Vomiting Verified 05/24/23 21:15 Physical Exam Vitals: Vital Signs Temp Pulse Pulse Resp BP Pulse Ox 05/26/23 08:25 98.2 F 68 63 20 111/66 94 L 05/26/23 04:00 97.9 F 63 16 127/68 94 L 05/26/23 02:00 60 18 05/26/23 00:05 60 18 102/63 92 L 05/25/23 20:10 97.6 F 84 18 103/56 95 05/25/23 20:00 84 18 05/25/23 17:00 52 L 20 118/66 94 L 05/25/23 16:00 49 L 22 83/53 93 L 05/25/23 14:00 61 18 05/25/23 12:00 61 18 106/62 93 L Intake and Output 05/25/23 05/26/23 05/26/23 22:59 06:59 14:59 Intake Total 540 104.516 Balance 540 104.516 Intake: Intake, IV Titration 104.516 Amount Heparin Sod,Pork in 0.45% 104.516 NaCl 25,000 unit In 0.45 % NaCl 1 250ml.bag @ 12 UNITS/KG/HR 8.328 mls/hr IV .Q24H [facility] Rx#: [id number] Oral 540 Other: Voiding Method Toilet Toilet Toilet # Voids 1 # Bowel Movements 1 Results - Lab Results Most recent lab results Calcium 9.0 mg/dL (8.4-10.2) 05/26/23 07:08 Magnesium 1.6 mg/dL (1.6-2.3) 05/26/23 07:08 05/26/23 07:08 05/26/23 07:08 Assessment and Plan Plan: Assessment: 1. Acute kidney injury secondary to ATN secondary to hypotension, cardiorenal syndrome. Creatinine 0.69 in November 2022. Elevated at 1.25 this admission and up to 2.37 today. Rule out urinary retention. No hydronephrosis noted on CAT scan. 2. Volume overload with ascites and effusions noted on CAT scan. 3. Liver cirrhosis. Questionable cause. 4. Acute on chronic diastolic CHF and moderate to severe tricuspid re gurgitation. 5. Breast cancer status post mastectomies. 6. Diabetes mellitus. Plan: Lasix 40 mg IV once this afternoon. Check bladder scan to rule out urinary retention. Check urinalysis. Avoid nephrotoxins, including NSAIDs. Continue to monitor renal function and urine output. Check abdominal ultrasound. Repeat chest x-ray. Case discussed with patient and family present at bedside. Thank you for the consultation. I will continue to follow patient with you during her hospital stay.
--- NOTE | 2023-05-26 11:02 | US ---
EXAMINATION TYPE: US venous doppler duplex LE DATE OF EXAM: 05/26/2023 10:56 AM COMPARISON: NONE CLINICAL INDICATION: Female, 82 years old with history of DVT; rule out DVT SIDE PERFORMED: Bilateral TECHNIQUE: The lower extremity deep venous system is examined utilizing real time linear array sonog marivel with graded compression, doppler sonography and color-flow sonography. VESSELS IMAGED: Common Femoral Vein Deep Femoral Vein Greater Saphenous Vein * Femoral Vein Popliteal Vein Small Saphenous Vein * Proximal Calf Veins (* superficial vessels) Deep venous systems of both lower extremities from the common femoral veins to the proximal calf vein s are patent and compressible with augmentable flow and normal waveforms. exam limited by patient mob ility and edema around left knee IMPRESSION: 1. Limited evaluation by marked swelling around the left knee. 2. No evidence of lower extremity DVT from the common femoral veins to the proximal calf veins with m ild limitation of the left leg as described.
[2023-05-26 11:20] LABS: Glucose,Whole Blood 135 mg/dL (70-110)
[2023-05-26] MEDS ORDERED: FUROSEMIDE 10 MG/ML 4 ML VIAL IV ONE (15:00)
--- NOTE | 2023-05-26 16:16 | US ---
EXAMINATION TYPE: US abdomen limited DATE OF EXAM: 05/26/2023 COMPARISON: CT 05/25/23 CLINICAL INDICATION: Female, 82 years old with history of ascites; ascites check small amount of ascites, mostly on right side adjacent to liver IMPRESSION: As above
[2023-05-26 17:05] LABS: Glucose,Whole Blood 105 mg/dL (70-110)
--- NOTE | 2023-05-26 17:28 | P.PN ---
Subjective Progress Note Date: 05/26/23 Progress Note 113/72, heart rate 68 beats a minute Creatinine 2.37, BUN 35. Creatinine was 1.70 yesterday. History of present illness: This is an 82-year-old female patient of Dr. MELINA Walker with past medical history of hypertension, hyperlipidemia, diabetes mellitus type 2, COPD, pulmonary hypertension, chronic hypoxic respiratory failure on home O2, right breast cancer s/p surgery without chemotherapy or radiation. We have been asked to evaluate the patient for heart failure. Patient states she presented to the hospital due to vomiting and having episodes of lightheadedness for the past 4 weeks that happens occasionally and she thinks it is related to one of her medications breast cancer. She denies having any chest pain and does not feel her symptoms are related to her heart.. EKG sinus rhythm with low voltage WBC 7.8, hemoglobin 15, platelet count 193. INR 1.6. BUN 19 creatinine 1.25. Blood sugar 105. AST 37 otherwise liver function test are normal. Magnesium 1.8. Troponin 0.028, 0.075 and 0.087. proBNP 8130. Echocardiogram reveals moderate to severe RV enlargement. RV to LV ratio is greater than 1. RVH noted. Septal flattening consistent with volume and pressure overload from the right side. EF 50 to 55%. Home cardiac medications: Cardizem XR 180 mg daily, Lopressor 25 mg twice daily, Nitrostat as needed, potassium chloride 20 mEq daily, patient also on levothyroxine 50 mcg daily. Cardiac catheterization history 2009 minimal CAD Dobutamine echocardiogram performed 02/23/2021 revealed patient slightly tachycardic to begin but dobutamine echo was normal with vigorous contractility suggesting no ischemia. Physical examination: NECK: Supple. Has elevated JVD LUNGS: Clear to auscultation. No wheezes or rhonchi. No intercostal retractions. HEART: Regular rate and rhythm. No murmur. ABDOMEN: Soft No tenderness. Distended abdomen EXTREMITIES: No pedal edema. No calf tenderness. NEUROLOGICAL: Patient is awake, alert and oriented x3. Assessment: Mild elevation of troponins less likely to be cardiac, most likely due to chronic hypoxia Nausea and vomiting, likely due to right-sided heart failure Right-sided heart failure Severe pulmonary hypertension, likely grope 3 from advanced COPD COPD Chronic hypoxic respiratory failure on home O2 INES on CKD Hypertension Hyperlipidemia Diabetes mellitus type 2 Right-sided breast cancer s/p surgery Recent echo showed signs of RV dilatation with RV volume and pressure overload with severe pulmonary hypertension preserved LV systolic function. Plan: Agree with IV diuretics. Monitor for urine output. If no urine output, do bladder scan and possibly do a Fenton catheter. Recommend nephrology consult Discontinue IV heparin drip Discontinue midodrine as this might worsen her pulmonary hypertension Start aspirin 81 mg, atorvastatin 40 mg I had a detailed discussion with patient and patient's family present at bedside about patient's long-term stenosis of severe pulmonary hypertension. We had a discussion about limitation off current medical therapy to treat this condition. Family understands the limited options. Focus is to optimize right-sided heart failure, and medical management Objective - Vital Signs Vital signs: Vital Signs Temp 98.4 F 05/26/23 12:00 Pulse 63 05/26/23 14:00 Resp 16 05/26/23 14:00 BP 113/72 05/26/23 12:00 Pulse Ox 95 05/26/23 12:00 FiO2 Intake & Output 05/25/23 05/26/23 05/26/23 18:59 06:59 18:59 Intake Total 30.397 644.516 Balance 30.397 644.516 Intake: Intake, IV Titration 30.397 104.516 Amount Heparin Sod,Pork in 0.45% 30.397 104.516 NaCl 25,000 unit In 0.45 % NaCl 1 250ml.bag @ 12 UNITS/KG/HR 8.328 mls/hr IV .Q24H [facility] Rx#: [id number] Oral 540 Other: Voiding Method Toilet Toilet Toilet # Voids 3 1 2 # Bowel Movements 1 - Labs CBC & Chem 7: 05/26/23 07:08 05/26/23 07:08 Labs: Abnormal Lab Results - Last 24 Hours (Table) 05/25/23 05/26/23 05/26/23 Range/Units 10:28 06:13 07:08 Hct 49.1 H (34.0-46.0) % MCHC 30.9 L (31.0-37.0) g/dL PT (10.0-12.5) sec INR (<1.2) APTT (22.0-30.0) sec Carbon Dioxide (22-30) mmol/L BUN (7-17) mg/dL Creatinine (0.52-1.04) mg/dL Glucose (74-99) mg/dL POC Glucose (mg/dL) 169 H (70-110) mg/dL Hemoglobin A1c 7.0 H (<=6.0) % 05/26/23 05/26/23 05/26/23 Range/Units 07:08 07:08 11:15 Hct (34.0-46.0) % MCHC (31.0-37.0) g/dL PT 15.6 H (10.0-12.5) sec INR 1.5 H (<1.2) APTT 42.7 H (22.0-30.0) sec Carbon Dioxide 21 L (22-30) mmol/L BUN 35 H (7-17) mg/dL Creatinine 2.37 H (0.52-1.04) mg/dL Glucose 131 H (74-99) mg/dL POC Glucose (mg/dL) 135 H (70-110) mg/dL Hemoglobin A1c (<=6.0) %
[2023-05-26] MEDS: ASPIRIN 81 MG PO SCH (18:28)
[2023-05-26] MEDS: ATORVASTATIN 20 MG TAB PO SCH (18:28)
[2023-05-26 18:43] LABS: Appearance,Urine Cloudy (Clear); Bacteria,Urine Rare /hpf; Bilirubin,Urine Negative (Negative); Blood,Urine Negative (Negative); Color,Urine Yellow; Glucose,Urine (UA) Negative (Negative); Hyaline Casts,Urine 4 /lpf (0-2); Ketones,Urine Negative (Negative); Leukocyte Esterase,Urine Large (Negative); Mucus,Urine Rare /hpf; Nitrite,Urine Negative (Negative); Protein,Urine Trace (Negative); RBC,Urine 1 /hpf (0-5); Specific Gravity,Urine 1.014 (1.001-1.035); Squamous Epithelial Cell,Urine 1 /hpf (0-4); Transitional Epi Cells,Urine 1 /hpf (0-1); WBC,Urine 15 /hpf (0-5)
[2023-05-26 20:04] LABS: Glucose,Whole Blood 106 mg/dL (70-110)
[2023-05-26] MEDS: HEPARIN SODIUM,PORCINE 5,000 UNIT/ML 1 ML VIAL SQ SCH (20:34)
[2023-05-26] MEDS: FLUoxetine HCL 20 MG CAP PO SCH (20:35)
[2023-05-27 06:00] LABS: Glucose,Whole Blood 115 mg/dL (70-110)
[2023-05-27] MEDS: INSULIN ASPART (NovoLOG) 100 UNIT/ML VIAL SQ SCH ×4 (06:15→20:38)
[2023-05-27] MEDS: LEVOTHYROXINE 50 MCG TAB PO SCH (06:43)
--- NOTE | 2023-05-27 07:58 | XR ---
EXAMINATION TYPE: XR chest 1V DATE OF EXAM: 05/27/2023 COMPARISON: 05/17/2020 HISTORY: Shortness of breath TECHNIQUE: Single frontal view of the chest is obtained. FINDINGS: There is a large retrocardiac opacity obscuring the left hemidiaphragm and costophrenic angle likely a combination of pleural effusion and atelectasis and/or pneumonic infiltrate.. There are surgical cl ips in the right axilla and there are new surgical clips projecting over the mid to lower lung zone a nd within the left jennifer. The right lung is clear. The pulmonary vasculature is not congested. The osseous structures are intact. IMPRESSION: Development of marked acute cardiopulmonary disease involving the left lung base as desc ribed above.
[2023-05-27 08:16] LABS: African American GFR (CKD) 35 (>60 ml/min/1.73 sqM); Anion Gap 10 mmol/L; Blood Urea Nitrogen 37 mg/dL (7-17); Carbon Dioxide 25 mmol/L (22-30); Chloride 105 mmol/L (98-107); Glucose 94 mg/dL (74-99); Magnesium 1.4 mg/dL (1.6-2.3); Non-African American GFR(CKD) 31 (>60 ml/min/1.73 sqM); Potassium 4.4 mmol/L (3.5-5.1); Sodium 140 mmol/L (137-145)
[2023-05-27] MEDS: HEPARIN SODIUM,PORCINE 5,000 UNIT/ML 1 ML VIAL SQ SCH ×2 (08:16→20:44)
[2023-05-27] MEDS: ATORVASTATIN 20 MG TAB PO SCH (08:16)
[2023-05-27] MEDS: ASPIRIN 81 MG PO SCH (08:16)
--- NOTE | 2023-05-27 09:34 | P.PN ---
Subjective Progress Note Date: 05/27/23 No new complaints, oxygen requirement improviing. CXR personally interpreted today, appears to have worsening left pleural effusion. Gen: In NAD, non-toxic HEENT: normocephalic, atraumatic, hearing acuity is intant, mucous membranes moist CVS: perfusing all extremities well, trace pitting edema, Respiratory: symmetric chest expansion, no accessory muscle use, GI: soft, NTTP, ND, : no suprapubic tenderness, no CVA tenderness MSK/Derm: no rashes, cyanosis Neuro: CN II-XII intact, no motor weakness, Psych: cooperative, euthymic mood, judgment and insight is intact Hospital Course: Patient is a 82-year-old female with a PMH of breast cancer status post bilateral mastectomy, COPD on 3 L of cannula oxygen at home, and type II DM, and hypothyroidism who was transferred from [facility] where she presented with complaints of nausea and vomiting. She underwent extensive evaluation at [facility] which was all reviewed. Chest x-ray revealed moderate cardiomegaly with small left-sided pleural effusion without evidence of edema. EKG at our facility revealed sinus rhythm with evidence of right ventricular hypertrophy with poor R-wave progression at 79 bpm. Laboratory evaluation revealed WBC count 6.3, hemoglobin 15.3, platelet, 97, glucose 189, BUN 17, creatinine 1.19, sodium 143, potassium 3.2, magnesium 1.2, chloride 101, troponin T high-sensitivity 26, and proBNP [address]. [address] abdomen/pelvis demonstrated ascites. Echocardiogram demonstrated preserved ejection fraction, right ventricular pressure and volume overload with severe pulmonary hypertension Assessment/plan: Right Heart Failure, Acute; Class III pulmonary HTN Elevated troponin Hypotension Left pleural effusion Nausea and vomiting -Midodrine was started -Lasix 20mg IV daily -Discontinue metoprolol, Cardizem -Cardiology consulted -Monitor on telemetry -Zofran as needed -Oxygen as needed -Patient was started on heparin due to elevated troponin -Obtain lower extremity duplex to rule out DVT, this was reviewed and negative -Consideration of VQ scan, however, likely will be a poor study due to patient's underlying lung disease -Pulmonology consulted for left pleural effusion Acute kidney injury -This is likely related to hypotension episodes -Patient was started on midodrine 5 mg AC 3 times daily -Nephrology was consulted given worsening creatinine today -Lasix 20 mg IV daily COPD with chronic hypoxemic respiratory failure Diabetes type 2 Hypothyroidism History of breast cancer -Home medications reviewed and reconciled -Discontinue anastrozole for now DVT prophylaxis: Patient is on therapeutic heparin The patient is admitted with an anticipated greater than 2 midnight stay for evaluation of chf CODE STATUS: No code Discussed with: Patient, daughter Anticipated discharge place: Home Objective - Vital Signs Vital signs: Vital Signs Temp 97.5 F L 05/27/23 08:17 Pulse 81 05/27/23 08:17 Resp 16 05/27/23 08:17 BP 134/76 05/27/23 08:17 Pulse Ox 95 05/27/23 08:17 FiO2 Intake & Output 05/26/23 05/27/23 05/27/23 18:59 06:59 18:59 Intake Total 360 240 120 Output Total 850 Balance 360 -610 120 Weight 75 kg Intake: Oral 360 240 120 Output: Urine 850 Other: Voiding Method Toilet Toilet Toilet # Voids 2 - Labs CBC & Chem 7: 05/26/23 07:08 05/27/23 06:46 Labs: Abnormal Lab Results - Last 24 Hours (Table) 05/26/23 05/26/23 05/27/23 Range/Units 11:15 15:30 05:59 BUN (7-17) mg/dL Creatinine (0.52-1.04) mg/dL POC Glucose (mg/dL) 135 H 115 H (70-110) mg/dL Magnesium (1.6-2.3) mg/dL Urine Appearance Cloudy H (Clear) Urine Protein Trace H (Negative) Ur Leukocyte Esterase Large H (Negative) Urine WBC 15 H (0-5) /hpf Urine Bacteria Rare H (None) /hpf Hyaline Casts 4 H (0-2) /lpf Urine Mucus Rare H (None) /hpf 05/27/23 Range/Units 06:46 BUN 37 H (7-17) mg/dL Creatinine 1.55 H (0.52-1.04) mg/dL POC Glucose (mg/dL) (70-110) mg/dL Magnesium 1.4 L (1.6-2.3) mg/dL Urine Appearance (Clear) Urine Protein (Negative) Ur Leukocyte Esterase (Negative) Urine WBC (0-5) /hpf Urine Bacteria (None) /hpf Hyaline Casts (0-2) /lpf Urine Mucus (None) /hpf
--- NOTE | 2023-05-27 10:18 | P.PN ---
Subjective Patient is seen in follow-up for acute kidney injury. Renal function better. Blood pressure controlled. Admits to good urine output. Oral intake fair. Vital signs are stable. General: No acute distress. HEENT: Head exam is unremarkable. LUNGS: No audible rhonchi or wheezes. HEART: Rate and Rhythm are regular. ABDOMEN: Distention noted. Nontender. EXTREMITITES: No edema. Objective - Vital Signs Vital signs: Vital Signs Temp 97.5 F L 05/27/23 08:17 Pulse 81 05/27/23 08:17 Resp 16 05/27/23 08:17 BP 134/76 05/27/23 08:17 Pulse Ox 95 05/27/23 08:17 FiO2 Intake & Output 05/26/23 05/27/23 05/27/23 18:59 06:59 18:59 Intake Total 360 240 120 Output Total 850 Balance 360 -610 120 Weight 75 kg Intake: Oral 360 240 120 Output: Urine 850 Other: Voiding Method Toilet Toilet Toilet # Voids 2 - Labs CBC & Chem 7: 05/26/23 07:08 05/27/23 06:46 Labs: Abnormal Lab Results - Last 24 Hours (Table) 05/26/23 05/26/23 05/27/23 Range/Units 11:15 15:30 05:59 BUN (7-17) mg/dL Creatinine (0.52-1.04) mg/dL POC Glucose (mg/dL) 135 H 115 H (70-110) mg/dL Magnesium (1.6-2.3) mg/dL Urine Appearance Cloudy H (Clear) Urine Protein Trace H (Negative) Ur Leukocyte Esterase Large H (Negative) Urine WBC 15 H (0-5) /hpf Urine Bacteria Rare H (None) /hpf Hyaline Casts 4 H (0-2) /lpf Urine Mucus Rare H (None) /hpf 05/27/23 Range/Units 06:46 BUN 37 H (7-17) mg/dL Creatinine 1.55 H (0.52-1.04) mg/dL POC Glucose (mg/dL) (70-110) mg/dL Magnesium 1.4 L (1.6-2.3) mg/dL Urine Appearance (Clear) Urine Protein (Negative) Ur Leukocyte Esterase (Negative) Urine WBC (0-5) /hpf Urine Bacteria (None) /hpf Hyaline Casts (0-2) /lpf Urine Mucus (None) /hpf Assessment and Plan Plan: Assessment: 1. Acute kidney injury secondary to ATN secondary to hypotension, cardiorenal syndrome. Creatinine 0.69 in November 2022. Elevated at 1.25 this admission and up to 2.37 dated 05/26/2023 - improved to 1.55 today. No hydronephrosis noted on CAT scan. UA fairly benign. 2. Volume overload with ascites and effusions noted on CAT scan. 3. Liver cirrhosis. Questionable cause. 4. Acute on chronic diastolic CHF and moderate to severe tricuspid regurgitation. 5. Breast cancer status post mastectomies. 6. Diabetes mellitus. 7. Hypomagnesemia from diuresis. Plan: Add IV Lasix 40 mg once daily. Avoid nephrotoxins, including NSAIDs. Continue to monitor renal function and urine output. Replace magnesium.
[2023-05-27 11:49] LABS: Glucose,Whole Blood 115 mg/dL (70-110)
[2023-05-27] MEDS: FUROSEMIDE 10 MG/ML 4 ML VIAL IV SCH (12:01)
[2023-05-27] MEDS: MAGNESIUM SULFATE-D5W PMX 1 GM in DEXTROSE/WATER 1 100ML.BAG IVPB SCH ×2 (12:01→16:32)
--- NOTE | 2023-05-27 13:11 | P.PN ---
Subjective Progress Note Date: 05/27/23 Progress Note 05/27/2023 Normotensive. Creatinine 1.5. Improved from yesterday. Patient is responding well to IV diuretics. Continue gentle diuretics. 05/26/2023 113/72, heart rate 68 beats a minute Creatinine 2.37, BUN 35. Creatinine was 1.70 yesterday. History of present illness: This is an 82-year-old female patient of Dr. MELINA Walker with past medical history of hypertension, hyperlipidemia, diabetes mellitus type 2, COPD, pulmonary hypertension, chronic hypoxic respiratory failure on home O2, right breast cancer s/p surgery without chemotherapy or radiation. We have been asked to evaluate the patient for heart failure. Patient states she presented to the hospital due to vomiting and having episodes of lightheadedness for the past 4 weeks that happens occasionally and she thinks it is related to one of her medications breast cancer. She denies having any chest pain and does not feel her symptoms are related to her heart.. EKG sinus rhythm with low voltage WBC 7.8, hemoglobin 15, platelet count 193. INR 1.6. BUN 19 creatinine 1.25. Blood sugar 105. AST 37 otherwise liver function test are normal. Magnesium 1.8. Troponin 0.028, 0.075 and 0.087. proBNP 8130. Echocardiogram reveals moderate to severe RV enlargement. RV to LV ratio is greater than 1. RVH noted. Septal flattening consistent with volume and pressure overload from the right side. EF 50 to 55%. Home cardiac medications: Cardizem XR 180 mg daily, Lopressor 25 mg twice daily, Nitrostat as needed, potassium chloride 20 mEq daily, patient also on levothyroxine 50 mcg daily. Cardiac catheterization history 2009 minimal CAD Dobutamine echocardiogram performed 02/23/2021 revealed patient slightly tachycardic to begin but dobutamine echo was normal with vigorous contractility suggesting no ischemia. Physical examination: NECK: Supple. Has elevated JVD LUNGS: Clear to auscultation. No wheezes or rhonchi. No intercostal retractions. HEART: Regular rate and rhythm. No murmur. ABDOMEN: Soft No tenderness. Distended abdomen EXTREMITIES: No pedal edema. No calf tenderness. NEUROLOGICAL: Patient is awake, alert and oriented x3. Assessment: Mild elevation of troponins less likely to be cardiac, most likely due to chronic hypoxia Nausea and vomiting, likely due to right-sided heart failure Right-sided heart failure Severe pulmonary hypertension, likely grope 3 from advanced COPD COPD Chronic hypoxic respiratory failure on home O2 INES on CKD Hypertension Hyperlipidemia Diabetes mellitus type 2 Right-sided breast cancer s/p surgery Recent echo showed signs of RV dilatation with RV volume and pressure overload with severe pulmonary hypertension preserved LV systolic function. Plan: Agree with IV diuretics. Monitor for urine output. If no urine output, do bladder scan and possibly do a Fenton catheter. Recommend nephrology consult Discontinue IV heparin drip Discontinue midodrine as this might worsen her pulmonary hypertension Supplemental oxygen for pulmonary hypertension Start aspirin 81 mg, atorvastatin 40 mg I had a detailed discussion with patient and patient's family present at bedside about patient's long-term stenosis of severe pulmonary hypertension. We had a discussion about limitation off current medical therapy to treat this condition. Family understands the limited options. Focus is to optimize right-sided heart failure, and medical management Objective - Vital Signs Vital signs: Vital Signs Temp 97.5 F L 05/27/23 12:00 Pulse 92 05/27/23 12:00 Resp 16 05/27/23 12:00 BP 116/59 05/27/23 12:00 Pulse Ox 92 L 05/27/23 12:00 FiO2 Intake & Output 05/26/23 05/27/23 05/27/23 18:59 06:59 18:59 Intake Total 360 240 120 Output Total 850 Balance 360 -610 120 Weight 75 kg Intake: Oral 360 240 120 Output: Urine 850 Other: Voiding Method Toilet Toilet Toilet # Voids 2 - Labs CBC & Chem 7: 05/26/23 07:08 05/27/23 06:46 Labs: Abnormal Lab Results - Last 24 Hours (Table) 05/26/23 05/27/23 05/27/23 Range/Units 15:30 05:59 06:46 BUN 37 H (7-17) mg/dL Creatinine 1.55 H (0.52-1.04) mg/dL POC Glucose (mg/dL) 115 H (70-110) mg/dL Magnesium 1.4 L (1.6-2.3) mg/dL Urine Appearance Cloudy H (Clear) Urine Protein Trace H (Negative) Ur Leukocyte Esterase Large H (Negative) Urine WBC 15 H (0-5) /hpf Urine Bacteria Rare H (None) /hpf Hyaline Casts 4 H (0-2) /lpf Urine Mucus Rare H (None) /hpf 05/27/23 Range/Units 11:47 BUN (7-17) mg/dL Creatinine (0.52-1.04) mg/dL POC Glucose (mg/dL) 115 H (70-110) mg/dL Magnesium (1.6-2.3) mg/dL Urine Appearance (Clear) Urine Protein (Negative) Ur Leukocyte Esterase (Negative) Urine WBC (0-5) /hpf Urine Bacteria (None) /hpf Hyaline Casts (0-2) /lpf Urine Mucus (None) /hpf
--- NOTE | 2023-05-27 15:58 | P.CNPUL ---
History of Present Illness Consult date: 05/27/23 Reason for consult: pleural effusion History of present illness: This is a 38-year-old female patient who was transferred to us from [facility] because of nausea and emesis and episodes of lightheadedness for the past 4 weeks. Denies having any chest pain. I was asked to evaluate this patient for a left-sided pleural effusion. The patient was hospital is on 05/25/2023. The patient was seen by cardiology in the medical team. She is known to have COPD and she has no maintenance on Trelegy Ellipta on outpatient basis. She is also using oxygen on outpatient basis between 2 and 3 L/m nasal cannula. She has chronic hypoxic respiratory failure. FEV1 is in order of 55% of predicted. She has had previous episodes of the left lower lobe pneumonia following an elective colonoscopy and this occurred 2 years back. She recovered from that. She has hypertension, hypothyroidism, hyperlipidemia and previous history of breast cancer and the patient has undergone left mastectomy, did not require radiation therapy and she is currently on Arimidex.. In times of the cardiac workup that was done during this current admission, the patient had an echocardiogram that showed moderate to severe RV enlargement, RV generation was greater than 1. LDH was noted and there was also flattening of the septum and volume/pressure overload and the right side. Left ejection fraction was 50-55%. ProBNP was 8130 and the troponins were 0.02 and 0.07 0.08 respectively. Creatinine is at 1.25 with a BUN of 19. Cardiac catheterization from 2009 showed minimal disease and obesity stress echo on 02/23/2021 showed no evidence of any reversible ischemia. The patient is currently on Lasix 40 mg IV every 24 hours. Chest x-ray showed a showed atelectasis/small left-sided pleural effusion. The CAT scan of the abdomen and pelvis was also done in time admission that showed a very small left-sided pleural effusion. There is also c irrhotic changes involving the liver and new small amount of intraperitoneal ascites throughout the abdomen. Review of Systems Constitutional: No fever, no chills. No weakness, fatigue or lethargy. EENT: No headache. No dizziness. Lungs: No shortness of breath, cough, no sputum production. No wheezing. Cardiovascular: No chest pain, no lower extremity edema. No palpitations. No paroxysmal nocturnal dyspnea. No orthopnea. No lightheadedness or dizziness. No syncopal episodes. Abdominal: No abdominal pain. Reports vomiting. No diarrhea. No constipation. No bloody or tarry stools. Musculoskeletal: No myalgias. No muscle weakness, no frequent falls. Integumentary: No wounds. No rash. No unusual bruising. Neurologic: No aphasia. No facial droop. No change in mentation. No head injury. No headache. Past Medical History Past Medical History: Cancer, Chest Pain / Angina, Heart Failure, COPD, Diabetes Mellitus, Eye Disorder, GERD/Reflux, Hyperlipidemia, Hypertension, Osteoarthritis (OA), Pneumonia, Respiratory Disorder, Thyroid Disorder Additional Past Medical History / Comment(s): Pt states she received + covid results on 05/02/20 at a [facility] across from [facility]. 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 History of Any Multi-Drug Resistant Organisms: None Reported Past Surgical History: Breast Surgery, Cholecystectomy, Heart Catheterization, Hysterectomy, Orthopedic Surgery Additional Past Surgical History / Comment(s): R mastectomy, R shoulder arthroscopy, R shoulder benign tumor removed, R knee arthroscopy, renal biopsy- pt cannot recall reason, L eye macular hole with repair, bilateral cataract removals, colonoscopies, R inguinal hernia repair, pt thinks she has had a bronchoscopy in the past. Past Anesthesia/Blood Transfusion Reactions: Previous Problems w/ Anesthesia Additional Past Anesthesia/Blood Transfusion Reaction / Comment(s): Hard time waking up X1. Past Psychological History: Depression Smoking Status: Former smoker Past Alcohol Use History: Rare Past Drug Use History: None Reported - Past Family History Mother Family Medical History: Dementia Father Family Medical History: Cancer Additional Family Medical History / Comment(s): Colon cancer. Sister(s) Family Medical History: Cancer Additional Family Medical History / Comment(s): colon cancer. Medications and Allergies Home Medications Medication Instructions Recorded Confirmed Type RX: FLUoxetine HCL [PROzac] 20 mg PO HS 02/08/18 05/24/23 History RX: Levothyroxine Sodium 50 mcg PO DAILY 05/05/20 05/24/23 History [Synthroid] RX: Nitroglycerin Sl Tabs 0.4 mg SL Q5M PRN 05/05/20 05/24/23 History [Nitrostat] Anastrozole [Arimidex] 1 mg PO DAILY 05/24/23 05/24/23 History Famotidine [Pepcid] 20 mg PO DAILY 05/24/23 05/24/23 History Glimepiride [Amaryl] 2 mg PO AC-BRKFST 05/24/23 05/24/23 History Ketoconazole 2% Cream [Nizoral 2%] 1 applic TOPICAL BID 05/24/23 05/24/23 History Metoprolol Tartrate [Lopressor] 25 mg PO BID 05/24/23 05/24/23 History Ondansetron Odt [Zofran ODT] 4 mg SL TID PRN 05/24/23 05/24/23 History Potassium Chloride ER [K-Dur 20] 20 meq PO DAILY 05/24/23 05/24/23 History dilTIAZem HCL [dilTIAZem HCL 24Hr 180 mg PO DAILY 05/24/23 05/24/23 History ER (Xr)] Allergies Allergy/AdvReac Type Severity Reaction Status Date / Time codeine AdvReac Vomiting Verified 05/24/23 21:15 hydrocodone [From Vicodin] AdvReac Vomiting Verified 05/24/23 21:15 Physical Exam Vitals: Vital Signs Temp Pulse Pulse Resp BP BP Pulse Ox 05/27/23 12:00 97.5 F L 92 16 116/59 92 L 05/27/23 08:17 97.5 F L 82 81 16 134/76 95 05/27/23 04:44 81 14 127/52 94 L 05/27/23 01:39 78 16 05/26/23 23:54 78 16 102/63 94 L 05/26/23 20:31 98.0 F 76 16 158/78 94 L 05/26/23 20:00 76 16 05/26/23 16:00 98.3 F 77 16 148/76 97 05/26/23 14:00 68 63 16 Intake and Output 05/26/23 05/27/23 05/27/23 22:59 06:59 14:59 Intake Total 480 120 Output Total 400 450 Balance 80 -450 120 Intake: Oral 480 120 Output: Urine 400 450 Other: Voiding Method Toilet Toilet Toilet Weight 75 kg The patient is calm and comfortable comfortable currently on 3 L of O2 nasal cannula with a pulse ox 92% Head exam was generally normal. There was no scleral icterus or corneal arcus. Mucous membranes were moist. Neck was supple and without jugular venous distension, thyromegaly, or carotid bruits. Carotids were easily palpable bilaterally. There was no adenopathy. . LUNGS: Clear to auscultation. No wheezes or rhonchi. No intercostal retractions. HEART: Regular rate and rhythm. No murmur. ABAbdominal exam revealed normal bowel sounds. The abdomen was soft, non-tender, and without masses, organomegaly, or appreciable enlargement of the abdominal aorta. EXTREMITIES: No pedal edema. No calf tenderness. NEUNeurologically, the patient is awake and alert and the patient does not have any focal neurological deficit. Cranial nerves are essentially intact. Results - Laboratory Findings CBC and BMP: 05/26/23 07:08 05/27/23 06:46 PT/INR, D-dimer PT 15.6 sec (10.0-12.5) H 05/26/23 07:08 INR 1.5 (<1.2) H 05/26/23 07:08 Abnormal lab findings: Abnormal Labs 05/24/23 05/24/23 05/24/23 19:51 19:51 22:31 Hct 47.2 H MCHC PT INR APTT Potassium 3.4 L Chloride Carbon Dioxide 31 H BUN 19 H Creatinine 1.25 H Glucose 105 H POC Glucose (mg/dL) Hemoglobin A1c Magnesium AST 37 H Troponin I 0.075 H* TSH Urine Appearance Urine Protein Ur Leukocyte Esterase Urine WBC Urine Bacteria Hyaline Casts Urine Mucus 05/25/23 05/25/23 05/25/23 00:28 03:50 03:50 Hct 48.7 H MCHC 30.9 L PT 16.2 H INR 1.6 H APTT 121.4 H* Potassium Chloride Carbon Dioxide BUN Creatinine Glucose POC Glucose (mg/dL) Hemoglobin A1c Magnesium AST Troponin I 0.087 H* TSH Urine Appearance Urine Protein Ur Leukocyte Esterase Urine WBC Urine Bacteria Hyaline Casts Urine Mucus 05/25/23 05/25/23 05/25/23 10:28 10:28 10:28 Hct MCHC PT INR APTT 45.8 H Potassium Chloride 108 H Carbon Dioxide 20 L BUN 25 H Creatinine 1.72 H Glucose 130 H POC Glucose (mg/dL) Hemoglobin A1c 7.0 H Magnesium AST Troponin I TSH 5.200 H Urine Appearance Urine Protein Ur Leukocyte Esterase Urine WBC Urine Bacteria Hyaline Casts Urine Mucus 05/25/23 05/25/23 05/26/23 11:28 16:31 06:13 Hct MCHC PT INR APTT Potassium Chloride Carbon Dioxide BUN Creatinine Glucose POC Glucose (mg/dL) 133 H 69 L 169 H Hemoglobin A1c Magnesium AST Troponin I TSH Urine Appearance Urine Protein Ur Leukocyte Esterase Urine WBC Urine Bacteria Hyaline Casts Urine Mucus 05/26/23 05/26/23 05/26/23 07:08 07:08 07:08 Hct 49.1 H MCHC 30.9 L PT 15.6 H INR 1.5 H APTT 42.7 H Potassium Chloride Carbon Dioxide 21 L BUN 35 H Creatinine 2.37 H Glucose 131 H POC Glucose (mg/dL) Hemoglobin A1c Magnesium AST Troponin I TSH Urine Appearance Urine Protein Ur Leukocyte Esterase Urine WBC Urine Bacteria Hyaline Casts Urine Mucus 05/26/23 05/26/23 05/27/23 11:15 15:30 05:59 Hct MCHC PT INR APTT Potassium Chloride Carbon Dioxide BUN Creatinine Glucose POC Glucose (mg/dL) 135 H 115 H Hemoglobin A1c Magnesium AST Troponin I TSH Urine Appearance Cloudy H Urine Protein Trace H Ur Leukocyte Esterase Large H Urine WBC 15 H Urine Bacteria Rare H Hyaline Casts 4 H Urine Mucus Rare H 05/27/23 05/27/23 06:46 11:47 Hct MCHC PT INR APTT Potassium Chloride Carbon Dioxide BUN 37 H Creatinine 1.55 H Glucose POC Glucose (mg/dL) 115 H Hemoglobin A1c Magnesium 1.4 L AST Troponin I TSH Urine Appearance Urine Protein Ur Leukocyte Esterase Urine WBC Urine Bacteria Hyaline Casts Urine Mucus - Diagnostic Findings Chest x-ray: image reviewed Assessment and Plan Plan: Small left-sided pleural effusion. In fact the patient is very small bilateral pleural effusion which is slightly larger on the left. This is not amenable for thoracentesis at this point in time. Please refer to the CAT scan of the abdomen that showed the pleural effusions and his are very tiny at this point. Could be related to chronic right-sided heart failure and liver cirrhosis. COPD, currently inactive and stable Chronic hypoxic respiratory failure and oxygen requirements have remained unchanged Nausea and emesis, improved and the patient had a CAT scan of the abdomen that showed cardiomegaly with tiny pericardial effusion, chronic liver cirrhosis lung with small ascites and small bilateral pleural effusions. Severe right-sided heart failure with pulmonary hypertension and right-sided volume and fluid overload, currently on diuretics Abnormal troponins, real estate teacher on the case Acute kidney injury, could be related to diabetes and hypertension. The patient was started on midodrine and ic design manager on the case. The patient is receiving 40 mg of IV Lasix on a daily basis Diabetes mellitus type 2 Hypothyroidism Previous history of breast cancer maintained on Demadex which is currently on hold Plan Continue diuresis No role for thoracentesis of the fluid on the left is very tiny COPD is currently inactive and stable O2 requirements have remained unchanged the patient remains on 3 L of O2 nasal cannula Right-sided heart failure is probably related to chronic COPD and hypoxic respiratory failure Avoid nephrotoxic agents Voice hepatotoxic agents We'll continue to follow
[2023-05-27 16:26] LABS: Glucose,Whole Blood 140 mg/dL (70-110)
[2023-05-27 19:43] LABS: Glucose,Whole Blood 103 mg/dL (70-110)
[2023-05-27] MEDS: FLUoxetine HCL 20 MG CAP PO SCH (20:44)
[2023-05-28] MEDS ORDERED: CALCIUM CARBONATE 500 MG CHEWABLE PO PRN (00:41)
[2023-05-28 05:39] LABS: Glucose,Whole Blood 123 mg/dL (70-110)
[2023-05-28] MEDS: LEVOTHYROXINE 50 MCG TAB PO SCH (05:57)
[2023-05-28] MEDS: INSULIN ASPART (NovoLOG) 100 UNIT/ML VIAL SQ SCH ×4 (06:35→20:15)
[2023-05-28 08:30] LABS: Basophils % (A) 1 %; Eosinophils # (A) 0.1 k/uL (0-0.7); Eosinophils % (A) 3 %; HGB 13.4 gm/dL (11.4-16.0); Hypochromasia Slight; Lymphocytes # (A) 0.9 k/uL (1.0-4.8); Lymphocytes % (A) 22 %; MCH 30.5 pg (25.0-35.0); MCHC 32.6 g/dL (31.0-37.0); MCV 93.5 fL (80.0-100.0); Mean Platelet Volume 8.8; Monocytes # (A) 0.4 k/uL (0-1.0); Monocytes % (A) 9 %; Neutrophils # (A) 2.7 k/uL (1.3-7.7); Neutrophils % (A) 64 %; Platelet Count 151 k/uL (150-450); RBC 4.38 m/uL (3.80-5.40); RDW 13.4 % (11.5-15.5); WBC 4.3 k/uL (3.8-10.6)
[2023-05-28] MEDS: ATORVASTATIN 20 MG TAB PO SCH (08:47)
[2023-05-28] MEDS: FUROSEMIDE 10 MG/ML 4 ML VIAL IV SCH (08:47)
[2023-05-28] MEDS: ASPIRIN 81 MG PO SCH (08:47)
[2023-05-28] MEDS: HEPARIN SODIUM,PORCINE 5,000 UNIT/ML 1 ML VIAL SQ SCH ×2 (08:48→20:14)
[2023-05-28 09:16] LABS: African American GFR (CKD) 78 (>60 ml/min/1.73 sqM); Anion Gap 10 mmol/L; Blood Urea Nitrogen 28 mg/dL (7-17); Carbon Dioxide 28 mmol/L (22-30); Chloride 102 mmol/L (98-107); Glucose 110 mg/dL (74-99); Magnesium 1.3 mg/dL (1.6-2.3); Non-African American GFR(CKD) 67 (>60 ml/min/1.73 sqM); Sodium 140 mmol/L (137-145)
--- NOTE | 2023-05-28 10:48 | P.PN ---
Subjective Patient is seen for follow-up for acute kidney injury. Renal function has improved. Currently being diuresed. No complaints of shortness of breath. Serum creatinine 0.8 today Objective - Vital Signs Vital signs: Vital Signs Temp 98 F 05/28/23 08:45 Pulse 95 05/28/23 08:45 Resp 18 05/28/23 08:45 BP 159/85 05/28/23 08:45 Pulse Ox 94 L 05/28/23 08:45 FiO2 Intake & Output 05/27/23 05/28/23 05/28/23 18:59 06:59 18:59 Intake Total 480 10 Output Total 800 1900 Balance -320 -1900 10 Weight 68.9 kg Intake: Oral 480 10 Output: Urine 800 1900 Other: Voiding Method Toilet Toilet - Exam Patient is awake, comfortable, no acute distress Alert oriented 3 Examination of the heart S1 and S2 Examination of the lungs decreased breath sounds at the bases no crackles or wheezing is heard Examination of lower extremities shows trace edema ELECTRICAL SUPERINTENDENT exam grossly intact - Labs CBC & Chem 7: 05/28/23 06:22 05/28/23 06:22 Labs: Abnormal Lab Results - Last 24 Hours (Table) 05/27/23 05/27/23 05/28/23 Range/Units 11:47 16:17 05:37 Lymphocytes # (1.0-4.8) k/uL BUN (7-17) mg/dL Glucose (74-99) mg/dL POC Glucose (mg/dL) 115 H 140 H 123 H (70-110) mg/dL Magnesium (1.6-2.3) mg/dL 05/28/23 05/28/23 Range/Units 06:22 06:22 Lymphocytes # 0.9 L (1.0-4.8) k/uL BUN 28 H (7-17) mg/dL Glucose 110 H (74-99) mg/dL POC Glucose (mg/dL) (70-110) mg/dL Magnesium 1.3 L (1.6-2.3) mg/dL Assessment and Plan Assessment: 1. Acute kidney injury secondary to ATN secondary to hypotension, cardiorenal syndrome. Creatinine 0.69 in November 2022. Elevated at 1.25 this admission and up to 2.37 dated 05/26/2023 - improved to 0.8 today. No hydronephrosis noted on CAT scan. UA fairly benign. 2. Volume overload with ascites and effusions noted on CAT scan. 3. Liver cirrhosis. Questionable cause. 4. Acute on chronic diastolic CHF and moderate to severe tricuspid regurgitation. 5. Breast cancer status post mastectomies. 6. Diabetes mellitus. 7. Hypomagnesemia from diuresis. Plan: Continue current dose of Lasix.
[2023-05-28 11:28] LABS: Glucose,Whole Blood 116 mg/dL (70-110)
--- NOTE | 2023-05-28 11:55 | P.PN ---
Subjective Progress Note Date: 05/28/23 No new complaints, oxygen requirement back to baseline. Pulmonology consult pending Gen: In NAD, non-toxic HEENT: normocephalic, atraumatic, hearing acuity is intant, mucous membranes moist CVS: perfusing all extremities well, trace pitting edema, Respiratory: symmetric chest expansion, no accessory muscle use, GI: soft, NTTP, ND, : no suprapubic tenderness, no CVA tenderness MSK/Derm: no rashes, cyanosis Neuro: CN II-XII intact, no motor weakness, Psych: cooperative, euthymic mood, judgment and insight is intact Hospital Course: Patient is a 82-year-old female with a PMH of breast cancer status post bilateral mastectomy, COPD on 3 L of cannula oxygen at home, and type II DM, and hypothyroidism who was transferred from [facility] where she presented with complaints of nausea and vomiting. She underwent extensive evaluation at [facility] which was all reviewed. Chest x-ray revealed moderate cardiomegaly with small left-sided pleural effusion without evidence of edema. EKG at our facility revealed sinus rhythm with evidence of right ventricular hypertrophy with poor R-wave progression at 79 bpm. Laboratory evaluation revealed WBC count 6.3, hemoglobin 15.3, platelet, 97, glucose 189, BUN 17, creatinine 1.19, sodium 143, potassium 3.2, magnesium 1.2, chloride 101, troponin T high-sensitivity 26, and proBNP [address]. [address] abdomen/pelvis demonstrated ascites. Echocardiogram demonstrated preserved ejection fraction, right ventricular pressure and volume overload with severe pulmonary hypertension Assessment/plan: Right Heart Failure, Acute; Class III pulmonary HTN Elevated troponin Hypotension Left pleural effusion Nausea and vomiting -Midodrine was started -Lasix 20mg IV daily -Discontinue metoprolol, Cardizem -Cardiology consulted -Monitor on telemetry -Zofran as needed -Oxygen as needed -Patient was started on heparin due to elevated troponin -Obtain lower extremity duplex to rule out DVT, this was reviewed and negative -Consideration of VQ scan, however, likely will be a poor study due to patient's underlying lung disease -Pulmonology consulted for left pleural effusion Acute kidney injury -This is likely related to hypotension episodes -Patient was started on midodrine 5 mg AC 3 times daily, this was discontinued by cardiology due to concern over worsening pHTN -Nephrology was consulted given worsening creatinine, creatinine has improved to normal with diuretics -Lasix 40 mg IV daily COPD with chronic hypoxemic respiratory failure Diabetes type 2 Hypothyroidism History of breast cancer -Home medications reviewed and reconciled -Discontinue anastrozole for now DVT prophylaxis: Patient is on therapeutic heparin The patient is admitted with an anticipated greater than 2 midnight stay for evaluation of chf CODE STATUS: No code Discussed with: Patient, daughter Anticipated discharge place: Home Objective - Vital Signs Vital signs: Vital Signs Temp 98 F 05/28/23 08:45 Pulse 95 05/28/23 08:45 Resp 18 05/28/23 08:45 BP 159/85 05/28/23 08:45 Pulse Ox 94 L 05/28/23 08:45 FiO2 Intake & Output 05/27/23 05/28/23 05/28/23 18:59 06:59 18:59 Intake Total 480 10 Output Total 800 1900 700 Balance -320 1900 -690 Weight 68.9 kg Intake: Oral 480 10 Output: Urine 800 1900 700 Other: Voiding Method Toilet Toilet Toilet - Labs CBC & Chem 7: 05/28/23 06:22 05/28/23 06:22 Labs: Abnormal Lab Results - Last 24 Hours (Table) 05/27/23 05/28/23 05/28/23 Range/Units 16:17 05:37 06:22 Lymphocytes # (1.0-4.8) k/uL BUN 28 H (7-17) mg/dL Glucose 110 H (74-99) mg/dL POC Glucose (mg/dL) 140 H 123 H (70-110) mg/dL Magnesium 1.3 L (1.6-2.3) mg/dL 05/28/23 05/28/23 Range/Units 06:22 11:24 Lymphocytes # 0.9 L (1.0-4.8) k/uL BUN (7-17) mg/dL Glucose (74-99) mg/dL POC Glucose (mg/dL) 116 H (70-110) mg/dL Magnesium (1.6-2.3) mg/dL
--- NOTE | 2023-05-28 12:09 | P.PN ---
Subjective HISTORY OF PRESENT ILLNESS: This is an 82-year-old female who follows in the office with Dr. Walker. Patient examined this morning at the bedside. Patient continues to report shortness of breath and states that her breathing feels labored this morning. She denies any chest pain or pressure. She remains on IV Lasix 40 mg daily. Echocardiogram completed this admission revealed ejection fraction 50-55%, trace mitral regu rgitation, moderate to severe tricuspid regurgitation, and severe pulmonary hypertension. PHYSICAL EXAM: VITAL SIGNS: Reviewed. GENERAL: Well-developed in no acute distress. NECK: Supple. No JVD or thyromegaly LUNGS: Respirations even and unlabored. Lungs essentially clear to auscultation bilaterally, diminished. HEART: Regular rate and rhythm. S1 and S2 heard. EXTREMITIES: Normal range of motion. No clubbing or cyanosis. Peripheral pulses intact. No lower extremity edema ASSESSMENT: Nausea and vomiting Acute on chronic heart failure with preserved EF, 50-55%, right sided Severe pulmonary hypertension Mildly elevated troponins, no evidence of acute coronary syndrome COPD Chronic hypoxic respiratory failure on home oxygen Acute on chronic kidney disease Hypertension Hyperlipidemia Diabetes History of right-sided breast cancer with previous surgical intervention Hypomagnesemia PLAN: Continue current cardiac medications Continue IV Lasix 40 mg daily Daily weights, accurate I&O, monitor kidney function Replace magnesium Further recommendations pending patient's course Nurse practitioner note has been reviewed by physician. Signing provider agrees with the documented findings, assessment, and plan of care. Objective - Vital Signs Vital signs: Vital Signs Temp 98 F 05/28/23 08:45 Pulse 95 05/28/23 08:45 Resp 18 05/28/23 08:45 BP 159/85 05/28/23 08:45 Pulse Ox 94 L 05/28/23 08:45 FiO2 Intake & Output 05/27/23 05/28/23 05/28/23 18:59 06:59 18:59 Intake Total 480 10 Output Total 800 1900 700 Balance -320 -1900 -690 Weight 68.9 kg Intake: Oral 480 10 Output: Urine 800 1900 700 Other: Voiding Method Toilet Toilet Toilet - Labs CBC & Chem 7: 05/28/23 06:22 05/28/23 06:22 Labs: Abnormal Lab Results - Last 24 Hours (Table) 05/27/23 05/28/23 05/28/23 Range/Units 16:17 05:37 06:22 Lymphocytes # (1.0-4.8) k/uL BUN 28 H (7-17) mg/dL Glucose 110 H (74-99) mg/dL POC Glucose (mg/dL) 140 H 123 H (70-110) mg/dL Magnesium 1.3 L (1.6-2.3) mg/dL 05/28/23 05/28/23 Range/Units 06:22 11:24 Lymphocytes # 0.9 L (1.0-4.8) k/uL BUN (7-17) mg/dL Glucose (74-99) mg/dL POC Glucose (mg/dL) 116 H (70-110) mg/dL Magnesium (1.6-2.3) mg/dL
[2023-05-28] MEDS: MAGNESIUM SULFATE-D5W PMX 1 GM in DEXTROSE/WATER 1 100ML.BAG IVPB SCH ×2 (12:32→17:19)
--- NOTE | 2023-05-28 14:37 | P.PN ---
Subjective Progress Note Date: 05/28/23 Principal diagnosis: Bilateral pleural effusions, cardiomegaly, pericardial effusion, chronic liver cirrhosis and ascites This is a 38-year-old female patient who was transferred to us from [facility] because of nausea and emesis and episodes of lightheadedness for the past 4 weeks. Denies having any chest pain. I was asked to evaluate this patient for a left-sided pleural effusion. The patient was hospital is on 05/25/2023. The patient was seen by cardiology in the medical team. She is known to have COPD and she has no maintenance on Trelegy Ellipta on outpatient basis. She is also using oxygen on outpatient basis between 2 and 3 L/m nasal cannula. She has chronic hypoxic respiratory failure. FEV1 is in order of 55% of predicted. She has had previous episodes of the left lower lobe pneumonia following an elective colonoscopy and this occurred 2 years back. She recovered from that. She has hypertension, hypothyroidism, hyperlipidemia and previous history of breast cancer and the patient has undergone left mastectomy, did not require radiation therapy and she is currently on Arimidex.. In times of the cardiac workup that was done during this current admission, the patient had an echocardiogram that showed moderate to severe RV enlargement, RV generation was greater than 1. LDH was noted and there was also flattening of the septum and volume/pressure overload and the right side. Left ejection fraction was 50-55%. ProBNP was 8130 and the troponins were 0.02 and 0.07 0.08 respectively. Creatinine is at 1.25 with a BUN of 19. Cardiac catheterization from 2009 showed minimal disease and obesity stress echo on 02/23/2021 showed no evidence of any reversible ischemia. The patient is currently on Lasix 40 mg IV every 24 hours. Chest x-ray showed a showed atelectasis/small left-sided pleural effusion. The CAT scan of the abdomen and pelvis was also done in time admission that showed a very small left-sided pleural effusion. There is also cirrhotic changes involving the liver and new small amount of intraperitoneal as cites throughout the abdomen. Patient was reevaluated today on 05/28/23, patient is feeling better compared to how she felt when she came in, no further episodes of nausea and vomiting, remains on 3 L nasal cannula and her O2 sats is 93%. Patient does have history of underlying COPD, FEV1 is normal in the range of 55%, and she is known to have history of chronic hypoxic respiratory failure. I reviewed the CT of the abdomen and pelvis on this patient, and the pleural effusion seems to be very s mall, it is definitely not amendable to thoracentesis. WBC count is 4.3 hemoglobin 13.4 electrodes are normal renal profile is normal Objective - Vital Signs Vital signs: Vital Signs Temp 97.4 F L 05/28/23 12:30 Pulse 101 H 05/28/23 12:30 Resp 16 05/28/23 12:30 BP 150/71 05/28/23 12:30 Pulse Ox 93 L 05/28/23 12:30 FiO2 Intake & Output 05/27/23 05/28/23 05/28/23 18:59 06:59 18:59 Intake Total 480 128 Output Total 800 1900 700 Balance -320 -1900 -572 Weight 68.9 kg Intake: Oral 480 128 Output: Urine 800 1900 700 Other: Voiding Method Toilet Toilet Toilet - Exam Physical Exam: Revealed an 82-year-old female in no distress, on 3 L. Head: Atraumatic normocephalic. HEENT:[Neck is supple.] [No neck masses.] [No thyromegaly.] [No JVD.] Chest: [Diminished breath sounds at the bases no crackles or rhonchi or wheezes Cardiac Exam: [Normal S1 and S2, no S3 gallop, no murmur.] Abdomen: [Soft, nontender, no megaly, no rebound, no guarding, normal bowel sounds.] Extremities: [No clubbing, no edema, no cyanosis.] Neurological Exam: [No focal neurologic deficit.] Alert oriented 3 Psychiatric: Normal mood, affect and normal status examination Skin: No rashes - Labs CBC & Chem 7: 05/28/23 06:22 05/28/23 06:22 Labs: Abnormal Lab Results - Last 24 Hours (Table) 05/27/23 05/28/23 05/28/23 Range/Units 16:17 05:37 06:22 Lymphocytes # (1.0-4.8) k/uL BUN 28 H (7-17) mg/dL Glucose 110 H (74-99) mg/dL POC Glucose (mg/dL) 140 H 123 H (70-110) mg/dL Magnesium 1.3 L (1.6-2.3) mg/dL 05/28/23 05/28/23 Range/Units 06:22 11:24 Lymphocytes # 0.9 L (1.0-4.8) k/uL BUN (7-17) mg/dL Glucose (74-99) mg/dL POC Glucose (mg/dL) 116 H (70-110) mg/dL Magnesium (1.6-2.3) mg/dL Assessment and Plan Assessment: Impression: Chronic hypoxic respiratory failure Small bilateral pleural effusions Acute on chronic diastolic congestive heart failure Severe underlying COPD Liver cirrhosis and small ascites Acute kidney injury secondary to diabetes and hypertension Type 2 diabetes Hypothyroidism History of breast cancer maintained on arimedex Recommendation: continue present supportive care measures no plans for thoracentesis Continue oxygen and titrate accordingly Continue bronchodilators Continue diuretics Avoid nephrotoxic and hepatotoxic drugs. Resume home meds We will continue to follow Time with Patient: Less than 30
[2023-05-28 16:40] LABS: Glucose,Whole Blood 125 mg/dL (70-110)
[2023-05-28] MEDS: CLOTRIMAZOLE 1% CREAM 30 GM TUBE TOPICAL SCH ×2 (17:19→20:18)
[2023-05-28 19:54] LABS: Glucose,Whole Blood 198 mg/dL (70-110)
[2023-05-28] MEDS: FLUoxetine HCL 20 MG CAP PO SCH (20:15)
[2023-05-29 05:44] LABS: Glucose,Whole Blood 95 mg/dL (70-110)
[2023-05-29] MEDS: INSULIN ASPART (NovoLOG) 100 UNIT/ML VIAL SQ SCH ×4 (06:35→20:07)
[2023-05-29] MEDS: LEVOTHYROXINE 50 MCG TAB PO SCH (06:39)
[2023-05-29] MEDS: HEPARIN SODIUM,PORCINE 5,000 UNIT/ML 1 ML VIAL SQ SCH ×2 (08:47→20:28)
[2023-05-29] MEDS: ATORVASTATIN 20 MG TAB PO SCH (08:47)
[2023-05-29] MEDS: FUROSEMIDE 40 MG TAB PO SCH (08:47)
[2023-05-29] MEDS: ASPIRIN 81 MG PO SCH (08:47)
[2023-05-29] MEDS: CLOTRIMAZOLE 1% CREAM 30 GM TUBE TOPICAL SCH ×2 (08:48→20:29)
[2023-05-29 09:02] LABS: African American GFR (CKD) >90 (>60 ml/min/1.73 sqM); Anion Gap 8 mmol/L; Blood Urea Nitrogen 16 mg/dL (7-17); Calcium 9.2 mg/dL (8.4-10.2); Carbon Dioxide 36 mmol/L (22-30); Chloride 97 mmol/L (98-107); Glucose 98 mg/dL (74-99); Magnesium 1.3 mg/dL (1.6-2.3); Non-African American GFR(CKD) 84 (>60 ml/min/1.73 sqM); Potassium 3.7 mmol/L (3.5-5.1); Sodium 141 mmol/L (137-145)
--- NOTE | 2023-05-29 09:46 | P.PN ---
Subjective HISTORY OF PRESENT ILLNESS: This is an 82-year-old female who follows in the office with Dr. Walker. Patient examined this morning at the bedside. Patient continues to report shortness of breath and states that her breathing feels labored this morning. She denies any chest pain or pressure. She remains on IV Lasix 40 mg daily. Echocardiogram completed this admission revealed ejection fraction 50-55%, trace mitral regu rgitation, moderate to severe tricuspid regurgitation, and severe pulmonary hypertension. May 30, 2023 Patient examined this morning at bedside. Patient denies chest pain or pressure. She denies shortness of breath. Vital signs are stable. Telemetry reveals sinus mechanism with heart in the 90s. She currently is on IV Lasix 40 mg daily. Magnesium remains low today at 1.3. PHYSICAL EXAM: VITAL SIGNS: Reviewed. GENERAL: Well-developed in no acute distress. NECK: Supple. No JVD or thyromegaly LUNGS: Respirations even and unlabored. Lungs essentially clear to auscultation bilaterally. HEART: Regular rate and rhythm. S1 and S2 heard. EXTREMITIES: Normal range of motion. No clubbing or cyanosis. Peripheral pulses intact. No lower extremity edema ASSESSMENT: Nausea and vomiting Acute on chronic heart failure with preserved EF, 50-55%, right sided Severe pulmonary hypertension Mildly elevated troponins, no evidence of acute coronary syndrome COPD Chronic hypoxic respiratory failure on home oxygen Acute on chronic kidney disease Hypertension Hyperlipidemia Diabetes History of right-sided breast cancer with previous surgical intervention Hypomagnesemia PLAN: Continue current cardiac medications Discontinue IV Lasix. Begin oral Lasix 40 mg daily Daily weights, accurate I&O, monitor kidney function Replace magnesium Further recommendations pending patient's course Nurse practitioner note has been reviewed by physician. Signing provider agrees with the documented findings, assessment, and plan of care. Objective - Vital Signs Vital signs: Vital Signs Temp 98.0 F 05/29/23 07:56 Pulse 96 05/29/23 07:56 Resp 16 05/29/23 07:56 BP 151/76 05/29/23 07:56 Pulse Ox 95 05/29/23 07:56 FiO2 Intake & Output 05/28/23 05/29/23 05/29/23 18:59 06:59 18:59 Intake Total 246 128 Output Total 1700 800 800 Balance -1454 -800 -672 Weight 66.9 kg Intake: IV 10 Invasive Line 4 10 Oral 246 118 Output: Urine 1400 500 800 Stool 300 300 Other: Voiding Method Toilet Toilet - Labs CBC & Chem 7: 05/28/23 06:22 05/29/23 06:45 Labs: Abnormal Lab Results - Last 24 Hours (Table) 05/28/23 05/28/23 05/28/23 Range/Units 11:24 16:37 19:52 Chloride (98-107) mmol/L Carbon Dioxide (22-30) mmol/L POC Glucose (mg/dL) 116 H 125 H 198 H (70-110) mg/dL Magnesium (1.6-2.3) mg/dL 05/29/23 Range/Units 06:45 Chloride 97 L (98-107) mmol/L Carbon Dioxide 36 H (22-30) mmol/L POC Glucose (mg/dL) (70-110) mg/dL Magnesium 1.3 L (1.6-2.3) mg/dL
[2023-05-29 11:22] LABS: Glucose,Whole Blood 141 mg/dL (70-110)
[2023-05-29] MEDS: MAGNESIUM SULFATE-D5W PMX 1 GM in DEXTROSE/WATER 1 100ML.BAG IVPB SCH ×2 (11:32→12:49)
--- NOTE | 2023-05-29 12:47 | P.PN ---
Subjective Progress Note Date: 05/29/23 Hospital Course: Patient is a 82-year-old female with a PMH of breast cancer status post bilateral mastectomy, COPD on 3 L of cannula oxygen at home, and type II DM, and hypothyroidism who was transferred from [facility] where she presented with complaints of nausea and vomiting. She underwent extensive evaluation at [facility] which was all reviewed. Chest x-ray revealed moderate cardiomegaly with small left-sided pleural effusion without evidence of edema. EKG at our facility revealed sinus rhythm with evidence of right ventricular hypertrophy with poor R-wave progression at 79 bpm. Laboratory evaluation revealed WBC count 6.3, hemoglobin 15.3, platelet, 97, glucose 189, BUN 17, creatinine 1.19, sodium 143, potassium 3.2, magnesium 1.2, chloride 101, troponin T high-sensitivity 26, and proBNP 8102 with lactic acid 4.5. CT abdomen/pelvis demonstrated ascites. Echocardiogram demonstrated preserved ejection fraction, right ventricular pressure and volume overload with severe pulmonary hypertension Today patient states that she is feeling good. She denies any acute complaints. She states that her fluid is mainly on her abdomen which is decreasing. 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 Creatinine has normalized. Today creatinine is 0.61. BUN is 16 Hypomagnesemia Magnesium is 1.3 Will give patient a total of 1600 mg of magnesium oxide today oral COPD with chronic hypoxemic respiratory failure Patient currently satting well on her home O2 Type 2 diabetes Sliding scale insulin Hypothyroidism Resume levothyroxine History of breast cancer Resume anastrozole on discharge Anticipate patient be ready for discharge tomorrow Objective - Vital Signs Vital signs: Vital Signs Temp 98.0 F 05/29/23 07:56 Pulse 101 H 05/29/23 11:36 Resp 18 05/29/23 11:36 BP 153/82 05/29/23 11:36 Pulse Ox 94 L 05/29/23 11:36 FiO2 Intake & Output 05/28/23 05/29/23 05/29/23 18:59 06:59 18:59 Intake Total 246 128 Output Total 2445 448 5000 Balance -3902 -341 -5824 Weight 66.9 kg Intake: IV 10 Invasive Line 4 10 Oral 246 118 Output: Urine 9043 471 3409 Stool 300 300 Other: Voiding Method Toilet Toilet Toilet - Labs CBC & Chem 7: 05/28/23 06:22 05/29/23 06:45 Labs: Abnormal Lab Results - Last 24 Hours (Table) 05/28/23 05/28/23 05/29/23 Range/Units 16:37 19:52 06:45 Chloride 97 L (98-107) mmol/L Carbon Dioxide 36 H (22-30) mmol/L POC Glucose (mg/dL) 125 H 198 H (70-110) mg/dL Magnesium 1.3 L (1.6-2.3) mg/dL 05/29/23 Range/Units 11:20 Chloride (98-107) mmol/L Carbon Dioxide (22-30) mmol/L POC Glucose (mg/dL) 141 H (70-110) mg/dL Magnesium (1.6-2.3) mg/dL
[2023-05-29] MEDS: MAGNESIUM OXIDE 400 MG TAB PO SCH ×2 (12:56→20:28)
[2023-05-29 13:20] VITALS: BMI 25.3
--- NOTE | 2023-05-29 13:22 | P.PN ---
Subjective Progress Note Date: 05/29/23 Principal diagnosis: Bilateral pleural effusions, cardiomegaly, pericardial effusion, chronic liver cirrhosis and ascites This is a 38-year-old female patient who was transferred to us from [facility] because of nausea and emesis and episodes of lightheadedness for the past 4 weeks. Denies having any chest pain. I was asked to evaluate this patient for a left-sided pleural effusion. The patient was hospital is on 05/25/2023. The patient was seen by cardiology in the medical team. She is known to have COPD and she has no maintenance on Trelegy Ellipta on outpatient basis. She is also using oxygen on outpatient basis between 2 and 3 L/m nasal cannula. She has chronic hypoxic respiratory failure. FEV1 is in order of 55% of predicted. She has had previous episodes of the left lower lobe pneumonia following an elective colonoscopy and this occurred 2 years back. She recovered from that. She has hypertension, hypothyroidism, hyperlipidemia and previous history of breast cancer and the patient has undergone left mastectomy, did not require radiation therapy and she is currently on Arimidex.. In times of the cardiac workup that was done during this current admission, the patient had an echocardiogram that showed moderate to severe RV enlargement, RV generation was greater than 1. LDH was noted and there was also flattening of the septum and volume/pressure overload and the right side. Left ejection fraction was 50-55%. ProBNP was 8130 and the troponins were 0.02 and 0.07 0.08 respectively. Creatinine is at 1.25 with a BUN of 19. Cardiac catheterization from 2009 showed minimal disease and obesity stress echo on 02/23/2021 showed no evidence of any reversible ischemia. The patient is currently on Lasix 40 mg IV every 24 hours. Chest x-ray showed a showed atelectasis/small left-sided pleural effusion. The CAT scan of the abdomen and pelvis was also done in time admission that showed a very small left-sided pleural effusion. There is also cirrhotic changes involving the liver and new small amount of intraperitoneal as cites throughout the abdomen. Patient was reevaluated today on 05/28/23, patient is feeling better compared to how she felt when she came in, no further episodes of nausea and vomiting, remains on 3 L nasal cannula and her O2 sats is 93%. Patient does have history of underlying COPD, FEV1 is normal in the range of 55%, and she is known to have history of chronic hypoxic respiratory failure. I reviewed the CT of the abdomen and pelvis on this patient, and the pleural effusion seems to be very s mall, it is definitely not amendable to thoracentesis. WBC count is 4.3 hemoglobin 13.4 electrodes are normal renal profile is normal Patient was reevaluated today on 05/29/2023, patient seems to be doing well today, hardly any active pulmonary symptoms, no cough no wheezing no shortness of breath.WBC count is 8.7 hemoglobin is 8.8 remains on 3 L nasal cannula, O2 saturation ranging between 94 up to 96%. Last chest x-ray from the showed lactobacillus and small left pleural effusion, did not feel the pleural effusion was large enough to consider safe thoracentesis. And the recommendation was to medically manage rather than thoracentesis, labs today are unremarkable, she has a relatively normal basic metabolic profile and normal renal profile Objective - Vital Signs Vital signs: Vital Signs Temp 98.0 F 05/29/23 07:56 Pulse 101 H 05/29/23 11:36 Resp 18 05/29/23 11:36 BP 153/82 05/29/23 11:36 Pulse Ox 94 L 05/29/23 11:36 FiO2 Intake & Output 05/28/23 05/29/23 05/29/23 18:59 06:59 18:59 Intake Total 246 246 Output Total 3917 063 9889 Balance -1454 -800 -1604 Weight 66.9 kg 66.9 kg Intake: IV 10 Invasive Line 4 10 Oral 246 236 Output: Urine 5583 353 9709 Stool 300 300 Other: Voiding Method Toilet Toilet Toilet - Exam Physical Exam: Revealed an 82-year-old female in no distress, on 3 L. Head: Atraumatic normocephalic. HEENT:[Neck is supple.] [No neck masses.] [No thyromegaly.] [No JVD.] Chest: [Diminished breath sounds at the bases no crackles or rhonchi or wheezes Cardiac Exam: [Normal S1 and S2, no S3 gallop, no murmur.] Abdomen: [Soft, nontender, no megaly, no rebound, no guarding, normal bowel sounds.] Extremities: [No clubbing, no edema, no cyanosis.] Neurological Exam: [No focal neurologic deficit.] Alert oriented 3 Psychiatric: Normal mood, affect and normal status examination Skin: No rashes - Labs CBC & Chem 7: 05/28/23 06:22 05/29/23 06:45 Labs: Abnormal Lab Results - Last 24 Hours (Table) 05/28/23 05/28/23 05/29/23 Range/Units 16:37 19:52 06:45 Chloride 97 L (98-107) mmol/L Carbon Dioxide 36 H (22-30) mmol/L POC Glucose (mg/dL) 125 H 198 H (70-110) mg/dL Magnesium 1.3 L (1.6-2.3) mg/dL 05/29/23 Range/Units 11:20 Chloride (98-107) mmol/L Carbon Dioxide (22-30) mmol/L POC Glucose (mg/dL) 141 H (70-110) mg/dL Magnesium (1.6-2.3) mg/dL Assessment and Plan Assessment: Impression: Chronic hypoxic respiratory failure Small bilateral pleural effusions, not large enough to consider thoracentesis Acute on chronic diastolic congestive heart failure Severe underlying COPD Liver cirrhosis and small ascites Acute kidney injury secondary to diabetes and hypertension Type 2 diabetes Hypothyroidism History of breast cancer maintained on arimedex Recommendation: continue present supportive care measures no plans for thoracentesis Continue oxygen and titrate accordingly Continue bronchodilators Continue diuretics Consider discharge planning in the next 24 hours if cleared by other consultants on the case We will continue to follow for now Time with Patient: Less than 30
--- NOTE | 2023-05-29 16:21 | P.PN ---
Subjective Patient is seen for follow-up for acute kidney injury. Renal function has improved. Currently being diuresed. No complaints of shortness of breath. Serum creatinine 0.6 today Objective - Vital Signs Vital signs: Vital Signs Temp 98.1 F 05/29/23 15:49 Pulse 95 05/29/23 15:49 Resp 18 05/29/23 15:49 BP 156/87 05/29/23 15:49 Pulse Ox 94 L 05/29/23 15:49 FiO2 Intake & Output 05/28/23 05/29/23 05/29/23 18:59 06:59 18:59 Intake Total 246 246 Output Total 6918 015 6982 Balance -8509 -034 -9560 Weight 66.9 kg 66.9 kg Intake: IV 10 Invasive Line 4 10 Oral 246 236 Output: Urine 4229 111 3348 Stool 300 300 Other: Voiding Method Toilet Toilet Toilet - Exam Patient is awake, comfortable, no acute distress Alert oriented 3 Examination of the heart S1 and S2 Examination of the lungs decreased breath sounds at the bases no crackles or wheezing is heard Examination of lower extremities shows 1+ edema 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 Acute kidney injury secondary to ATN secondary to hypotension, cardiorenal syndrome. Creatinine 0.69 in November 2022. Elevated at 1.25 this admission and up to 2.37 dated 05/26/2023 - improved to 0.6 today. No hydronephrosis noted on CAT scan. UA fairly benign. 2. Volume overload with ascites and effusions noted on CAT scan. 3. Liver cirrhosis. Questionable cause. 4. Acute on chronic diastolic CHF and moderate to severe tricuspid regurgitation. 5. Breast cancer status post mastectomies. 6. Diabetes mellitus. 7. Hypomagnesemia from diuresis. Plan: Stable for discharge from nephrology standpoint
[2023-05-29 16:39] LABS: Glucose,Whole Blood 128 mg/dL (70-110)
[2023-05-29 20:01] LABS: Glucose,Whole Blood 139 mg/dL (70-110)
[2023-05-29] MEDS: FLUoxetine HCL 20 MG CAP PO SCH (20:28)
[2023-05-29] MEDS: ACETAMINOPHEN TAB 325 MG TAB PO PRN (23:32)
[2023-05-30 06:07] LABS: Glucose,Whole Blood 123 mg/dL (70-110)
[2023-05-30] MEDS: INSULIN ASPART (NovoLOG) 100 UNIT/ML VIAL SQ SCH ×2 (06:28→12:44)
[2023-05-30] MEDS: ACETAMINOPHEN TAB 325 MG TAB PO PRN ×2 (06:41→10:55)
[2023-05-30] MEDS: LEVOTHYROXINE 50 MCG TAB PO SCH (06:41)
[2023-05-30 08:17] LABS: Basophils % (A) 1 %; Eosinophils # (A) 0.2 k/uL (0-0.7); Eosinophils % (A) 4 %; HCT 48.8 % (34.0-46.0); HGB 15.5 gm/dL (11.4-16.0); Lymphocytes # (A) 1.1 k/uL (1.0-4.8); Lymphocytes % (A) 26 %; MCH 29.5 pg (25.0-35.0); MCHC 31.8 g/dL (31.0-37.0); MCV 92.7 fL (80.0-100.0); Mean Platelet Volume 9.2; Monocytes # (A) 0.5 k/uL (0-1.0); Monocytes % (A) 12 %; Neutrophils # (A) 2.2 k/uL (1.3-7.7); Neutrophils % (A) 55 %; Platelet Count 174 k/uL (150-450); RBC 5.27 m/uL (3.80-5.40); RDW 13.5 % (11.5-15.5); WBC 4.1 k/uL (3.8-10.6)
[2023-05-30] MEDS: ATORVASTATIN 20 MG TAB PO SCH (08:34)
[2023-05-30] MEDS: ASPIRIN 81 MG PO SCH (08:34)
[2023-05-30] MEDS: HEPARIN SODIUM,PORCINE 5,000 UNIT/ML 1 ML VIAL SQ SCH (08:34)
[2023-05-30] MEDS: FUROSEMIDE 40 MG TAB PO SCH (08:34)
[2023-05-30] MEDS: CLOTRIMAZOLE 1% CREAM 30 GM TUBE TOPICAL SCH (08:35)
[2023-05-30 08:38] VITALS: RESP 16; TEMP 97.5
[2023-05-30 08:41] LABS: African American GFR (CKD) >90 (>60 ml/min/1.73 sqM); Anion Gap 9 mmol/L; Blood Urea Nitrogen 14 mg/dL (7-17); Calcium 9.8 mg/dL (8.4-10.2); Carbon Dioxide 35 mmol/L (22-30); Chloride 95 mmol/L (98-107); Glucose 115 mg/dL (74-99); Magnesium 1.7 mg/dL (1.6-2.3); Non-African American GFR(CKD) 83 (>60 ml/min/1.73 sqM); Potassium 3.6 mmol/L (3.5-5.1); Sodium 139 mmol/L (137-145)
[2023-05-30] MEDS ORDERED: DILTIAZEM CD 180 MG CAP.ER.24H PO SCH (09:45)
--- NOTE | 2023-05-30 10:31 | P.PN ---
Subjective Patient is seen for follow-up for acute kidney injury. Renal function has improved. Currently being diuresed. Lasix has been decreased to 40 mg oral daily No complaints of shortness of breath. Serum creatinine 0.6 today Objective - Vital Signs Vital signs: Vital Signs Temp 97.5 F L 05/30/23 07:25 Pulse 93 05/30/23 07:25 Resp 16 05/30/23 07:25 BP 164/91 05/30/23 07:25 Pulse Ox 94 L 05/30/23 07:25 FiO2 Intake & Output 05/29/23 05/30/23 05/30/23 18:59 06:59 18:59 Intake Total 482 128 Output Total 3050 1100 800 Balance -6973 -1045 -392 Weight 66.9 kg 65 kg Intake: IV 10 10 Invasive Line 4 10 10 Oral 472 118 Output: Urine 3050 800 800 Stool 300 Other: Voiding Method Toilet Toilet Toilet # Bowel Movements 1 - Exam Patient is awake, comfortable, no acute distress Alert oriented 3 Examination of the heart S1 and S2 Examination of the lungs decreased breath sounds at the bases no crackles or wheezing is heard Examination of lower extremities shows no significant edema 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 Acute kidney injury secondary to ATN secondary to hypotension, cardiorenal syndrome. Creatinine 0.69 in November 2022. Elevated at 1.25 this admission and up to 2.37 dated 05/26/2023 - improved to 0.6 today. No hydronephrosis noted on CAT scan. UA fairly benign. 2. Volume overload with ascites and effusions noted on CAT scan. 3. Liver cirrhosis. Questionable cause. 4. Acute on chronic diastolic CHF and moderate to severe tricuspid regurgitation. 5. Breast cancer status post mastectomies. 6. Diabetes mellitus. 7. Hypomagnesemia from diuresis. Plan: Stable for discharge from nephrology standpoint
--- NOTE | 2023-05-30 10:31 | P.PN ---
Subjective HISTORY OF PRESENT ILLNESS: This is an 82-year-old female who follows in the office with Dr. Walker. Patient examined this morning at the bedside. Patient continues to report shortness of breath and states that her breathing feels labored this morning. She denies any chest pain or pressure. She remains on IV Lasix 40 mg daily. Echocardiogram completed this admission revealed ejection fraction 50-55%, trace mitral regu rgitation, moderate to severe tricuspid regurgitation, and severe pulmonary hypertension. May 30, 2023 Patient examined this morning at bedside. Patient denies chest pain or pressure. She denies shortness of breath. Vital signs are stable. Telemetry reveals sinus mechanism with heart in the 90s. She currently is on IV Lasix 40 mg daily. Magnesium remains low today at 1.3. May 31, 2023 Patient examined this morning at the bedside. Patient states she is feeling well today. She denies chest pain or pressure. She denies any shortness of breath. Patient's blood pressures are elevated this morning with a systolic in the 160s. She remains on oral diuretics. Creatinine today 0.61. Magnesium 1.7. PHYSICAL EXAM: VITAL SIGNS: Reviewed. GENERAL: Well-developed in no acute distress. NECK: Supple. No JVD or thyromegaly LUNGS: Respirations even and unlabored. Lungs essentially clear to auscultation bilaterally. HEART: Regular rate and rhythm. S1 and S2 heard. EXTREMITIES: Normal range of motion. No clubbing or cyanosis. Peripheral pulses intact. No lower extremity edema ASSESSMENT: Nausea and vomiting Acute on chronic heart failure with preserved EF, 50-55%, right sided Severe pulmonary hypertension Mildly elevated troponins, no evidence of acute coronary syndrome COPD Chronic hypoxic respiratory failure on home oxygen Acute on chronic kidney disease Hypertension Hyperlipidemia Diabetes History of right-sided breast cancer with previous surgical intervention Hypomagnesemia PLAN: Continue current cardiac medications Resume home dose of Cardizem secondary to elevated blood pressure this morning Daily weights, accurate I&O, monitor kidney function Patient is currently stable from a cardiac perspective Nurse practitioner note has been reviewed by physician. Signing provider agrees with the documented findings, assessment, and plan of care. Objective - Vital Signs Vital signs: Vital Signs Temp 97.5 F L 05/30/23 07:25 Pulse 93 05/30/23 07:25 Resp 16 05/30/23 07:25 BP 164/91 05/30/23 07:25 Pulse Ox 94 L 05/30/23 07:25 FiO2 Intake & Output 05/29/23 05/30/23 05/30/23 18:59 06:59 18:59 Intake Total 482 128 Output Total 3050 1100 800 Balance -2568 -1100 -672 Weight 66.9 kg 65 kg Intake: IV 10 10 Invasive Line 4 10 10 Oral 472 118 Output: Urine 3050 800 800 Stool 300 Other: Voiding Method Toilet Toilet Toilet # Bowel Movements 1 - Labs CBC & Chem 7: 05/30/23 06:57 05/30/23 06:57 Labs: Abnormal Lab Results - Last 24 Hours (Table) 05/29/23 05/29/23 05/29/23 Range/Units 11:20 16:37 19:59 Hct (34.0-46.0) % Chloride (98-107) mmol/L Carbon Dioxide (22-30) mmol/L Glucose (74-99) mg/dL POC Glucose (mg/dL) 141 H 128 H 139 H (70-110) mg/dL 05/30/23 05/30/23 05/30/23 Range/Units 06:06 06:57 06:57 Hct 48.8 H (34.0-46.0) % Chloride 95 L (98-107) mmol/L Carbon Dioxide 35 H (22-30) mmol/L Glucose 115 H (74-99) mg/dL POC Glucose (mg/dL) 123 H (70-110) mg/dL
[2023-05-30] MEDS ORDERED: POTASSIUM CHLORIDE ER 20 MEQ TAB.ER PO STA (10:44)
[2023-05-30 11:10] VITALS: PULSE 100
--- NOTE | 2023-05-30 11:20 | P.DS ---
Providers Date of admission: 05/24/23 19:39 Attending physician: Dahlia Almeida MD Consults: 05/24/23 19:38 Consult Physician Routine Consulting Provider: Rock Walker Consult Reason/Comments: CHF Do you want consulting provider notified?: Yes 05/26/23 09:34 Consult Physician Routine Consulting Provider: Lior Bragg Consult Reason/Comments: elevated labs no urine with lasix Do you want consulting provider notified?: Yes 05/27/23 09:32 Consult Physician Routine Consulting Provider: Thanh Awad Consult Reason/Comments: left pleural effusion Do you want consulting provider notified?: Yes Primary care physician: Teresa Pratt MD Hospital Course: Discharge Diagnosis: Right heart failure Class III pulm hypertension Elevated troponin Hypertension Left pleural effusion Hypomagnesemia COPD with chronic hypoxemic respiratory failure on 3 L nasal cannula Type 2 diabetes mellitus Hypothyroidism History of breast cancer Hospital Course: Patient is a 82-year-old female with a PMH of breast cancer status post bilateral mastectomy, COPD on 3 L of cannula oxygen at home, and type II DM, and hypothyroidism who was transferred from [facility] where she presented with complaints of nausea and vomiting. She underwent extensive evaluation at [facility] which was all reviewed. Chest x-ray revealed moderate cardiomegaly with small left-sided pleural effusion without evidence of edema. EKG at our facility revealed sinus rhythm with evidence of right ventricular hypertrophy with poor R-wave progression at 79 bpm. Laboratory evaluation revealed WBC count 6.3, hemoglobin 15.3, platelet, 97, glucose 189, BUN 17, creatinine 1.19, sodium 143, potassium 3.2, magnesium 1.2, chloride 101, troponin T high-sensitivity 26, and proBNP [address] abdomen/pelvis demonstrated ascites. Echocardiogram demonstrated preserved ejection fraction, right ventricular pressure and volume overload with severe pulmonary hypertension Patient was being followed by cardiology. Patient started on IV diuretics. Once patient was euvolemic she was transition to oral Lasix. At the time of discharge patient reported improvement in her shortness of breath. She was also satting well on her home O2 of 3 L. Initially when patient came in she was hypotensive. Metoprolol and Cardizem were discontinued. Patient blood pressure did improve. She was restarted on Cardizem. Patient is also being followed by pulmonology. Per pulmonology no need for thoracentesis at this time. Patient's acute kidney injury also improved likely due to the episodes of hypotension. Renal function at the time of discharge normalized. Patient deemed stable for discharge. She was instructed to follow-up with cardiology. Patient seen and examined at bedside on 05/30/2023.[] Vital signs reviewed and stable. 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 Patient Condition at Discharge: Stable Plan - Discharge Summary Discharge Rx Participant: Yes New Discharge Prescriptions: New Aspirin 81 mg PO DAILY 30 Days #30 tab Furosemide [Lasix] 40 mg PO DAILY 30 Days #30 tab Atorvastatin [Lipitor] 20 mg PO DAILY 30 Days #30 tab Continue FLUoxetine HCL [PROzac] 20 mg PO HS Nitroglycerin Sl Tabs [Nitrostat] 0.4 mg SL Q5M PRN PRN Reason: Chest Pain Levothyroxine Sodium [Synthroid] 50 mcg PO DAILY Potassium Chloride ER [K-Dur 20] 20 meq PO DAILY Glimepiride [Amaryl] 2 mg PO AC-BRKFST Famotidine [Pepcid] 20 mg PO DAILY dilTIAZem HCL [dilTIAZem HCL 24Hr ER (Xr)] 180 mg PO DAILY Ketoconazole 2% Cream [Nizoral 2%] 1 applic TOPICAL BID Anastrozole [Arimidex] 1 mg PO DAILY Ondansetron Odt [Zofran ODT] 4 mg SL TID PRN PRN Reason: Nausea Discontinued Metoprolol Tartrate [Lopressor] 25 mg PO BID Discharge Medication List FLUoxetine HCL [PROzac] 20 mg PO HS 02/08/18 [History] Levothyroxine Sodium [Synthroid] 50 mcg PO DAILY 05/05/20 [History] Nitroglycerin Sl Tabs [Nitrostat] 0.4 mg SL Q5M PRN 05/05/20 [History] Anastrozole [Arimidex] 1 mg PO DAILY 05/24/23 [History] Famotidine [Pepcid] 20 mg PO DAILY 05/24/23 [History] Glimepiride [Amaryl] 2 mg PO AC-BRKFST 05/24/23 [History] Ketoconazole 2% Cream [Nizoral 2%] 1 applic TOPICAL BID 05/24/23 [History] Ondansetron Odt [Zofran ODT] 4 mg SL TID PRN 05/24/23 [History] Potassium Chloride ER [K-Dur 20] 20 meq PO DAILY 05/24/23 [History] dilTIAZem HCL [dilTIAZem HCL 24Hr ER (Xr)] 180 mg PO DAILY 05/24/23 [History] Aspirin 81 mg PO DAILY 30 Days #30 tab 05/30/23 [Rx] Atorvastatin [Lipitor] 20 mg PO DAILY 30 Days #30 tab 05/30/23 [Rx] Furosemide [Lasix] 40 mg PO DAILY 30 Days #30 tab 05/30/23 [Rx] Follow up Appointment(s)/Referral(s): [facility], [NON-STAFF] - Ced Mcfarlane MD [STAFF PHYSICIAN] - 1 Week Teresa Pratt MD [Primary Care Provider] - 1-2 days Discharge Disposition: HOME WITH HOME HEALTH SERVICES
[2023-05-30 11:35] LABS: Glucose,Whole Blood 124 mg/dL (70-110)
[2023-05-30 13:17] VITALS: BP 141/77
== END 2023-05-30 14:52 | disposition home health service (06) | DRG 291 ==
LOC: EC 18:54 → 3SCARD 19:39
PROVIDERS: ADMIT Internal Medicine; ATTEND Internal Medicine
PROC: 3E0F7SF Introduction of Other Gas into Respiratory Tract, Via Natural or Artificial Opening (ICD-10-PCS; principal; 2023-05-24)
DX: I13.0 Hypertensive heart and chronic kidney disease with heart failure and stage 1 through stage 4 chronic kidney disease, or unspecified chronic kidney disease (principal); I50.33 Acute on chronic diastolic (congestive) heart failure; N17.0 Acute kidney failure with tubular necrosis; J96.11 Chronic respiratory failure with hypoxia; J44.0 Chronic obstructive pulmonary disease with (acute) lower respiratory infection; I31.39 Other pericardial effusion (noninflammatory); R18.8 Other ascites; J90 Pleural effusion, not elsewhere classified; R11.2 Nausea with vomiting, unspecified; Z99.81 Dependence on supplemental oxygen; E78.5 Hyperlipidemia, unspecified; E87.6 Hypokalemia; E83.42 Hypomagnesemia; E03.9 Hypothyroidism, unspecified; N18.9 Chronic kidney disease, unspecified; I50.82 Biventricular heart failure; K74.60 Unspecified cirrhosis of liver; E11.22 Type 2 diabetes mellitus with diabetic chronic kidney disease; F32.A Depression, unspecified; I95.9 Hypotension, unspecified; I08.1 Rheumatic disorders of both mitral and tricuspid valves; I27.29 Other secondary pulmonary hypertension; Z79.811 Long term (current) use of aromatase inhibitors; Z79.84 Long term (current) use of oral hypoglycemic drugs; Z79.890 Hormone replacement therapy; Z79.899 Other long term (current) drug therapy; Z85.3 Personal history of malignant neoplasm of breast; Z86.16 Personal history of COVID-19; Z85.828 Personal history of other malignant neoplasm of skin; Z87.01 Personal history of pneumonia (recurrent); M19.90 Unspecified osteoarthritis, unspecified site; Z90.13 Acquired absence of bilateral breasts and nipples; Z87.11 Personal history of peptic ulcer disease; Z90.710 Acquired absence of both cervix and uterus; Z88.5 Allergy status to narcotic agent; Z87.19 Personal history of other diseases of the digestive system; Z90.49 Acquired absence of other specified parts of digestive tract; Z98.42 Cataract extraction status, left eye; Z98.41 Cataract extraction status, right eye
CPT/HCPCS: 36415; 71045; 74176; 76705; 80048; 80053; 81001; 83036; 83605; 83735; 83880; 84439; 84443; 84484; 85025; 85610; 85730; 93005; 93306; 93970; 99285